=== PATIENT | male | born 1950 | race Caucasian/White ===

== ENCOUNTER 2024-04-14 16:10 | Inpatient (IN) | payer MEDICARE, SELFPAY ==
[2024-04-14] VITALS (10 sets, daily range): BP systolic 117–208; BP diastolic 69–118; BMI 21.7
[2024-04-14 11:53] LABS: Glucose - Point of Care 92 mg/dl (70-99)
[2024-04-14 12:36] LABS: ALT (SGPT) 22 U/L (0-50); AST (SGOT) 25 U/L (17-59); Alkaline Phosphatase 134 U/L (38-126); Blood Urea Nitrogen 26 mg/dl (9-20); Carbon Dioxide 22 mmol/L (22-30); Chloride 103 mmol/L (98-107); Glucose 91 mg/dl (70-99); Sodium 142 mmol/L (135-145); Total Bilirubin 1.1 mg/dl (0.2-1.3); Total Protein 7.6 g/dl (6.3-8.2); eGFR > 60.00
[2024-04-14 12:45] LABS: Hematocrit 49.2 % (39.0-52.0); Hemoglobin 16.9 g/dL (13.0-18.0); Mean Corp Hgb Conc. 34.3 g/dL (33.0-37.0); Mean Corpuscular Hgb 29.5 pg (27.0-31.0); Mean Corpuscular Volume 85.9 fL (80.0-94.0); Mean Platelet Volume 10.3 fL (7.4-10.4); Platelet Count 437 10^3/uL (130-400); Red Blood Cell Count 5.73 10^6/uL (4.70-6.10); Red Cell Dist. Width 12.7 % (11.5-14.5); White Blood Cell Count 26.4 10^3/uL (4.8-10.8)
[2024-04-14 12:47] LABS: % Basophils 0.5 % (0-2); % Eosinophils 0.1 % (0-6); % Immature Granulocytes 1.2 % (0-0.5); % Lymphocytes 3.8 % (20.5-51.1); % Monocytes 5.1 % (1.7-9.3); % Neutrophils 89.3 % (42.2-75.2); Absolute Basophils 0.1 10^3/uL (0-0.2); Absolute Immature Granulocytes 0.3 10^3/uL (0-0.05); Absolute Monocytes 1.4 10^3/uL (0.1-0.6); Absolute Neutrophils 23.6 10^3/uL (1.4-6.5); Nucleated Red Blood Cells % 0 % (-)
[2024-04-14 13:06] LABS: Urine Albumin 3+ (Neg - Trace); Urine Bilirubin Negative (Negative); Urine Character Cloudy (Clear); Urine Color Yellow; Urine Glucose Negative (Negative); Urine Ketone Negative (Negative); Urine Leukocyte 3+ (Negative); Urine Nitrite Negative (Negative); Urine Occult Blood 4+ (Negative); Urine Specific Gravity 1.015 (<1.030); Urine Urobilinogen Negative (Neg - 1+)
[2024-04-14 13:20] LABS: COVID-19 Antigen Negative (Negative)
[2024-04-14 13:31] LABS: Troponin I < 0.012 ng/ml
[2024-04-14 13:43] LABS: Urine Amorphous Seen; Urine Squamous Cell 0-2 /LPF (Few)
[2024-04-14 13:45] LABS: Urine Bacteria Many (Negative); Urine White Cell >100 /HPF (0-5)
--- NOTE | 2024-04-14 14:07 | ED.GENMED ---
History of Present Illness
General
Chief Complaint: Change in Mental Status
Source: patient
Exam Limitations: none
Time Seen by Provider: 04/14/24 12:40
History of Present Illness
History of Present Illness:
73-year-old male presents from nursing facility with history of not acting himself. He seemed confused earlier today per staff. He has a history of a stroke resulting in right-sided deficit. He is minimally conversive. No reported fever.
Patient does not provide any history of pain.
Past History
Past History
ED Past Medical History: CVA, HTN, Hypercholesterolemia and Psychiatric
ED Past Surgical History: Other
Social History
Tobacco: Non-smoker
Alcohol: Daily (wine)
Drug: None
Personal:
Living: alone
Employment: Disabled
Family History
Family History: Other
Phy Exam
Physical Exam
Physical Exam:
General: Well developed male no acute respiratory distress
HEENT: Normocephalic atraumatic
Heart: Tachycardic but regular
Lungs: Clear no wheeze
Abdomen is slightly distended and tender over the suprapubic region.
Extremities: No cyanosis
Skin: Warm but diaphoretic
Course
Orders/Labs/Results
Orders:
Orders
04/14/24 11:46
Electrocardiogram (*1) Urgent
Reason for Study: TIA/Stroke
EKG- Treatment ONCE
04/14/24 12:09
CMP [Comprehensive Metabolic Panel] Urgent
Complete Blood Count/With Diff Urgent
04/14/24 12:45
Lidocaine 2% [Lidocaine Uro-Jet 2%] 1 syringe .ROUTE .STK-MED ONE
04/14/24 12:51
CT Head W/o Iv Contrast Urgent
Comment:
Reason For Exam: change of mental status
04/14/24 12:53
CR Chest Portable - 1 View Urgent
Comment:
Reason For Exam: change of mental status
Reason Study Needs to be Portable: Unable to Transport
04/14/24 12:57
COVID-19 Antigen Urgent
Source: Nasal Swab
Troponin I Urgent
Urinalysis Reflex To Culture Urgent
Date Specimen was Collected: 04/14/24
Time Specimen was Collected: 11:46
Urine Microscopic Reflex Cult Urgent
Influenza A+B Rapid Molecular Urgent
REHANA Source: Nasal Swab
Specimen Description:
Urine Culture Urgent
REHANA Source: U
Specimen Description:
Date Specimen was Collected: 04/14/24
Time Specimen was Collected: 11:46
04/14/24 14:10
0.9% Sodium Chloride 1000 ml [Nss] 1,000 ml IV BOLUS
CefTRIAXone [Rocephin] 1,000 mg IV NOW STA
04/14/24 15:00
Blood Culture Q30M
REHANA Source: Blood/Venous
Specimen Description:
04/14/24 15:30
Blood Culture Q30M
REHANA Source: Blood/Venous
Specimen Description:
Abnormal Lab Results
04/14/24 04/14/24
12:09 12:57
WBC 26.4 H 10^3/uL
(4.8-10.8)
Plt Count 437 H 10^3/uL
(130-400)
Abs Immat Gran (auto) 0.3 H 10^3/uL
(0-0.05)
Absolute Neuts (auto) 23.6 H 10^3/uL
(1.4-6.5)
Absolute Lymphs (auto) 1.0 L 10^3/uL
(1.2-3.4)
Absolute Monos (auto) 1.4 H 10^3/uL
(0.1-0.6)
Immature Gran % 1.2 H %
(0-0.5)
Neutrophils % 89.3 H %
(42.2-75.2)
Lymphocytes % 3.8 L %
(20.5-51.1)
BUN 26 H mg/dl
(9-20)
Alkaline Phosphatase 134 H U/L
(38-126)
Ur Occult Blood Reflex 4+ A
(Negative)
Leukocyte Esterase Rfl 3+ A
(Negative)
Urine RBC 3-6 A /HPF
(0-2)
Urine WBC (Reflex) >100 A /HPF
(0-5)
Urine Bacteria (Reflex) Many A
(Negative)
Urine Albumin (Reflex) 3+ A
(Neg - Trace)
04/14/24 12:09
04/14/24 12:09
Vital Signs
Initial and Last Documented VS:
Initial Vital Signs
Pulse Resp BP Pulse Ox
102 28 208/118 96
04/14/24 11:47 04/14/24 11:47 04/14/24 11:47 04/14/24 11:47
Last Documented Vital Signs
Temp Pulse Resp BP Pulse Ox
98 F 90 16 139/76 94
04/14/24 12:11 04/14/24 14:33 04/14/24 14:33 04/14/24 14:33 04/14/24 14:33
MDM/Problems Addressed
Differential Diagnosis Includes:
Patient with elevated blood pressure readings and change in mental status from nursing facility. History of CVA. Differential could include infectious source CVA. He is suprapubic area is distended and tender on exam consider urinary retention.
Bedside bladder scan demonstrates greater than 600 mL in his bladder.
Rey catheter was inserted for acute urinary retention and the blood pressure improved. Labs demonstrated white blood cell count of 26,000. Catheterized urine specimen concerning for infection.
*Critical Care Note
Total Time (30-74mins, 75-104mins- exclusive of procedures): Not Applicable
Update Note
Update Note:
Workup demonstrates leukocytosis with a white count of 26,000. Urinalysis suggestive of UTI. Patient had acute urinary retention and Rey catheter was placed. Blood cultures ordered. Fluids ordered. Rocephin ordered. Will mid to hospital for
mental status, leukocytosis in the setting of UTI
ED Attending Note
-
Portions of this chart may have been created with voice recognition software.� Occasional wrong word or��sound alike� substitutions may have occurred due to the inherent limitations of voice recognition software.
Discharge Plan
Departure
Patient Disposition: Admit
Date of Disposition: 04/14/24
Time of Disposition: 15:12
Presentation/result/management discussed w/ accepting MD/DO: Hospitalist
Discharge Problem:
Acute UTI
Prescriptions:
No Action
atorvastatin 40 MG tablet
80 mg PO DAILY
lamotrigine 200 MG tablet
200 mg PO DAILY
lisinopril 40 MG tablet
40 mg PO DAILY
aspirin 81 MG tablet,delayed release (DR/EC)
81 mg PO DAILY 0RF
melatonin 5 MG tablet
5 mg PO HSPRN PRN (Reason: sleep) 0RF
thiamine HCl (vitamin B1) 100 MG tablet
100 mg PO DAILY 0RF
meloxicam [Mobic] 7.5 mg Tablet
7.5 mg PO DAILY
venlafaxine 100 mg Tablet
100 mg PO DAILY
amitriptyline 25 mg Tablet
25 mg PO HS
aripiprazole [Abilify] 5 mg Tablet
7 mg PO DAILY
bupropion HCl [Wellbutrin XL] 300 mg Tablet Extended Release 24 Hr
450 mg PO DAILY
Janumet 50-500 mg Tablet
1 tab PO BID
insulin glargine [Basaglar KwikPen U-100 Insulin] 100 unit/mL (3 mL) Insulin Pen
12 unit SC QPM
Cyanacobalamin
1,000 mcg PO DAILY
Referrals:
Silas Crooks DO [Family Provider] -
Interventions
Interventions:
*Risk Screen - Suicide Last Done: 04/14/24 12:08
*Neglect/Abuse Screening Last Done: 04/14/24 12:08
ED- Fall Risk Assessment Last Done: 04/14/24 13:00
*ED COVID-19 Vaccine History Last Done: 04/14/24 12:11
ED- Pulmonary Assessment Last Done: 04/14/24 13:00
ED- Neurological Assessment Last Done: 04/14/24 13:00
ED- Cardiac Assessment Last Done: 04/14/24 13:00
Discharge Date and Time
Print Language: COMORAN
[2024-04-14] MEDS: ROCEPHIN 1000 MG IV (14:31)
[2024-04-14] MEDS: NSS 1000 IV ×2 (14:31→21:46)
--- NOTE | 2024-04-14 15:25 | HPS.HSE ---
Addendum entered and electronically signed by Dinorah So MD 04/14/24 16:48:
*hx Bipolar
-UNEMPLOYMENT EXAMINER regimen as listed below
Addendum entered and electronically signed by Dinorah So MD 04/14/24 16:47:
Imaging:
Head CT:
IMPRESSION:
There are no acute intracranial abnormalities.
There is moderate diffuse cortical atrophy with nonspecific moderate white matter changes as described above.
There is old 4 cm left occipital infarct which was not present on the prior study
There is old 4 cm left parietal infarct which was present on the prior study
There is old 1.8 cm infarct in the left lentiform nucleus and centrum semiovale which was present on the previous examination
CXR
IMPRESSION:
No active cardiopulmonary disease.
Original Note:
Family Physician
-
Family Physician: Silas Crooks DO
Chief Complaint
-
altered mental status
History of Present Illness
Mr. Kieran Walsh is a 73 yo man with hx CVA with residual right-sided weakness, essential HTN, HLD, [place] resident presents with confusion.
Patient on exam is very somnolent and is not conversant. He nods slowly yes or no, mainly with eyes closed. Seen with friend at bedside. Friend states patient has been declining over past several years; had stroke 10 years ago. He has not been
ambulatory for several years, wheelchair bound. This morning he was found to be lethargic and so brought to the ER.
Patient cannot answer ROS questions given somnolence.
Medical History
Past Medical History
Past Medical History: Reports Other (hx CVA with residual right-sided weakness, essential HTN, HLD)
Past Surgical History: Reports Other
Social History
Tobacco: Non-smoker
Family History
Family History: Not pertinent
Allergies / Home Medications
Allergies reflects when Allergies were last updated in [employer].
Home Medications with original date entered in [employer]
Allergy/Medication List:
Allergies
Allergy/AdvReac Type Severity Reaction Status Date / Time
influenza virus vaccine, Allergy Unknown made him Verified 04/14/24 14:02
specific sick and
got the flu
STERI STRIPS Allergy Unknown Unknown Uncoded 04/14/24 14:02
steri strips Allergy Rash Uncoded 04/14/24 14:02
Home Medications
atorvastatin 40 mg tablet 80 mg PO DAILY High cholesterol 08/29/16
lamotrigine 200 mg tablet 200 mg PO DAILY Mental Health/Anxiety 09/10/20
lisinopril 40 mg tablet 40 mg PO DAILY Blood pressure 09/10/20
aspirin 81 mg tablet,delayed release 81 mg PO DAILY 09/13/20
melatonin 5 mg tablet 5 mg PO HSPRN PRN sleep 09/26/20
thiamine HCl (vitamin B1) 100 mg tablet 100 mg PO DAILY 01/03/21
Cyanacobalamin 1,000 mcg PO DAILY 04/14/24
amitriptyline 25 mg tablet 25 mg PO HS 04/14/24
aripiprazole 5 mg tablet (Abilify) 7 mg PO DAILY 04/14/24
bupropion HCl 300 mg 24 hr tablet, extended release (Wellbutrin XL) 450 mg PO DAILY 04/14/24
insulin glargine 100 unit/mL (3 mL) subcutaneous pen (Basaglar KwikPen U-100 Insulin) 12 unit SC QPM 04/14/24
meloxicam 7.5 mg tablet 7.5 mg PO DAILY 04/14/24
sitagliptin phosphate 50 mg-metformin 500 mg tablet (Janumet) 1 tab PO BID 04/14/24
venlafaxine 100 mg tablet 100 mg PO DAILY 04/14/24
Review of Systems
-
Unable to obtain full review of systems at this time due to: Patient Non-verbal
History Source: Patient
Physical Exam
Vital Signs
Vital Signs
Temp Pulse Resp BP Pulse Ox
98 F 90 16 139/76 94
04/14/24 12:11 04/14/24 14:33 04/14/24 14:33 04/14/24 14:33 04/14/24 14:33
Physical Exam
General: Other (patient is somnolent, opens eyes to voice but does not speak; nods no to pain )
HEENT: PERRLA
Respiratory: Clear; No Wheezes
Cardiac: S1/S2 and Regular Rhythm
GI: Soft and Non Tender
Musculoskeletal: No Edema
Skin: Warm and Dry; No Rash
Neuro: Awake
Psych: Confused
Laboratory Results
-
04/14/24 12:09
04/14/24 12:09
Laboratory Results
Total Bilirubin 1.1 mg/dl (0.2-1.3) 04/14/24 12:09
AST 25 U/L (17-59) 04/14/24 12:09
ALT 22 U/L (0-50) 04/14/24 12:09
Alkaline Phosphatase 134 U/L (38-126) H 04/14/24 12:09
Troponin I < 0.012 ng/ml 04/14/24 12:57
Data Reviewed
-
Diagnostic Radiology: Report Reviewed by me
Lab Data: Labs Reviewed by me
Impression/Plan
-
Mr. Kieran Walsh is a 73 yo man with hx CVA with residual right-sided weakness, essential HTN, HLD, [place] resident presents with confusion.
Triage VS: T 98, P 102, RR 28, BP 208/118, SpO2 96%
LABS: WBC 26.4, Hg 16.9, PLT 437, Na 142, K+ 4.0, Cl 103, BUN 26, Cr 1.1, Glucose 91, T. Bili 1.1, AST 25, ALT 22, Alk Phos 134, Trop < 0.012
UA with > 100 WBC
Flu and Covid Negative
MAR: IVF, IV Ceftriaxone
Sepsis 2/2 UTI
TME 2/2 Above
-at baseline patient can hold a conversation per friend, he is now lethargic and non-verbal, opens eyes to voice
-admit to medicine
-continue IV Ceftriaxone
-IVF
-F/U blood and urine cultures
-PT/OT/ST
-cannot assess pain, will obatin CT A/P to rule out renal stone
-NPO (hold meds if patient remains lethargic))
IDDM
-given patient NPO and BGL 90's now, will hold long acting insulin (resume if hyperglycemic)
-hold UNEMPLOYMENT EXAMINER Janumet
-ISS low
Hx CVA with residual right-sided weakness
[place] Resident
-UNEMPLOYMENT EXAMINER asa/statin
Essential HTN
-hold UNEMPLOYMENT EXAMINER Lisinopril
Depression/Anxiety
-UNEMPLOYMENT EXAMINER regimen: Venlafaxine, Lamotrigine, Wellbutrin, Abilify, Amitriptyline when able to take PO
Hyperlipidemia
-UNEMPLOYMENT EXAMINER statin
DVT PPx Hep subQ
DNR - confirmed on patient's records from [place]
76 minutes spent on patient care
--- NOTE | 2024-04-14 20:20 | PTCARENOTE ---
Patient admitted from ED. Patient AAO x1 to self, on RA, jackson catheter in place, pt in no acute distress. Patient is minimally conversive and able to answer some yes/no questions. Patient is a Q2H turn/reposition. Skin assessment complete. Bed
alarm is active. Call mckinnon within reach.
[2024-04-14 21:28] LABS: Glucose - Point of Care 79 mg/dl (70-99)
[2024-04-14] MEDS: NOVOLOG FLEXPEN-LOW RESISTANCE SC (21:40)
[2024-04-14] MEDS: LOVENOX 40 MG SC (21:46)
[2024-04-14] MEDS: ELAVIL 25 MG PO (21:46)
[2024-04-15 06:08] LABS: Glucose - Point of Care 69 mg/dl (70-99)
[2024-04-15] MEDS: NSS 1000 IV ×2 (06:12→17:43)
[2024-04-15 06:24] LABS: Glucose - Point of Care 85 mg/dl (70-99)
--- NOTE | 2024-04-15 06:40 | PTCARENOTE ---
Patient blood glucose 69. Given apple juice and rechecked 15 minutes later - blood glucose 85. Patient is asymptomatic. Will continue to monitor.
[2024-04-15] MEDS: NOVOLOG FLEXPEN-LOW RESISTANCE SC ×2 (06:53→12:30)
[2024-04-15 07:06] VITALS: BP 142/72
[2024-04-15 08:03] LABS: Blood Urea Nitrogen 23 mg/dl (9-20); Calcium 8.1 mg/dl (8.4-10.2); Carbon Dioxide 23 mmol/L (22-30); Chloride 107 mmol/L (98-107); Estimated Creatinine Clearance 92 ml/min; Glucose 59 mg/dl (70-99); Magnesium 1.7 mg/dl (1.6-2.3); Potassium 3.4 mmol/L (3.5-5.1); Sodium 143 mmol/L (135-145); eGFR > 60.00
[2024-04-15] MEDS: EFFEXOR 100 MG PO (08:26)
[2024-04-15] MEDS: ABILIFY 7 MG PO (08:26)
[2024-04-15] MEDS: LIPITOR 80 MG PO (08:26)
[2024-04-15] MEDS: ASPIR LOW (ENTERIC COATED) 81 MG PO (08:26)
[2024-04-15] MEDS: WELLBUTRIN XL (24 hour extended release) 450 MG PO (08:27)
[2024-04-15] MEDS: LAMICTAL 200 MG PO (08:27)
--- NOTE | 2024-04-15 08:54 | W.PN.HOSP.TC ---
Addendum entered and electronically signed by Linda Sutherland MD 04/15/24 15:52:
I saw and evaluated the patient. I reviewed the resident�s note and agree with findings and plan as documented in the resident�s note.
A/P:
# Acute metabolic encephalopathy 2/2 UTI
# Sepsis secondary to complicated UTI
- tachycardia, leukocytosis, tachypnea on admission w/ source of infection (UA suggestive of UTI). S/p 3L IVF.
- Follow blood Cx and urine culture. C/w empiric Ceftriaxone
- MS significantly improved, today awake and conversant
# Acute urinary retention
s/p jackson placement on admission, consider TOV tmr
Start empiric Flomax
# Dysphagia
- cleared by speech for IDDSI 4 diet w/ thin liquids. Speech rec NPO if mental status deteriorates again.
# Expressive Aphasia, resolved
- CT Head demonstrates prior ischemic damage. Residual weakness and decorticate flexion of R arm. Patient's friend at bedside admits expressive aphasia as a chronic issue post stroke. Will continue to monitor mental status.
# Thrombocytosis - likely reactive secondary to UTI, improving
# IDDM
resume STAFF TECHNOLOGIST Lantus but at lower dose at 8 units HS
cover with ISS for now.
# History fo CVA - c/w aspirin & plavix.
# Hypercholesterolemia - c/w atorvastatin
# Essential Hypertension
resume STAFF TECHNOLOGIST lisinopril with holding parameter
# Depression/Anxiety - c/w venlafaxine, lamotrigine, wellbutrin, abilify and amitriptyline.
Diet - IDDSI 4 Puree Diet w/ Thin Liquids
DVT Ppx - on Lovenox SC
Code Status - DNR
Original Note:
Today's Communication/Plan
-
pending cultures. C/w antibiotics.
Assessment / Plan
Assessment / Plan
73 year old male
#Sepsis secondary to UTI
- tachycardia, leukocytosis, tachypnea on admission w/ source of infection (UA suggestive of UTI). S/p 3L IVF.
- Blood Cx pending. urine culture pending. C/w Ceftriaxone pending Cx/Sens.
#Dysphagia
- cleared by speech for IDDSI 4 diet w/ thin liquids. Speech rec NPO if mental status deteriorates again.
#Expressive Aphasia
- CT Head demonstrates prior ischemic damage. Residual weakness and decorticate flexion of R arm. Patient's friend at bedside admits expressive aphasia as a chronic issue post stroke. Will continue to monitor mental status.
#Thrombocytosis - likely multifactorial. Reactive secondary to UTI vs. hemoconcentration. Will monitor.
#IDT2DM - Patient NPO with stable blood glucose; holding home insulin and Janumet. C/w LDISS for now.
#History fo CVA - c/w aspirin & plavix.
#Hypercholesterolemia - c/w atorvastatin
#Essential Hypertension - Likely held in the setting of Sepsis. Will observe for signs of hemodynamic stability before restarting.
#Depression/Anxiety - c/w venlafaxine, lamotrigine, wellbutrin, abilify and amitriptyline.
Diet - IDDSI 4 Puree Diet w/ Thin Liquids
DVT Ppx - on Lovenox SC
Code Status - DNR
Anticipated Discharge: 24 - 48 hours
Subjective/Interval History
-
Patient is AOx3 today. Though, he does have some expressive aphasia which friend bedside let me know is baseline for him. Otherwise he is improving, no new fevers, chills.
Objective Data
-
Labs:
Laboratory Results
04/15/24
05:56
WBC Pending
Hgb Pending
Hct Pending
Plt Count Pending
Sodium 143
Potassium 3.4 L
Chloride 107
Carbon Dioxide 23
BUN 23 H
Creatinine 0.7
Glucose 59 L
Calcium 8.1 L D
Vital Signs:
Vital Signs
Temp Pulse Resp BP Pulse Ox
98.3 F 86 20 142/72 97
04/15/24 07:06 04/15/24 07:06 04/15/24 07:06 04/15/24 07:06 04/15/24 07:06
I&O
04/14/24 04/15/24 04/16/24
06:59 06:59 06:59
Intake Total 240 / 240
Output Total 550 / 550
Balance -310 / -310
Review of Systems
-
History Source: Patient
All other systems: Reviewed and negative
Constitutional: Denies Fever, Night Sweats or Chills
EENT: Denies Sore Throat or Runny Nose
Respiratory: Denies Cough, Trouble Breathing or Wheezing
Cardiac: Denies Chest Pain or Palpitations
Abdomen/GI: Denies Abdominal Pain, Nausea, Vomiting or Diarrhea
Breast: Reports N/A
Genitourinary: Reports UTI; Denies Dysuria or Flank Pain
Musculoskeletal: Denies Joint Pain, Joint Swelling or Muscle Pain
Skin: Denies Rash
Neuro: Reports Weakness (Stable from CVA ); Denies Dizzy or Headache
Hematologic / Lymphatic: Denies Bleeding
Physical Exam
-
General: Well Developed, Well Nourished, No Apparent Distress and Comfortable
HEENT: Normocephalic, Atraumatic, Moist Mucous Membranes, Anicteric, [place] Conjunctivae, PERRLA, Nose Appears Normal and Ears Appear Normal
Respiratory: Clear to Auscultation and Decreased Breath Sounds; Negative Wheezes, Rales or Rhonchi
Cardiac: Regular Rhythm and S1/S2; Negative Murmur or Rub
GI: Soft, Nontender, Nondistended and Normal Bowel Sounds
Rectal: Deferred by Provider
Genito-urinary: Clear Urine and Jackson
Musculoskeletal: No Clubbing, No Cyanosis and No Edema
Skin: Warm and Dry
Neuro: AO x 3 and Other (Expressive aphasia; stable per friend at bedside. Right arm decorticate contracture. )
[2024-04-15] MEDS: KCL 270 MEQ IV (09:18)
[2024-04-15 09:36] LABS: % Basophils 0.7 % (0-2); % Eosinophils 2.1 % (0-6); % Immature Granulocytes 0.9 % (0-0.5); % Lymphocytes 18.4 % (20.5-51.1); % Neutrophils 70.9 % (42.2-75.2); Absolute Basophils 0.1 10^3/uL (0-0.2); Absolute Eosinophils 0.4 10^3/uL (0-0.7); Absolute Immature Granulocytes 0.2 10^3/uL (0-0.05); Absolute Lymphocytes 3.1 10^3/uL (1.2-3.4); Absolute Monocytes 1.2 10^3/uL (0.1-0.6); Hematocrit 40.3 % (39.0-52.0); Hemoglobin 13.7 g/dL (13.0-18.0); Mean Corpuscular Hgb 29.3 pg (27.0-31.0); Mean Corpuscular Volume 86.1 fL (80.0-94.0); Mean Platelet Volume 10.6 fL (7.4-10.4); Nucleated Red Blood Cells % 0 % (-); Platelet Count 312 10^3/uL (130-400); Red Blood Cell Count 4.68 10^6/uL (4.70-6.10)
[2024-04-15 09:55] VITALS: BP 134/74; PULSE 84; O2SAT 96
[2024-04-15 10:05] LABS: Glycohemoglobin (HgbA1c) 5.9 % (4.0-5.6)
--- NOTE | 2024-04-15 10:36 | PTOTSP ---
SPEECH THERAPY SWALLOW EVALUATION:
Patient exhibits clinical signs of oropharyngeal dysphagia, likely chronic related to prior CVA and acutely exacerbated by sepsis 2/2 UTI, TME. Patient remains at risk for aspiration and related complications given confusion and limited mobility.
CXR currently clear. Recommend temporary modified diet IDDSI Level 4 Puree, thin liquids. Medications whole in puree. Aspiration precautions: 1:1 assistance; Upright positioning; Small sips/bites; Slow rate of intake; Ensure patient swallows prior
to next bite; Monitor for signs of aspiration and d/c oral diet if any decline in mental/respiratory status. Swallow prognosis is likely good. ST to follow at the acute care level, determine indication for instrumental assessment of swallowing as
appropriate, monitor CXR/labs/respiratory status, and provide continued diagnostic therapy as appropriate.
RECOMMEND:
1) IDDSI Level 4 Puree, thin liquids
2) Medications whole in puree
3) Aspiration precautions: 1:1 assistance; Upright positioning; Small sips/bites; Slow rate of intake; Ensure patient swallows prior to next bite; Monitor for signs of aspiration and d/c oral diet if any decline in mental/respiratory status
4) Oral care 3x/day
5) ST to follow
[2024-04-15 12:29] LABS: Glucose - Point of Care 98 mg/dl (70-99)
[2024-04-15] MEDS: STERILE WATER FOR INJECTION 10 ML IV (13:14)
[2024-04-15] MEDS: ROCEPHIN 1000 MG IV (13:14)
[2024-04-15 15:05] VITALS: BP 122/71
--- NOTE | 2024-04-15 15:08 | WOUNDNOTE ---
[facility] RN NOTE: Reviewed chart and met with patient. Patient found sitting in chair eating lunch. Patient stood for assessment with assistance from DEEJAY Leroy. No open wound on buttocks, but there are scattered dry areas that may me do from friction. 5
layer silicone border foam applied to sacrum and air cushion applied to chair. Patient reported comfort after these measures. DEEJAY Leroy to add static air overlay to bed before patient gets back into bed. Patient has jackson for moisture management. Will
sign off.
--- NOTE | 2024-04-15 15:12 | CM ---
Patient seen at bedside. Patient states that he lives in an assisted living. CM reviewed chart and Patient is LTC at [facility]. Patient is a wheelchair dependent patient with one person assist for transfers per Admissions at [facility]. CM will continue to
follow for discharge planning needs.
Plan; return to SNF [facility] when medically appropriate
--- NOTE | 2024-04-15 15:12 | PN.CDI ---
CDI
- -
CDI:
Physician Documentation Request
Admit Date: 04/14/24 16:10
Dear Doctor Koko,
Please review the following and provide your response in the progress notes.
Clinical Indicators:
Pt admitted with Sepsis, UTI, and TME.
04/14 In wound panel RN documented sacral PI POA
Physician documentation of the type and location of wounds is required for compliant documentation. Based on the above clinical findings and your assessment, please provide the following in your progress note:
Location of the ulcer/wound, including laterality.
Type (etiology) of ulcer/wound:
Sacral Pressure Injury POA
Non-pressure wound POA
Other
Use of terms such as suspected, likely, concern for, or probable (associated with a specific diagnosis that is being evaluated, monitored, or treated as if it exists) are acceptable and can be coded in the inpatient setting, when documented at the
time of discharge.
Thank you,
Tasia Reza RN, BSN
CDI Specialist
[place] [employer]
Please use your independent medical judgment in providing your response.
*Source: National Pressure Ulcer Advisory Panel (NPUAP)
[2024-04-15 15:30] VITALS: BMI 21.7
[2024-04-15 16:47] LABS: Glucose - Point of Care 163 mg/dl (70-99)
[2024-04-15] MEDS: LOVENOX 40 MG SC (17:44)
[2024-04-15] MEDS: NOVOLOG FLEXPEN-LOW RESISTANCE 1 UNITS SC (17:45)
[2024-04-15 22:01] LABS: Glucose - Point of Care 154 mg/dl (70-99)
[2024-04-15] MEDS: LANTUS 0.08 UNITS SC (22:09)
[2024-04-15] MEDS: ELAVIL 25 MG PO (22:09)
[2024-04-15 23:55] VITALS: BP 133/72
[2024-04-16] MEDS: NSS 1000 IV (02:43)
[2024-04-16 07:00] VITALS: BP 149/79
[2024-04-16 07:31] LABS: Glucose - Point of Care 83 mg/dl (70-99)
[2024-04-16] MEDS: NOVOLOG FLEXPEN-LOW RESISTANCE SC ×2 (07:36→12:16)
[2024-04-16] MEDS: WELLBUTRIN XL (24 hour extended release) 450 MG PO (08:12)
[2024-04-16] MEDS: ABILIFY 7 MG PO (08:12)
[2024-04-16] MEDS: ASPIR LOW (ENTERIC COATED) 81 MG PO (08:12)
[2024-04-16] MEDS: ZESTRIL 40 MG PO (08:13)
[2024-04-16] MEDS: FLOMAX 0.4 MG PO (08:13)
[2024-04-16] MEDS: LAMICTAL 200 MG PO (08:13)
[2024-04-16] MEDS: EFFEXOR 100 MG PO (08:13)
[2024-04-16] MEDS: LIPITOR 80 MG PO (08:14)
--- NOTE | 2024-04-16 08:31 | W.PN.HOSP.TC ---
Addendum entered and electronically signed by Khloe Guzman MD 04/16/24 15:11:
I saw and evaluated the patient independently. I reviewed the resident�s note and agree with findings and plan as documented by Dr. Cifuentes.
GENERAL: well developed, well nourished, male in no apparent distress
HEENT: NC/AT
HEART: regular rate and rhythm, +S1, +S2
LUNGS : clear to auscultation bilaterally
ABDOM: soft, nontender, nondistended, + bowel sounds
EXT: no cyanosis, clubbing, or edema
NEUROLOGIC: right sided contractures with expressive aphasia
: jackson cath
Sepsis (POA) secondary to Enterococcus UTI --blood cultures negative--WBC improved 26.4 to 8.7--cont rocephin
Dysphagia/expressive aphasia/CVA-- cleared by speech for IDDSI 4 diet w/thin liquids
urinary retention--likely cause of sepsis since not voiding well and 'pus' removed with jackson placement--start low dose flomax
Thrombocytosis - likely multifactorial. Reactive secondary to UTI vs. hemoconcentration. Will monitor.
type 2 DM insulin requiring - C/w basal insulin 8U and low dose ISS-- can restart Janumet
History of CVA - Right sided hemiparalysis w/ residual left sided weakness. Unable to ambulate. c/w aspirin & plavix.
Hypercholesterolemia - c/w atorvastatin
Essential Hypertension - Likely held in the setting of Sepsis. Restarted on Lisinopril.
Depression/Anxiety - c/w venlafaxine, lamotrigine, wellbutrin, abilify and amitriptyline.
DVT Proph - on Lovenox SC
Code Status - DNR
Hopeful d/c back to [facility] Thursday
Original Note:
Today's Communication/Plan
-
Pending cultures. C/w Abx.
Assessment / Plan
Assessment / Plan
73 year old male
#Sepsis secondary to UTI
#Leukocytosis (resolved)
- tachycardia, leukocytosis, tachypnea on admission w/ source of infection (UA suggestive of UTI). S/p 3L IVF.
- Blood Cx NGTD x24hr. urine culture pending. C/w Ceftriaxone pending Cx/Sens.
#Dysphagia
- cleared by speech for IDDSI 4 diet w/ thin liquids. Speech rec NPO if mental status deteriorates again.
#Expressive Aphasia
- CT Head demonstrates prior ischemic damage. Residual weakness and decorticate flexion of R arm. Patient's friend at bedside admits expressive aphasia as a chronic issue post stroke. Will continue to monitor mental status.
#Thrombocytosis - likely multifactorial. Reactive secondary to UTI vs. hemoconcentration. Will monitor.
#IDT2DM - C/w basal insulin 8U and LDISS. Hold Janumet for now.
#History of CVA - Right sided hemiparalysis w/ residual left sided weakness. Unable to ambulate. c/w aspirin & plavix.
#Hypercholesterolemia - c/w atorvastatin
#Essential Hypertension - Likely held in the setting of Sepsis. Restarted on Lisinopril.
#Depression/Anxiety - c/w venlafaxine, lamotrigine, wellbutrin, abilify and amitriptyline.
Diet - IDDSI 4 Puree Diet w/ Thin Liquids
DVT Ppx - on Lovenox SC
Code Status - DNR
Anticipated Discharge: 24 - 48 hours
Subjective/Interval History
-
Feeling well. No new fevers or chills.
Objective Data
-
Labs:
Laboratory Results
04/16/24
08:29
WBC Pending
Hgb Pending
Hct Pending
Plt Count Pending
Sodium Pending
Potassium Pending
Chloride Pending
Carbon Dioxide Pending
BUN Pending
Creatinine Pending
Glucose Pending
Calcium Pending
Total Bilirubin Pending
AST Pending
ALT Pending
Alkaline Phosphatase Pending
Vital Signs:
Vital Signs
Temp Pulse Resp BP Pulse Ox
97.5 F 79 18 149/79 100
04/16/24 07:00 04/16/24 08:13 04/16/24 07:00 04/16/24 08:13 04/16/24 07:00
I&O
04/15/24 04/16/24 04/17/24
06:59 06:59 06:59
Intake Total 240 / 240 1650 / 1650
Output Total 550 / 550 450 / 450
Balance -310 / -310 1200 / 1200
Review of Systems
-
History Source: Patient
Constitutional: Reports No Symptoms
EENT: Reports No Symptoms Reported
Respiratory: Reports No Symptoms
Cardiac: Reports No Symptoms
Abdomen/GI: Reports No Symptoms
Genitourinary: Reports No Symptoms
Musculoskeletal: Reports No Symptoms
Neuro: Reports Weakness and Other (R hemiparesis w/ left sided weakness)
Physical Exam
-
General: Well Developed, Well Nourished, No Apparent Distress and Comfortable
HEENT: Normocephalic, Atraumatic, Moist Mucous Membranes, Anicteric, Vidor Conjunctivae, PERRLA, Nose Appears Normal and Ears Appear Normal
Respiratory: Clear to Auscultation; Negative Wheezes, Rales or Rhonchi
Cardiac: Regular Rhythm and S1/S2; Negative Murmur or Tachycardic
Breast: N/A
GI: Soft, Nontender, Nondistended and Normal Bowel Sounds
Genito-urinary: Clear Urine and Jackson
Musculoskeletal: No Clubbing, No Cyanosis and No Edema
Skin: Warm and Dry
Neuro: AO x 3 and Other (R sided hemiparesis w/ contracture & residual left sided weakness.)
[2024-04-16 09:17] LABS: % Basophils 0.6 % (0-2); % Immature Granulocytes 0.7 % (0-0.5); % Lymphocytes 16.1 % (20.5-51.1); % Monocytes 6.8 % (1.7-9.3); % Neutrophils 71.8 % (42.2-75.2); Absolute Basophils 0.1 10^3/uL (0-0.2); Absolute Eosinophils 0.4 10^3/uL (0-0.7); Absolute Immature Granulocytes 0.1 10^3/uL (0-0.05); Absolute Lymphocytes 1.4 10^3/uL (1.2-3.4); Absolute Monocytes 0.6 10^3/uL (0.1-0.6); Absolute Neutrophils 6.3 10^3/uL (1.4-6.5); Hematocrit 37.8 % (39.0-52.0); Hemoglobin 12.4 g/dL (13.0-18.0); Mean Corp Hgb Conc. 32.8 g/dL (33.0-37.0); Mean Corpuscular Hgb 29.2 pg (27.0-31.0); Mean Corpuscular Volume 88.9 fL (80.0-94.0); Mean Platelet Volume 10.2 fL (7.4-10.4); Nucleated Red Blood Cells % 0 % (-); Platelet Count 238 10^3/uL (130-400); Red Blood Cell Count 4.25 10^6/uL (4.70-6.10); White Blood Cell Count 8.7 10^3/uL (4.8-10.8)
[2024-04-16 09:35] LABS: ALT (SGPT) 15 U/L (0-50); AST (SGOT) 20 U/L (17-59); Albumin 3.7 g/dl (3.5-5.0); Alkaline Phosphatase 87 U/L (38-126); Blood Urea Nitrogen 12 mg/dl (9-20); Calcium 8.2 mg/dl (8.4-10.2); Carbon Dioxide 26 mmol/L (22-30); Chloride 103 mmol/L (98-107); Estimated Creatinine Clearance 108 ml/min; Glucose 102 mg/dl (70-99); Potassium 3.5 mmol/L (3.5-5.1); Sodium 140 mmol/L (135-145); Total Bilirubin 0.7 mg/dl (0.2-1.3); Total Protein 6.2 g/dl (6.3-8.2); eGFR > 60.00
[2024-04-16 10:10] VITALS: BP 141/79
[2024-04-16 11:10] VITALS: BP 141/79
[2024-04-16 12:05] LABS: Glucose - Point of Care 133 mg/dl (70-99)
[2024-04-16 15:00] VITALS: BP 134/74
[2024-04-16] MEDS: ROCEPHIN 1000 MG IV (15:08)
[2024-04-16] MEDS: STERILE WATER FOR INJECTION 10 ML IV (15:08)
--- NOTE | 2024-04-16 15:21 | CM ---
Addendum entered by Cher Fletcher 04/17/24 16:30:
Pt not medically cleared for discharge today to [facility]. Will follow to coordinate transport at discharge.
Original Note:
CM anticipates pt's return to [facility] tomorrow. Will follow to coordinate transport at discharge.
[2024-04-16 16:53] LABS: Glucose - Point of Care 155 mg/dl (70-99)
[2024-04-16] MEDS: NOVOLOG FLEXPEN-LOW RESISTANCE 1 UNITS SC (17:01)
[2024-04-16] MEDS: LOVENOX 40 MG SC (17:01)
[2024-04-16 21:07] LABS: Glucose - Point of Care 124 mg/dl (70-99)
[2024-04-16] MEDS: LANTUS 0.08 UNITS SC (21:32)
[2024-04-16] MEDS: ELAVIL 25 MG PO (21:32)
[2024-04-16 23:09] VITALS: BP 161/86
[2024-04-17] VITALS (9 sets, daily range): BP systolic 124–212; BP diastolic 73–127
--- NOTE | 2024-04-17 05:26 | PTCARENOTE ---
Patient refusing morning labs.
--- NOTE | 2024-04-17 06:20 | PTCARENOTE ---
Rey catheter removed at 0600 per order.
[2024-04-17 08:08] LABS: Glucose - Point of Care 87 mg/dl (70-99)
[2024-04-17] MEDS: NOVOLOG FLEXPEN-LOW RESISTANCE SC ×3 (08:08→18:14)
[2024-04-17] MEDS: FLOMAX PO ×2 (08:11→08:38)
[2024-04-17] MEDS: LAMICTAL PO ×2 (08:11→08:38)
[2024-04-17] MEDS: ABILIFY PO ×2 (08:11→08:38)
[2024-04-17] MEDS: LIPITOR PO ×2 (08:11→08:38)
[2024-04-17] MEDS: EFFEXOR PO ×2 (08:11→08:38)
[2024-04-17] MEDS: ASPIR LOW (ENTERIC COATED) PO ×2 (08:11→08:38)
[2024-04-17] MEDS: VITAMIN B1 PO ×2 (08:12→08:38)
[2024-04-17] MEDS: VITAMIN B-12 PO ×2 (08:12→08:38)
[2024-04-17] MEDS: ZESTRIL 40 MG PO (08:12)
[2024-04-17] MEDS: WELLBUTRIN XL (24 hour extended release) PO ×2 (08:12→08:38)
[2024-04-17] MEDS: MOBIC PO ×2 (08:12→08:38)
--- NOTE | 2024-04-17 08:46 | W.PN.HOSP.TC ---
Addendum entered and electronically signed by Khole Guzman MD 04/17/24 20:36:
I saw and evaluated the patient independently. I reviewed the resident�s note and agree with findings and plan as documented by Dr. Cifuentes.
GENERAL: well developed, well nourished, male paranoid, cold, clammy, diaphoretic
HEENT: NC/AT
HEART: regular rate and rhythm, +S1, +S2
LUNGS : clear to auscultation bilaterally
ABDOM: soft, nontender, nondistended, + bowel sounds
EXT: no cyanosis, clubbing, or edema
NEUROLOGIC: right sided contractures with expressive aphasia
: jackson cath
Sepsis (POA) secondary to Enterococcus UTI --blood cultures negative--WBC improved 26.4 to 8.7--cont rocephin
Dysphagia/expressive aphasia/CVA-- cleared by speech for IDDSI 4 diet w/thin liquids
urinary retention--likely cause of sepsis since not voiding well and 'pus' removed with jackson placement--started low dose flomax--jackson removed today and nursing reported pt urinating on his own
agitation/paranoia--refusing meds and blood draws--asked psych to see
Thrombocytosis - likely multifactorial. Reactive secondary to UTI vs. hemoconcentration. Will monitor.
type 2 DM insulin requiring - C/w basal insulin 8U and low dose ISS-- was going to restart Janumet (now need to hold with CT scan with IV contrast)
History of CVA - Right sided hemiparalysis w/ residual left sided weakness. Unable to ambulate. c/w aspirin & plavix.
Hypercholesterolemia - c/w atorvastatin
Essential Hypertension - Likely held in the setting of Sepsis. Restarted on Lisinopril.
Depression/Anxiety - c/w venlafaxine, lamotrigine, wellbutrin, abilify and amitriptyline.
DVT Proph - on Lovenox SC
Code Status - DNR
Original Note:
Today's Communication/Plan
-
Psych consult. Ct abd/pelv w/ IV. Monitor MS & hypertension
Assessment / Plan
Assessment / Plan
73 year old male
#Diarrhea?
- reports of loss of incontinence w/ diarrhea, tachycardic, hypertensive
- Ordered stool studies Norovirus/C.diff ag/toxin
- Will order stat CT Abd/pelvis with IV contrast.
#Acute Agitation w/ hypertension
- Patient acutely agitated, refusing meds, afebrile but tachycardic into the 140s with pressures in the 170s/130s. ECG at the time showing sinus tachy.
- patient on several psych medications which were not taken this morning, though he did receive them last nght.
- Ordered 0.25mg of Ativan x1 dose. Psych consult placed. Ordered hydralazine prn
#Sepsis secondary to UTI
#Leukocytosis (resolved)
- tachycardia, leukocytosis, tachypnea on admission w/ source of infection (UA suggestive of UTI). S/p 3L IVF.
- Blood Cx NGTD x24hr. urine culture + for Ecoli >100k CFUs. Refused Ceftriaxone this am.
#Dysphagia
- cleared by speech for IDDSI 4 diet w/ thin liquids. Rec NPO if mental status deteriorates again.
#Expressive Aphasia
- CT Head demonstrates prior ischemic damage. Residual weakness and decorticate flexion of R arm. Patient's friend at bedside admits expressive aphasia as a chronic issue post stroke. Will continue to monitor mental status.
#Thrombocytosis - likely multifactorial. Reactive secondary to UTI vs. hemoconcentration. Will monitor.
#IDT2DM - C/w basal insulin 8U and LDISS. Hold Janumet for now.
#History of CVA - Right sided hemiparalysis w/ residual left sided weakness. Unable to ambulate. c/w aspirin & plavix.
#Hypercholesterolemia - c/w atorvastatin
#Essential Hypertension - Likely held in the setting of Sepsis. Restarted on Lisinopril.
#Depression/Anxiety - c/w venlafaxine, lamotrigine, wellbutrin, abilify and amitriptyline.
Diet - IDDSI 4 Puree Diet w/ Thin Liquids
DVT Ppx - on Lovenox SC
Code Status - DNR
Anticipated Discharge: > 48 hours
Subjective/Interval History
-
verbally combative and paranoid this morning. per nursing has refused lab draws and all medications except lisinopril. Patient angry and guarded when asked questions about how he is feeling. paranoid of nursing staff wanting to take his blood.
Expressive aphasia makes it difficult to assess his full reasoning at the moment, though he is somewhat re-directable with careful explanation. He refused all components of the physical exam except cardiac auscultation and palpation of the abdomen.
Objective Data
-
Labs:
Laboratory Results
04/17/24
06:00
WBC Pending
Hgb Pending
Hct Pending
Plt Count Pending
Sodium Pending
Potassium Pending
Chloride Pending
Carbon Dioxide Pending
BUN Pending
Creatinine Pending
Glucose Pending
Calcium Pending
Total Bilirubin Pending
AST Pending
ALT Pending
Alkaline Phosphatase Pending
Vital Signs:
Vital Signs
Temp Pulse Resp BP Pulse Ox
98.7 F 103 20 178/100 99
04/17/24 07:33 04/17/24 07:33 04/17/24 07:33 04/17/24 07:33 04/17/24 07:33
I&O
04/16/24 04/17/24 04/18/24
06:59 06:59 06:59
Intake Total 1650 / 1650 480 / 480
Output Total 450 / 450 1100 / 2250 1150 / 1150
Balance 1200 / 1200 -620 / -1770 -1150 / -1150
Review of Systems
-
History Source: Patient
All other systems: Reviewed and negative
Constitutional: Reports No Symptoms
EENT: Reports No Symptoms Reported
Respiratory: Reports No Symptoms
Cardiac: Reports No Symptoms
Abdomen/GI: Reports No Symptoms
Genitourinary: Reports No Symptoms
Musculoskeletal: Reports No Symptoms
Physical Exam
-
General: Other (Agitated)
HEENT: Anicteric, Nose Appears Normal and Ears Appear Normal
Cardiac: Regular Rhythm and S1/S2; Negative Murmur or Tachycardic
Skin: IV Access / Catheter Site
Neuro: Awake and Alert
Psych: Agitated
[2024-04-17 11:46] LABS: Glucose - Point of Care 116 mg/dl (70-99)
[2024-04-17] MEDS: APRESOLINE 5 MG IV ×3 (11:53→16:48)
[2024-04-17] MEDS: ATIVAN 0.25 MG IV (12:17)
[2024-04-17] MEDS: NSS (PRESERVATIVE FREE) 0.125 ML IV (12:17)
--- NOTE | 2024-04-17 12:30 | PTCARENOTE ---
Pt agitated this morning refusing care, labs, all medications except was willing to take PO lisinopril. Pt very paranoid about staff. Expressive aphasia noted to be severe at time that makes communicating difficult.BP remained 176/130 after
lisinopril and HR found to be elevated 130's. Pt very diaphoretic with full body tremors. Pt placed on tele which showed sinus tachycardia 140's. Pt reports feeling 'fine'. Denies chest pain or any other pain. EKG obtained and notified who gave
order for IV hydalazine and IV ativan.
[2024-04-17 13:12] LABS: % Basophils 0.7 % (0-2); % Eosinophils 2.8 % (0-6); % Immature Granulocytes 0.5 % (0-0.5); % Lymphocytes 12.8 % (20.5-51.1); % Neutrophils 76.2 % (42.2-75.2); Absolute Basophils 0.1 10^3/uL (0-0.2); Absolute Eosinophils 0.3 10^3/uL (0-0.7); Absolute Immature Granulocytes 0.1 10^3/uL (0-0.05); Absolute Lymphocytes 1.4 10^3/uL (1.2-3.4); Absolute Monocytes 0.8 10^3/uL (0.1-0.6); Absolute Neutrophils 8.6 10^3/uL (1.4-6.5); Hematocrit 42.7 % (39.0-52.0); Hemoglobin 14.7 g/dL (13.0-18.0); Mean Corp Hgb Conc. 34.4 g/dL (33.0-37.0); Mean Corpuscular Hgb 29.5 pg (27.0-31.0); Mean Corpuscular Volume 85.6 fL (80.0-94.0); Mean Platelet Volume 10.1 fL (7.4-10.4); Nucleated Red Blood Cells % 0 % (-); Platelet Count 310 10^3/uL (130-400); Red Blood Cell Count 4.99 10^6/uL (4.70-6.10); Red Cell Dist. Width 12.5 % (11.5-14.5); White Blood Cell Count 11.2 10^3/uL (4.8-10.8)
--- NOTE | 2024-04-17 13:13 | CON.MD ---
Consultation - Medical
-
73 y/o disabled man who has resided at [facility] likely for 5 years admitted 04/14/24 for UTI with very elevated WBC and also with severe hypertension and tachycardia. He presented as paranoid and agitated and
psychiatry consult was requested. A psych consult by Dr. Hyatt from 08/30/16 was reviewed and Mr. Walsh's friend from [facility] who sees him weekly was present and contributed information. He continues to have very elevated BP and pulse and is not
agitated so this is not induced by his emotional state.
His friend indicates that for the past several weeks his speech and mentation has declined, but when I interviewed him he seemed much better to the friend than he has been in weeks. Mr. Walsh reports having longstanding depression and past
records indicate he has had longstanding treatment with antidepressants. However, he does not report now being particularly depressed and denies active suicidal ideation or a desire to be . He does not complain about the food at the hospital.
Unfortunately, he does not know the name of the doctor who prescribes his unusual combination of psych medications.
His current medications, which have been continued on this admission are: lamotrigine 200 mg., amitriptyline 25 mg. at bedtime, aripiprazole (Abilify) 7 mg. in the morning; bupropion (Wellbutrin XL) 450 mg. in the morning and venlafaxine 100 mg.
in the morning.
Labs on admission showed WBC 26.4, ANC 23.6; Ur WBC >100; many bacteria. WBC has come down. However, his HR is 158 now and systolic BP >200.
FH: A female cousin had depression, but not hospitalized or suicidal. . Has a son in [place] and a daugher in [place]; no grandchildren. No family history of serious mental illness.
SH: Born in [place], lived in [facility]. Had also lived in [place]. Drank wine, perhaps excessively, in the past. No drug abuse. After a fall, possibly 5 years ago, his son arranged for him to be in a nursing
home. He likes that he is around other people as opposed to the isolation of living in an apartment. He watches [employer] games, plays cards, etc. 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
MSE: Elderly man with flexed right arm resting in bed with minimal restlessness. Speech is characterized by mild articulation problems but significant aphasia although often recognizes when he is struggling to use the word he wants. Pleasant and
engageable; not tearful. He refused a blood draw initially, but was easily convinced to cooperate which he did. Denies auditory hallucinations and does not appear to be responding to internal stimuli. Denies suicidal ideation. Memory impaired.
I do not think his mental state is driving his malignant hypetension and tachycadia. However, his psychiatric medications could be contributing -- i.e. bupropion and venlafaxine both can increase BP and pulse. He is on two serotonergic
medications (venlafaxine and amitriptyline) and lamotrigine can theoretically increase serotonin levels as well.
Diagnosis: Delirium with agitation due to infection (toxic metabolic encephalopathy), resolving
Dysthymic Disorder (Persistent Depressive Disorder)
Aphasia and cognitive problems secondary to three old strokes
Plan: Residents are attending to his cardiovascular needs and transferring to IMU
Stop Wellbutrin (bupropion), Stop Effexor (venlafaxine), stop Elavil (amitriptyline).
Give a one time dose of Abilify (aripiprazole) 10 mg. now as he refused morning 7 mg. dose and raise scheduled dose to 10 mg. each morning.
Continue Lamictal (lamotrigine)
May be subject to mild withdrawal from venlafaxine, but this is not medically dangerous and will not cause hypertension or tachycardia.
Psychiatry will follow
[2024-04-17] MEDS: ROCEPHIN 1000 MG IV (13:15)
[2024-04-17] MEDS: STERILE WATER FOR INJECTION 10 ML IV (13:15)
[2024-04-17 13:27] LABS: ALT (SGPT) 20 U/L (0-50); AST (SGOT) 28 U/L (17-59); Albumin 4.8 g/dl (3.5-5.0); Alkaline Phosphatase 124 U/L (38-126); Blood Urea Nitrogen 5 mg/dl (9-20); Calcium 9.5 mg/dl (8.4-10.2); Carbon Dioxide 25 mmol/L (22-30); Chloride 100 mmol/L (98-107); Estimated Creatinine Clearance 108 ml/min; Glucose 121 mg/dl (70-99); Potassium 4.2 mmol/L (3.5-5.1); Sodium 141 mmol/L (135-145); Total Bilirubin 0.9 mg/dl (0.2-1.3); Total Protein 7.7 g/dl (6.3-8.2); eGFR > 60.00
[2024-04-17] MEDS: ABILIFY 10 MG PO (13:34)
[2024-04-17] MEDS: LOPRESSOR 10 MG IV ×2 (13:35→13:58)
--- NOTE | 2024-04-17 14:10 | PTCARENOTE ---
Manual BP obtained at 1330 BP 202/116 HR 159. MD at bedside. x2 doses IV lopressor 5 mg given per MD order.
[2024-04-17 14:43] LABS: Troponin I 0.019 ng/ml
--- NOTE | 2024-04-17 15:00 | W.PN.UPDATE ---
Addendum entered and electronically signed by Khloe Guzman MD 04/17/24 18:41:
Called to see patient for elevated blood pressures, continued agitation, continued increased heart rate. Discussed case with Mitesh Choudhary, Katrina, Anupama. Also asked psychiatry to see. Concern was for the possibility of serotonin
syndrome (patient taking Wellbutrin, Lamictal, Abilify, Effexor) with paranoia today and refusing to take medications. Rey catheter was removed today. Was placed 2 days ago for urinary retention. Patient is being treated for urinary tract
infection.
Since blood pressures were exceedingly high, hypertensive emergency was also in the differential. Plans were made to transfer the patient to ICU for Cardene drip. Lopressor 10 mg x 2 IV was given individually as well as earlier administration of
IV Ativan of 0.25 and hydralazine IV.
On exam, patient was clammy, cold, tachycardic, afebrile, with clonus/myoclonus/muscle twitching of the left leg. No abdominal pain to palpation.
Patient was found to be retaining urine, yet again, requiring Rey catheter placement. 900 mL of urine was removed. Agitation and elevated pressures could have been related to urinary discomfort due to retention. Blood pressures have dropped now
to 144/78 with heart rate of 109.
CAT scan head as well as abdomen and pelvis (for incontinence of loose bowels) were ordered but not yet performed.
Given significant improvement with Rey catheter placement, serotonin syndrome seems less likely. Would cancel transfer to ICU and monitor on the floor. If, however, blood pressure starts to rise or heart rate starts to rise again; would not
hesitate to transfer back to ICU for Cardene drip. Would cancel CAT scan of the head. If patient continues to be agitated and paranoid, then would consider checking scan at that time.
Original Note:
Update Note
Progress Note Update
Contacted for elevated blood pressure 216/136 and tachycardia into the 150s. Confirmed with manual bp. Patient was reporting palpitations. Patient was given 5mg hydralazine with no improvement in Bps. A stat ecg was ordered which showed sinus
tachycardia w/ frequent PVCs. Stat troponins were ordered.
Throughout patient denied any chest pain. He was awake and talking, though his affect was still agitated and a bit paranoid. He was initially cold and clammy, before he became diaphoretic. He was given an additional 20mg IV Lopressor with
improvement in HR to the 110s, but bps remained in the 180s/120s. He was afebrile at 97.6. HR was tachycardic w/ rr. Glucose was 116.
Given hypertensive emergency refractory to lopressor/hydralazine and concern for serotonin syndrome given patient's significant polypharmacy (Venlafaxine, Welbutrin, Lamictal) and sx of agitation, worsening tremors from baseline, tachycardia,
hypertension, the decision was made to upgrade him to ICU for cardene ggt.
[employer] was notified. Cardiology/neurology consulted.
--- NOTE | 2024-04-17 15:00 | CON.NEURO ---
Consultation
Order
Date of Consultation: 04/17/24
Requesting Provider: Deepak Cifuentes MD, Resident
Reason for Consult: encephalopathy, suspected serotonin syndrome
Neurology Consultation Note.
HPI: This is a 73-year-old RH man who presented to [facility] on 04/14/2024 with UTI. Neurology consultation was requested for an evaluation of suspected serotonin syndrome.
Mr. Walsh endorses painful urinary urgency. He reports of recently started to discontinued medications. He is unsure what was he prescribed Lamictal or Abilify for.
Based on EMR the patient is on Abilify, amitriptyline, Lamictal and Wellbutrin.
Abilify was increased from 7 mg daily to 10 mg during the hospitalization.
Review of VS was notable for hypertension up to 228/118 and tachycardia up to 159, normal temperature.
EKG: sinus tachycardia, QTc Int : 425 ms
PDMP: No recently prescribed medications
CT head wo contrast-chronic left IMPROVEMENT INTERN as well as left basal ganglia infarcts, moderate atrophy
UA culture�Enterococcus species
Labs: WBC 26.4�17.0�11.2, normal sodium, GFR, glucose�59�121, hemoglobin A1c�5.9 (10.8 in 2016, 2020)
MAR: Lorazepam 0.25 mg given on 04/17/24 12:17.
PMH: L MCA stroke(2013), HTN, DLP, DM, GERD, EtOH addiction, MDD, AIDAN, IBS, RLE DVT, ambulatory dysfunction.
PSH: left subacrominal decompression, bilateral bunionectomy, R TKA
SH: Lives alone, ambulates with a wheelchair/cane; retired from [employer], non-smoker;
FH: No family history of tremor, mother lung cancer, father�coronary artery disease.
All: Influenza vaccine,
ROS: Constitutional: Negative. Negative for chills, fever and unexpected weight change.
HENT: Positive for hearing impairment
Eyes: Negative. Negative for photophobia, pain and visual disturbance.
Respiratory: Negative for cough, choking and shortness of breath.
Cardiovascular: Negative for chest pain, palpitations and leg swelling.
Gastrointestinal: Negative for abdominal pain and vomiting.
Endocrine: Negative. Negative for cold intolerance.
Genitourinary: Positive for urinary urgency
Musculoskeletal: Negative for back pain, gait problem, neck pain and neck stiffness.
Skin: Positive for rash
Allergic/Immunologic: Negative. Negative for immunocompromised state.
Neurological: Positive for hand tremor, confusion
General: Well developed. Jittery. Diaphoretic
Cardio: Tachycardic extremities are without cyanosis or edema.
Neuro:
Mental Status: Alert, oriented to person, place, and date. Impaired attention and preserved comprehension. Good fund of knowledge. Follows complex requests across the midline. Comprehension, naming, and repetition intact.
Cranial Nerves: Pupils are equally round and reactive to light. EOMs full. Visual mesa full to confrontation. No ptosis. No nystagmus. V1-V3 intact to light touch and pinprick bilaterally, symmetric. Mild R facial weakness. Impaired
hearing AU. The palate elevated well. SCMs and traps 5/5. Tongue midline. No dysarthria.
Motor: Increased motor tone right more than the left. Spastic hemiparesis(arm>leg)
Reflexes: 3+, limited clonus exam due to increased motor tone. Negative Christ's on the left.
Coordination: Action hand and leg tremor.
Gait: deferred
Assessment and Plan:
I. Serotonin syndrome based on Rudy Criteria.
II. Parkinsonism, likely vascular. Chronic L IMPROVEMENT INTERN/MCA infarcts.
III. Autonomic dysfunction
IV. history of EtOH addiction
V. Mixed encephalopathy.
-ICU transfer
-maintain the oxygen saturation >94 %
-If significant agitation�use Lorazepam 2-4 mg IV as needed
-Continue thiamine
-Nicardipine for autonomic dysfunction, longer acting agents as propranolol should be avoided.
-If benzodiazepines and supportive care fail to improve agitation and correct vital signs, start-�cyproheptadine
-Please check CK, urine tox, Lamictal level, TFTs
-Continue Lipitor 80 mg nightly and aspirin 81 mg daily
-Psychiatry consult
-D/c Abilify/Lamictal/Wellbutrin.
-DVT prophylaxis
I personally reviewed all radiology and labs along with past medical records pertinent to current medical problems. Total time spent in patient care is 60 minutes.
Thank you for allowing us to participate in the care of this patient. We will continue to follow. Please do not hesitate to contact us with any questions or concerns.
Subjective/Objective
Subjective Data
Date of Service: April 17, 2024
Objective Data
Vital Signs
Temp Pulse Resp BP Pulse Ox
36.4 C 116 24 212/116 97
04/17/24 13:45 04/17/24 13:58 04/17/24 13:45 04/17/24 14:39 04/17/24 13:45
Lab Results
04/17/24 12:52
04/17/24 12:52
Sodium 141 mmol/L (135-145) 04/17/24 12:52
Potassium 4.2 mmol/L (3.5-5.1) 04/17/24 12:52
BUN 5 mg/dl (9-20) L 04/17/24 12:52
Glucose 121 mg/dl (70-99) H 04/17/24 12:52
Calcium 9.5 mg/dl (8.4-10.2) 04/17/24 12:52
Patient Allergies
influenza virus vaccine, specific Allergy (Unknown, Verified 04/14/24 14:02)
made him sick and got the flu
STERI STRIPS Allergy (Unknown, Uncoded 04/14/24 14:02)
Unknown
steri strips Allergy (Uncoded 04/14/24 14:02)
Rash
Medications
-
Active Medications
Generic Name Dose Route Start Last Admin
Trade Name Freq PRN Reason Stop Dose Admin
Acetaminophen 650 mg 04/14/24 19:52
Acetaminophen 325 Mg Tablet PO 05/12/24 19:51
Q4HPRN PRN
mild pain/STONE/temp> 100.4F
Acetaminophen 650 mg 04/14/24 19:52
Acetaminophen 650 Mg Rectal Suppository RECTAL 05/12/24 19:51
Q4HPRN PRN
mild pain/STONE/temp> 100.4F
Aripiprazole 10 mg 04/18/24 08:00
Aripiprazole 10 Mg Tablet PO 05/16/24 07:59
DAILY MARQUES
Aspirin 300 mg 04/14/24 19:52
Aspirin 300 Mg Rectal Suppository RECTAL 05/12/24 19:51
DAILYPRN PRN
cannot take PO
Aspirin 81 mg 04/15/24 08:00 04/17/24 08:38
Aspirin 81 Mg (Enteric Coated) Tablet PO 05/13/24 07:59 Not Given
DAILY MARQUES
Atorvastatin Calcium 80 mg 04/15/24 08:00 04/17/24 08:38
Atorvastatin (Lipitor) 80 Mg Tablet PO 05/13/24 07:59 Not Given
DAILY MARQUES
Bisacodyl 10 mg 04/14/24 19:52
Bisacodyl 10 Mg Rectal Suppository RECTAL 05/12/24 19:51
[id number] PRN
constipation
Ceftriaxone Sodium 1,000 mg 04/15/24 14:00 04/17/24 13:15
Ceftriaxone 1000 Mg / 10 Ml Vial IV 1,000 mg
Q24H MARQUES Administration
Cyanocobalamin 1,000 mcg 04/17/24 08:00 04/17/24 08:38
Cyanocobalamin 1,000 Mcg Tablet PO 05/15/24 07:59 Not Given
DAILY MARQUES
Dextrose 12.5 grams 04/14/24 19:52
Dextrose 50% (0.5 Grams/Ml) 50 Ml Syringe IV 05/12/24 19:51
[id number] PRN
hypoglycemia
Protocol
Enoxaparin Sodium 40 mg 04/14/24 19:52 04/16/24 17:01
Enoxaparin Sodium 40 Mg/0.4 Ml Syringe SC 05/12/24 19:51 40 mg
QPM MARQUES Administration
Hydralazine HCl 5 mg 04/17/24 08:48 04/17/24 11:53
Hydralazine 20 Mg/Ml Vial IV 05/15/24 08:47 5 mg
Q6HPRN PRN Administration
Hypertension
Insulin Glargine 8 units/ 0.08 mls @ 0 mls/hr 04/15/24 22:00 04/16/24 21:32
Device SC 05/13/24 21:59 0.08 mls
HS MARQUES Administration
As Directed
Insulin Aspart 0 units 04/14/24 19:52 04/17/24 12:51
Insulin Aspart Low Resistance 300 Units/3 Ml Pen.Injctr SC 05/12/24 19:51 Not Given
AC MARQUES
Protocol
Lamotrigine 200 mg 04/15/24 08:00 04/17/24 08:38
Lamotrigine 100 Mg Tablet PO 05/13/24 07:59 Not Given
DAILY MARQUES
Lisinopril 40 mg 04/16/24 08:00 04/17/24 08:12
Lisinopril 20 Mg Tablet PO 05/14/24 07:59 40 mg
DAILY MARQUES Administration
Melatonin 5 mg 04/16/24 22:00
Melatonin 5 Mg Tablet PO 05/14/24 21:59
HSPRN PRN
sleep
Meloxicam 7.5 mg 04/17/24 08:00 04/17/24 08:38
Meloxicam (Mobic) 7.5 Mg Tablet PO 05/15/24 07:59 Not Given
DAILY MARQUES
Polyethylene Glycol 17 grams 04/14/24 19:52
Polyethylene Glycol Powder 17 Grams Packet PO 05/12/24 19:51
DAILYPRN PRN
constipation
Senna/Docusate Sodium 1 tablet 04/14/24 19:52
Docusate W/Senna (Pooja-Colace) Tablet PO 05/12/24 19:51
BIDPRN PRN
constipation
Sodium Chloride 0 flush 04/14/24 21:00
Sodium Chloride 0.9% (Flush) Syringe IV 05/12/24 20:59
PER PROTOCOL MARQUES
Sterile Water 10 ml 04/15/24 14:00 04/17/24 13:15
Sterile Water For Injection 10 Ml Vial IV 05/13/24 13:59 10 ml
Q24H MARQUES Administration
Tamsulosin HCl 0.4 mg 04/16/24 08:00 04/17/24 08:38
Tamsulosin 0.4 Mg Capsule PO 05/14/24 07:59 Not Given
DAILY MARQUES
Thiamine HCl 100 mg 04/17/24 08:00 04/17/24 08:38
Thiamine 100 Mg Tablet PO 05/15/24 07:59 Not Given
DAILY MARQUES
Home Medications
�Medication �Instructions �Recorded
atorvastatin 40 mg tablet 80 mg PO DAILY High cholesterol 08/29/16
lamotrigine 200 mg tablet 200 mg PO DAILY Mental 09/10/20
Health/Anxiety
lisinopril 40 mg tablet 40 mg PO DAILY Blood pressure 09/10/20
aspirin 81 mg tablet,delayed 81 mg PO DAILY 09/13/20
release
melatonin 5 mg tablet 5 mg PO HSPRN PRN sleep 09/26/20
Cyanacobalamin 1,000 mcg PO DAILY Supplement 04/14/24
amitriptyline 25 mg tablet 25 mg PO HS Sleep 04/14/24
aripiprazole 5 mg tablet (Abilify) 7 mg PO DAILY Blood Clot 04/14/24
Prevention/Tx
bupropion HCl 300 mg 24 hr tablet, 450 mg PO DAILY Mental 04/14/24
extended release (Wellbutrin XL) Health/Anxiety
insulin glargine 100 unit/mL (3 12 unit SC QPM Diabetes 04/14/24
mL) subcutaneous pen (Basaglar
KwikPen U-100 Insulin)
meloxicam 7.5 mg tablet 7.5 mg PO DAILY Sleep 04/14/24
sitagliptin phosphate 50 1 tab PO BID Diabetes 04/14/24
mg-metformin 500 mg tablet
(Janumet)
venlafaxine 100 mg tablet 100 mg PO DAILY Mental 04/14/24
Health/Anxiety
thiamine HCl (vitamin B1) 100 mg 100 mg PO DAILY Supplement 04/15/24
tablet
Vital Signs and Labs
-
Vital Signs and Labs:
Vital Signs
Temp Pulse Resp BP Pulse Ox
36.4 C 116 24 212/116 97
04/17/24 13:45 04/17/24 13:58 04/17/24 13:45 04/17/24 14:39 04/17/24 13:45
Lab Results
04/17/24 12:52
04/17/24 12:52
Sodium 141 mmol/L (135-145) 04/17/24 12:52
Potassium 4.2 mmol/L (3.5-5.1) 04/17/24 12:52
BUN 5 mg/dl (9-20) L 04/17/24 12:52
Glucose 121 mg/dl (70-99) H 04/17/24 12:52
Calcium 9.5 mg/dl (8.4-10.2) 04/17/24 12:52
Medications
-
Medications:
Generic Name Dose Route Start Last Admin
Trade Name Freq PRN Reason Stop Dose Admin
Acetaminophen 650 mg 04/14/24 19:52
Acetaminophen 325 Mg Tablet PO 05/12/24 19:51
Q4HPRN PRN
mild pain/STONE/temp> 100.4F
Acetaminophen 650 mg 04/14/24 19:52
Acetaminophen 650 Mg Rectal Suppository RECTAL 05/12/24 19:51
Q4HPRN PRN
mild pain/STONE/temp> 100.4F
Aripiprazole 10 mg 04/18/24 08:00
Aripiprazole 10 Mg Tablet PO 05/16/24 07:59
DAILY MARQUES
Aspirin 300 mg 04/14/24 19:52
Aspirin 300 Mg Rectal Suppository RECTAL 05/12/24 19:51
DAILYPRN PRN
cannot take PO
Aspirin 81 mg 04/15/24 08:00 04/17/24 08:38
Aspirin 81 Mg (Enteric Coated) Tablet PO 05/13/24 07:59 Not Given
DAILY MARQUES
Atorvastatin Calcium 80 mg 04/15/24 08:00 04/17/24 08:38
Atorvastatin (Lipitor) 80 Mg Tablet PO 05/13/24 07:59 Not Given
DAILY MARQUES
Bisacodyl 10 mg 04/14/24 19:52
Bisacodyl 10 Mg Rectal Suppository RECTAL 05/12/24 19:51
[id number] PRN
constipation
Ceftriaxone Sodium 1,000 mg 04/15/24 14:00 04/17/24 13:15
Ceftriaxone 1000 Mg / 10 Ml Vial IV 1,000 mg
Q24H MARQUES Administration
Cyanocobalamin 1,000 mcg 04/17/24 08:00 04/17/24 08:38
Cyanocobalamin 1,000 Mcg Tablet PO 05/15/24 07:59 Not Given
DAILY MARQUES
Dextrose 12.5 grams 04/14/24 19:52
Dextrose 50% (0.5 Grams/Ml) 50 Ml Syringe IV 05/12/24 19:51
[id number] PRN
hypoglycemia
Protocol
Enoxaparin Sodium 40 mg 04/14/24 19:52 04/16/24 17:01
Enoxaparin Sodium 40 Mg/0.4 Ml Syringe SC 05/12/24 19:51 40 mg
QPM MARQUES Administration
Hydralazine HCl 5 mg 04/17/24 08:48 04/17/24 11:53
Hydralazine 20 Mg/Ml Vial IV 05/15/24 08:47 5 mg
Q6HPRN PRN Administration
Hypertension
Insulin Glargine 8 units/ 0.08 mls @ 0 mls/hr 04/15/24 22:00 04/16/24 21:32
Device SC 05/13/24 21:59 0.08 mls
HS MARQUES Administration
As Directed
Insulin Aspart 0 units 04/14/24 19:52 04/17/24 12:51
Insulin Aspart Low Resistance 300 Units/3 Ml Pen.Injctr SC 05/12/24 19:51 Not Given
AC MARQUES
Protocol
Lamotrigine 200 mg 04/15/24 08:00 04/17/24 08:38
Lamotrigine 100 Mg Tablet PO 05/13/24 07:59 Not Given
DAILY MARQUES
Lisinopril 40 mg 04/16/24 08:00 04/17/24 08:12
Lisinopril 20 Mg Tablet PO 05/14/24 07:59 40 mg
DAILY MARQUES Administration
Melatonin 5 mg 04/16/24 22:00
Melatonin 5 Mg Tablet PO 05/14/24 21:59
HSPRN PRN
sleep
Meloxicam 7.5 mg 04/17/24 08:00 04/17/24 08:38
Meloxicam (Mobic) 7.5 Mg Tablet PO 05/15/24 07:59 Not Given
DAILY MARQUES
Polyethylene Glycol 17 grams 04/14/24 19:52
Polyethylene Glycol Powder 17 Grams Packet PO 05/12/24 19:51
DAILYPRN PRN
constipation
Senna/Docusate Sodium 1 tablet 04/14/24 19:52
Docusate W/Senna (Pooja-Colace) Tablet PO 05/12/24 19:51
BIDPRN PRN
constipation
Sodium Chloride 0 flush 04/14/24 21:00
Sodium Chloride 0.9% (Flush) Syringe IV 05/12/24 20:59
PER PROTOCOL MARQUES
Sterile Water 10 ml 04/15/24 14:00 04/17/24 13:15
Sterile Water For Injection 10 Ml Vial IV 05/13/24 13:59 10 ml
Q24H MARQUES Administration
Tamsulosin HCl 0.4 mg 04/16/24 08:00 04/17/24 08:38
Tamsulosin 0.4 Mg Capsule PO 05/14/24 07:59 Not Given
DAILY MARQUES
Thiamine HCl 100 mg 04/17/24 08:00 04/17/24 08:38
Thiamine 100 Mg Tablet PO 05/15/24 07:59 Not Given
DAILY MARQUES
Home Medications
-
Home Medications
atorvastatin 40 mg tablet 80 mg PO DAILY High cholesterol 08/29/16
lamotrigine 200 mg tablet 200 mg PO DAILY Mental Health/Anxiety 09/10/20
lisinopril 40 mg tablet 40 mg PO DAILY Blood pressure 09/10/20
aspirin 81 mg tablet,delayed release 81 mg PO DAILY 09/13/20
melatonin 5 mg tablet 5 mg PO HSPRN PRN sleep 09/26/20
Cyanacobalamin 1,000 mcg PO DAILY Supplement 04/14/24
amitriptyline 25 mg tablet 25 mg PO HS Sleep 04/14/24
aripiprazole 5 mg tablet (Abilify) 7 mg PO DAILY Blood Clot Prevention/Tx 04/14/24
bupropion HCl 300 mg 24 hr tablet, extended release (Wellbutrin XL) 450 mg PO DAILY Mental Health/Anxiety 04/14/24
insulin glargine 100 unit/mL (3 mL) subcutaneous pen (Basaglar KwikPen U-100 Insulin) 12 unit SC QPM Diabetes 04/14/24
meloxicam 7.5 mg tablet 7.5 mg PO DAILY Sleep 04/14/24
sitagliptin phosphate 50 mg-metformin 500 mg tablet (Janumet) 1 tab PO BID Diabetes 04/14/24
venlafaxine 100 mg tablet 100 mg PO DAILY Mental Health/Anxiety 04/14/24
thiamine HCl (vitamin B1) 100 mg tablet 100 mg PO DAILY Supplement 04/15/24
--- NOTE | 2024-04-17 15:08 | CON.CAR ---
Consultation
Consultation Request
Date/Time Consultation Requested: 04/17/2024 at 2:00 PM
Date/Time Consultation Performed: 04/17/2024 at 3:00 PM
Requesting Provider: Dr Sagastume
Performing Provider: Dr. Karla Lopez
Reason for Consultation: Hypertension
Medical History
-
Chief Complaint: Hypertension
History of Present Illness:
Consult has been requested for uncontrolled hypertension. I reviewed all available records. Patient was admitted for sepsis and UTI currently on antibiotics. He has history of hypertension. This morning he was agitated and confused and refused
all of his medicines and blood pressures have been persistently at times in the 200/130 range.
He is being treated for UTI and it appears that this morning he also refused antibiotics.
He was seen by psychiatry and feels to have delirium with agitation and TME. He has expressive aphasia and cognitive dysfunction secondary to prior strokes.
He denies chest pain, palpitations and dizziness. I explained to him the importance of taking his medications. He is most concerned about urinary and penile pain which I told him I would pass on to nursing and defer to hospitalist service.
In addition he has insulin-dependent type 2 diabetes, hyperlipidemia, thrombocytosis, history of CVA with right-sided hemiparesis and residual left-sided weakness unable to ambulate.
Past Medical History
Past Medical History: CVA, HTN, Hypercholesterolemia, NIDDM and Psychiatric
Social History
Tobacco: Non-Smoker
Living: Alone
Family History
Family History: Reviewed & Not Pertinent
Allergies / Home Medications
Allergy/AdvReac Type Severity Reaction Status Date / Time
influenza virus vaccine, Allergy Unknown made him Verified 04/14/24 14:02
specific sick and
got the flu
STERI STRIPS Allergy Unknown Unknown Uncoded 04/14/24 14:02
steri strips Allergy Rash Uncoded 04/14/24 14:02
�Medication �Instructions �Recorded �Confirmed �Type
atorvastatin 40 mg tablet 80 mg PO DAILY High cholesterol 08/29/16 04/14/24 History
lamotrigine 200 mg tablet 200 mg PO DAILY Mental 09/10/20 04/14/24 History
Health/Anxiety
lisinopril 40 mg tablet 40 mg PO DAILY Blood pressure 09/10/20 04/14/24 History
aspirin 81 mg tablet,delayed 81 mg PO DAILY 09/13/20 04/14/24 Rx
release
melatonin 5 mg tablet 5 mg PO HSPRN PRN sleep 09/26/20 04/14/24 Rx
Cyanacobalamin 1,000 mcg PO DAILY Supplement 04/14/24 04/14/24 History
amitriptyline 25 mg tablet 25 mg PO HS Sleep 04/14/24 04/14/24 History
aripiprazole 5 mg tablet (Abilify) 7 mg PO DAILY Blood Clot 04/14/24 04/14/24 History
Prevention/Tx
bupropion HCl 300 mg 24 hr tablet, 450 mg PO DAILY Mental 04/14/24 04/14/24 History
extended release (Wellbutrin XL) Health/Anxiety
insulin glargine 100 unit/mL (3 12 unit SC QPM Diabetes 04/14/24 04/14/24 History
mL) subcutaneous pen (Basaglar
KwikPen U-100 Insulin)
meloxicam 7.5 mg tablet 7.5 mg PO DAILY Sleep 04/14/24 04/14/24 History
sitagliptin phosphate 50 1 tab PO BID Diabetes 04/14/24 04/14/24 History
mg-metformin 500 mg tablet
(Janumet)
venlafaxine 100 mg tablet 100 mg PO DAILY Mental 04/14/24 04/14/24 History
Health/Anxiety
thiamine HCl (vitamin B1) 100 mg 100 mg PO DAILY Supplement 04/15/24 04/14/24 History
tablet
Review of Systems
-
: Dysuria and Other (Penile pain)
Physical Exam
Vital Signs
Temp Pulse Resp BP Pulse Ox
97.6 F 116 24 212/116 97
04/17/24 13:45 04/17/24 13:58 04/17/24 13:45 04/17/24 14:39 04/17/24 13:45
Lab Results
04/17/24 12:52
04/17/24 12:52
Troponin I 0.019 ng/ml 04/17/24 14:07
General: Mildly agitated man
Heart: Regular but tacky
Lungs: Coarse anterior breath sounds
Abdomen: Normal bowel sounds, soft, non-tender, non-distended.
Extremities: No clubbing, cyanosis or edema bilaterally.
Neuro: Mildly agitated right arm contracted
Impression / Plan
-
Impression:
Uncontrolled hypertension on chronic hypertension
Sepsis secondary to UTI
Delirium with TME and agitation
History of stroke x 3-old strokes noted on recent CT scan this admission
Cognitive dysfunction related to stroke
Expressive aphasia
Paralysis and weakness
Hyperlipidemia
Diabetes
Thrombocytosis
Echo 03/31/2013 ejection fraction 55 to 60%. No significant valve disease.
Plan:
Main complaint currently is of penile pain. He has UTI. Defer management of pain to primary service.
Continue treatment of UTI.
TME related to UTI for which he did decline antibiotics at 1 point
Agitation has been up and down and he has refused medicines. He has been seen by psychiatry who believes agitation is TME and metabolic in nature. We had a discussion that given hypertension which is uncontrolled and his intermittent refusal to
take medications that he is at risk for another stroke. He told me that that frightened him and he would take his medications.
Continue lisinopril
Add amlodipine 5 mg daily
5 mg to 10 mg hydralazine as needed and give dose now.
Goal blood pressure tonight would be 170s and then continue to lower goal as tolerates
Echo in the morning
TSH added on
EKG with sinus tachycardia
No chest discomfort or EKG changes no need to further trend troponins unless new symptoms develop.
If blood pressure does not quickly get under control on good medication treatment would consider evaluation for secondary causes.
Continue risk factor modification post prior strokes
Continue antiplatelet treatment
Continue lipid-lowering
EKG with sinus tachycardia
Likely in part related to agitation
Can eventually consider beta-josephine if persists
Check TSH
Data Reviewed
-
EKG: Tracing Personally Visualized and interpreted
Radiology: Image Personally Visualized and interpreted and Report Reviewed by me
Medical Tests (Nuc Med, Echo etc): Report Reviewed by me
Labs: Labs Reviewed by me
Old Records: Reviewed
[2024-04-17] MEDS: NORVASC 5 MG PO (16:49)
--- NOTE | 2024-04-17 17:03 | CON.INTV ---
Consultation
Consultation Request
Date/Time Consultation Requested: 04/17
Date/Time Consultation Performed: 04/17
Reason for Consultation: critical care
Medical History
-
History of Present Illness:
History obtained from the patient, reviewing records. patient is a 73-year-old male who was admitted 03/18/24 with history of right-sided residual weakness, history of stroke, hypertension, hyperlipidemia, custodial resident presented with
confusion. Records suggest that he has been declining over the last few years, wheelchair-bound. At that time, afebrile, pulse 90, breathing at 16, blood pressure 139/76, 94%. Hospital course was reviewed. Patient was treated for UTI, sepsis,
leukocytosis, ceftriaxone. Patient also with suspicion for aspiration, dysphagia, aspiration precautions. At baseline he has an expressive aphasia, CT imaging revealed chronic ischemic changes. Patient developed hypertension, agitation,
tachycardia received Ativan, hydralazine. Systolic pressure greater than 200s. Patient being transferred to ICU for blood pressure management
Presently he does have an expressive aphasia. Word finding is a difficulty during history acquisition. Otherwise he appears comfortable. Last blood pressure 170/110's
Most history was obtained from review the records as patient has issues with word finding and answering questions
.
PMH: hypertension, hyperlipidemia, history of stroke with right-sided hemiparesis, expressive aphasia, diabetes, dysphagia/aspiration syndrome, depression/anxiety, custodial resident
Past Medical History
Past Medical History: None ( see above)
Past Surgical History: None ( see above)
Social History
Tobacco: Non-smoker
Alcohol: None
Drug: None
Living: Long Term
Family History
Family History: Unable to Obtain
Allergies / Home Medications
Allergies
Allergy/AdvReac Type Severity Reaction Status Date / Time
influenza virus vaccine, Allergy Unknown made him Verified 04/14/24 14:02
specific sick and
got the flu
STERI STRIPS Allergy Unknown Unknown Uncoded 04/14/24 14:02
steri strips Allergy Rash Uncoded 04/14/24 14:02
Home Medications
�Medication �Instructions �Recorded �Confirmed �Last Taken �Type
atorvastatin 40 mg tablet 80 mg PO DAILY High cholesterol 08/29/16 04/14/24 09/08/20 08:00 History
lamotrigine 200 mg tablet 200 mg PO DAILY Mental 09/10/20 04/14/24 09/08/20 History
Health/Anxiety
lisinopril 40 mg tablet 40 mg PO DAILY Blood pressure 09/10/20 04/14/24 09/08/20 08:00 History
aspirin 81 mg tablet,delayed 81 mg PO DAILY 09/13/20 04/14/24 Unknown Rx
release
melatonin 5 mg tablet 5 mg PO HSPRN PRN sleep 09/26/20 04/14/24 Unknown Rx
Cyanacobalamin 1,000 mcg PO DAILY Supplement 04/14/24 04/14/24 Unknown History
amitriptyline 25 mg tablet 25 mg PO HS Sleep 04/14/24 04/14/24 Unknown History
aripiprazole 5 mg tablet (Abilify) 7 mg PO DAILY Blood Clot 04/14/24 04/14/24 Unknown History
Prevention/Tx
bupropion HCl 300 mg 24 hr tablet, 450 mg PO DAILY Mental 04/14/24 04/14/24 Unknown History
extended release (Wellbutrin XL) Health/Anxiety
insulin glargine 100 unit/mL (3 12 unit SC QPM Diabetes 04/14/24 04/14/24 Unknown History
mL) subcutaneous pen (Basaglar
KwikPen U-100 Insulin)
meloxicam 7.5 mg tablet 7.5 mg PO DAILY Sleep 04/14/24 04/14/24 Unknown History
sitagliptin phosphate 50 1 tab PO BID Diabetes 04/14/24 04/14/24 Unknown History
mg-metformin 500 mg tablet
(Janumet)
venlafaxine 100 mg tablet 100 mg PO DAILY Mental 04/14/24 04/14/24 Unknown History
Health/Anxiety
thiamine HCl (vitamin B1) 100 mg 100 mg PO DAILY Supplement 04/15/24 04/14/24 Unknown History
tablet
Review of Systems
-
All other systems: Negative unless noted
Vitals / Labs / Diagnostic Testing
Vital Signs
Temp Pulse Resp BP Pulse Ox
97.6 F 124 24 179/113 97
04/17/24 13:45 04/17/24 16:02 04/17/24 13:45 04/17/24 16:02 04/17/24 13:45
Lab Data
04/17/24 12:52
04/17/24 12:52
Microbiology
04/14/24 16:30 Blood/Venous Blood Culture - Preliminary
No Growth in 72 hours- Final report to follow
04/14/24 16:30 Blood/Venous Blood Culture - Preliminary
No Growth in 72 hours- Final report to follow
04/17/24 12:45 Feces/Stool C. difficile GDH Antigen & Toxins - Final
Negative for toxigenic C.difficile
04/17/24 12:45 Feces/Stool - Final
Negative for Norovirus GI and GII.
04/14/24 12:57 Urine Urine Culture - Preliminary
Enterococcus species
04/15/24 04:13 Nose MRSA Screen - Final
No Methicillin Resistant Staphylococcus aureus isolated.
04/14/24 12:57 Nasal Swab Influenza Types A & B (CRISTIANO) - Final
Negative for Influenza A & B, NAAT
Negative results must be combined with clinical observations
and patient history.
Nucleic Acid Amplification test (NAAT)performed on the
[employer] platform.
Diagnostic Testing:
Physical Exam
-
HEENT: Normocephalic, Anicteric and Other ( on room air)
Cardiovascular: S1/S2, Regular Rhythm, Murmur (n), Rub (n) and Peripheral Edema (tr)
Respiratory: Wheeze (n), Rales (n), Rhonchi (n) and Non-Labored Respirations
GI: Soft, Non Distended and Non Tender
Neurology: Awake, Alert, Oriented ( knows that he is in the hospital. When asked why he is here, he shakes his arm, sounds like he is trying to say agitation, but unclear) and No Motor Deficits ( right-sided hemiparesis)
Skin: Other ( no rash, no clubbing or cyanosis)
General: Comfortable
Assessment
-
73-year-old male with history of depression, anxiety, history of stroke with right-sided weakness, custodial resident who was admitted 04/14/24 for UTI, sepsis. Hospital stay significant for significant agitation, hypertension with systolic
pressure greater than 200s. Patient given hydralazine, Ativan, transferred to ICU for further management of hypertensive emergency
Poorly controlled blood pressure, systolic pressure greater than 200
Presently 170/1 tens
History of hypertension
Agitation, TME
History of stroke
Expressive aphasia, right-sided paresis, cognitive dysfunction
UTI, sepsis, improved
Hyperlipidemia
Diabetes
History of depression, anxiety
snf resident
DNR
Plan/recommendations
At this time, patient appears to be comfortable. He does have a mild expressive aphasia but presently is on room air. Last blood pressure 170/110
He denies headaches
His expressive aphasia makes it difficult to obtain complete history
Moving forward
Continue with current treatment regimen
Antihypertensive therapy will be modified
Hydralazine as needed
EKG consistent with sinus tachycardia
Patient denies any headaches, does not appear to have any neurological changes except agitation which seems to be improved at this time
Hopefully may not need Cardene drip
Cardiology has been consulted
Plan for echocardiogram in the morning
Aspiration precautions, head of bed elevated
Will follow while in ICU once transferred
[2024-04-17 17:14] LABS: Creatine Phosphokinase 134 U/L (55-170)
[2024-04-17 17:15] LABS: Ammonia 20 umol/L (9-30)
[2024-04-17 17:43] LABS: Glucose - Point of Care 133 mg/dl (70-99)
[2024-04-17] MEDS: LOVENOX 40 MG SC (18:19)
[2024-04-17] MEDS: TYLENOL 650 MG PO (18:19)
[2024-04-17 18:28] LABS: HDL Cholesterol 46 mg/dl; LDL Cholesterol, Calculated 70 mg/dl; Total Cholesterol 145 mg/dl (50-199); Triglyceride 149 mg/dl (10-149); Very Low Density Lipoprotein 29 mg/dl (0-30)
--- NOTE | 2024-04-17 18:30 | PTCARENOTE ---
Pt attempting to use urinal frequently throughout shift with minimal results but had been incontinent of large amount of urine since Rey removed at 0600. Pt did c/o painful penis this evening. Order placed for bladder scan which showed 843mL.
Rey catheter placed per MD orders which drained 800mL clear yellow urine. Insertion was difficult due to resistance but patient tolerated well and s/p insertion blood pressure dropped to 155/99 HR 109. Pt with less tremors and appears much more
comfortable.
[2024-04-17 18:59] LABS: TSH Reflex To Free T4 1.29 uIU/ml (0.47-4.68)
[2024-04-17 21:21] LABS: Glucose - Point of Care 137 mg/dl (70-99)
[2024-04-17] MEDS: LANTUS 0.08 UNITS SC (22:28)
[2024-04-18 03:36] VITALS: BP 153/84
[2024-04-18] MEDS: OMNIPAQUE 50 ML PO (06:14)
[2024-04-18 06:33] LABS: % Basophils 0.8 % (0-2); % Eosinophils 2.8 % (0-6); % Immature Granulocytes 0.5 % (0-0.5); % Lymphocytes 23.5 % (20.5-51.1); % Monocytes 7.6 % (1.7-9.3); % Neutrophils 64.8 % (42.2-75.2); Absolute Basophils 0.1 10^3/uL (0-0.2); Absolute Eosinophils 0.3 10^3/uL (0-0.7); Absolute Immature Granulocytes 0.1 10^3/uL (0-0.05); Absolute Lymphocytes 2.4 10^3/uL (1.2-3.4); Absolute Monocytes 0.8 10^3/uL (0.1-0.6); Absolute Neutrophils 6.7 10^3/uL (1.4-6.5); Hematocrit 42.4 % (39.0-52.0); Hemoglobin 14.1 g/dL (13.0-18.0); Mean Corp Hgb Conc. 33.3 g/dL (33.0-37.0); Mean Corpuscular Hgb 29.3 pg (27.0-31.0); Mean Corpuscular Volume 88.1 fL (80.0-94.0); Mean Platelet Volume 10.4 fL (7.4-10.4); Nucleated Red Blood Cells % 0 % (-); Platelet Count 312 10^3/uL (130-400); Red Blood Cell Count 4.81 10^6/uL (4.70-6.10); Red Cell Dist. Width 12.7 % (11.5-14.5); White Blood Cell Count 10.3 10^3/uL (4.8-10.8)
[2024-04-18 07:03] LABS: ALT (SGPT) 20 U/L (0-50); AST (SGOT) 27 U/L (17-59); Albumin 3.9 g/dl (3.5-5.0); Alkaline Phosphatase 96 U/L (38-126); Blood Urea Nitrogen 12 mg/dl (9-20); Calcium 8.9 mg/dl (8.4-10.2); Carbon Dioxide 33 mmol/L (22-30); Chloride 99 mmol/L (98-107); Creatine Phosphokinase 88 U/L (55-170); Estimated Creatinine Clearance 108 ml/min; Glucose 94 mg/dl (70-99); Potassium 3.3 mmol/L (3.5-5.1); Sodium 141 mmol/L (135-145); Total Bilirubin 0.7 mg/dl (0.2-1.3); Total Protein 6.7 g/dl (6.3-8.2); eGFR > 60.00
[2024-04-18 07:09] VITALS: BP 154/88
[2024-04-18 07:13] LABS: Amphetamines Negative (Negative); Barbiturates Negative (Negative); Benzodiazepines Positive (Negative); Buprenorphine Negative (Negative); Cocaine Negative (Negative); Marijuana Negative (Negative); Methadone Negative (Negative); Methamphetamines Negative (Negative); Opiates Negative (Negative); Phencyclidine Negative (Negative); Tricyclic Antidepressants Positive (Negative)
[2024-04-18 08:03] LABS: Fentanyl, Urine Negative (Negative)
[2024-04-18 08:09] LABS: Glucose - Point of Care 96 mg/dl (70-99)
[2024-04-18] MEDS: NOVOLOG FLEXPEN-LOW RESISTANCE SC ×2 (08:13→14:05)
--- NOTE | 2024-04-18 08:29 | W.PN.NEURO.1 ---
Today's Communication / Plan
-
Continue thiamine
Based on the unclear nature of the patient's recurrent urinary retention, consider urological evaluation as the patient has had an unremarkable MRI of the lumbar spine in August 2020
Continue atorvastatin 80 mg nightly
Continue aspirin 81 mg daily
Outpatient MRA head and neck due to the patient's multiple lacunar infarcts which are chronic in appearance
Neuro Assessment/Plan
Assessment
CT of head results: 'There is moderate diffuse cortical atrophy with nonspecific moderate white matter changes as described above.
There is old 4 cm left occipital infarct which was not present on the prior study
There is old 4 cm left parietal infarct which was present on the prior study
There is old 1.8 cm infarct in the left lentiform nucleus and centrum semiovale which was present on the previous examination'
Change in mental status including reduced verbal output. Possible serotonin syndrome, now thought to be less likely based on improvement of the patient's urinary retention leading to cognitive improvement and reduced agitation
Autonomic dysfunction, history of EtOH addiction, gait dysfunction= ? Paroxysmal Sympathetic Hypersensitivity
Plan
Continue thiamine
Based on the unclear nature of the patient's recurrent urinary retention, consider urological evaluation as the patient has had an unremarkable MRI of the lumbar spine in August 2020
Continue atorvastatin 80 mg nightly
Continue aspirin 81 mg daily
Outpatient MRA head and neck due to the patient's multiple lacunar infarcts which are chronic in appearance
Will follow peripherally
Subjective/Objective
Subjective Data
Date of Service: April 18, 2024
Objective Data
Vital Signs
Temp Pulse Resp BP Pulse Ox
36.3 C 81 16 154/8 99
04/18/24 07:09 04/18/24 07:09 04/18/24 07:09 04/18/24 07:09 04/18/24 07:09
Lab Results
04/18/24 05:58
04/18/24 05:58
Sodium 141 mmol/L (135-145) 04/18/24 05:58
Potassium 3.3 mmol/L (3.5-5.1) L 04/18/24 05:58
BUN 12 mg/dl (9-20) 04/18/24 05:58
Glucose 94 mg/dl (70-99) 04/18/24 05:58
Calcium 8.9 mg/dl (8.4-10.2) 04/18/24 05:58
LDL Cholesterol, Calc Cancelled 04/17/24 17:17
Ur Buprenorphine Negative (Negative) 04/18/24 06:48
Patient Allergies
influenza virus vaccine, specific Allergy (Unknown, Verified 04/14/24 14:02)
made him sick and got the flu
STERI STRIPS Allergy (Unknown, Uncoded 04/14/24 14:02)
Unknown
steri strips Allergy (Uncoded 04/14/24 14:02)
Rash
Data Reviewed
-
CT Head: Report Reviewed
Reviewed with: Physician
Old Records: Summarized
Past History
Past History
ED Past Medical History: CVA (Left MCA 2023), GERD, HTN, Hypercholesterolemia, Psychiatric and Other (DVT, IBS)
ED Past Surgical History: Orthopedic (Left subacromial decompression, right TKA) and Other (Bilateral bunionectomy)
Social History
Tobacco: Non-smoker
Alcohol: Chronic alcoholic
Drug: None
Personal:
Living: alone
Employment: Disabled
Family History
Family History: Other
Medications
-
Medications:
Generic Name Dose Route Start Last Admin
Trade Name Freq PRN Reason Stop Dose Admin
Acetaminophen 650 mg 04/14/24 19:52 04/17/24 18:19
Acetaminophen 325 Mg Tablet PO 05/12/24 19:51 650 mg
Q4HPRN PRN Administration
mild pain/STONE/temp> 100.4F
Acetaminophen 650 mg 04/14/24 19:52
Acetaminophen 650 Mg Rectal Suppository RECTAL 05/12/24 19:51
Q4HPRN PRN
mild pain/STONE/temp> 100.4F
Amlodipine Besylate 5 mg 04/17/24 17:00 04/17/24 16:49
Amlodipine 5 Mg Tablet PO 05/15/24 16:59 5 mg
DAILY MARQUES Administration
Aripiprazole 10 mg 04/18/24 08:00
Aripiprazole 10 Mg Tablet PO 05/16/24 07:59
DAILY MARQUES
Aspirin 300 mg 04/14/24 19:52
Aspirin 300 Mg Rectal Suppository RECTAL 05/12/24 19:51
DAILYPRN PRN
cannot take PO
Aspirin 81 mg 04/15/24 08:00 04/17/24 08:38
Aspirin 81 Mg (Enteric Coated) Tablet PO 05/13/24 07:59 Not Given
DAILY MARQUES
Atorvastatin Calcium 80 mg 04/15/24 08:00 04/17/24 08:38
Atorvastatin (Lipitor) 80 Mg Tablet PO 05/13/24 07:59 Not Given
DAILY MARQUES
Bisacodyl 10 mg 04/14/24 19:52
Bisacodyl 10 Mg Rectal Suppository RECTAL 05/12/24 19:51
[id number] PRN
constipation
Ceftriaxone Sodium 1,000 mg 04/15/24 14:00 04/17/24 13:15
Ceftriaxone 1000 Mg / 10 Ml Vial IV 1,000 mg
Q24H MARQUES Administration
Cyanocobalamin 1,000 mcg 04/17/24 08:00 04/17/24 08:38
Cyanocobalamin 1,000 Mcg Tablet PO 05/15/24 07:59 Not Given
DAILY MARQUES
Dextrose 12.5 grams 04/14/24 19:52
Dextrose 50% (0.5 Grams/Ml) 50 Ml Syringe IV 05/12/24 19:51
[id number] PRN
hypoglycemia
Protocol
Enoxaparin Sodium 40 mg 04/14/24 19:52 04/17/24 18:19
Enoxaparin Sodium 40 Mg/0.4 Ml Syringe SC 05/12/24 19:51 40 mg
QPM MARQUES Administration
Hydralazine HCl 5 mg 04/17/24 08:48 04/17/24 11:53
Hydralazine 20 Mg/Ml Vial IV 05/15/24 08:47 5 mg
Q6HPRN PRN Administration
Hypertension
Insulin Glargine 8 units/ 0.08 mls @ 0 mls/hr 04/15/24 22:00 04/17/24 22:28
Device SC 05/13/24 21:59 0.08 mls
HS MARQUES Administration
As Directed
Insulin Aspart 0 units 04/14/24 19:52 04/18/24 08:13
Insulin Aspart Low Resistance 300 Units/3 Ml Pen.Injctr SC 05/12/24 19:51 Not Given
AC MARQUES
Protocol
Lamotrigine 200 mg 04/15/24 08:00 04/17/24 08:38
Lamotrigine 100 Mg Tablet PO 05/13/24 07:59 Not Given
DAILY MARQUES
Lisinopril 40 mg 04/16/24 08:00 04/17/24 08:12
Lisinopril 20 Mg Tablet PO 05/14/24 07:59 40 mg
DAILY MARQUES Administration
Lorazepam 1 mg 04/17/24 18:14
Lorazepam 2 Mg/Ml Vial IV 05/15/24 18:13
Q8HPRN PRN
aggitation
Melatonin 5 mg 04/16/24 22:00
Melatonin 5 Mg Tablet PO 05/14/24 21:59
HSPRN PRN
sleep
Meloxicam 7.5 mg 04/17/24 08:00 04/17/24 08:38
Meloxicam (Mobic) 7.5 Mg Tablet PO 05/15/24 07:59 Not Given
DAILY MARQUES
Polyethylene Glycol 17 grams 04/14/24 19:52
Polyethylene Glycol Powder 17 Grams Packet PO 05/12/24 19:51
DAILYPRN PRN
constipation
Senna/Docusate Sodium 1 tablet 04/14/24 19:52
Docusate W/Senna (Pooja-Colace) Tablet PO 05/12/24 19:51
BIDPRN PRN
constipation
Sodium Chloride 0 flush 04/14/24 21:00
Sodium Chloride 0.9% (Flush) Syringe IV 05/12/24 20:59
PER PROTOCOL MARQUES
Sodium Chloride 0.5 ml 04/17/24 18:32
Nss (Pf) 10 Ml Vial For Ativan 1 Mg Dose IV 05/15/24 18:31
Q8HPRN PRN
IV LORAZEPAM DILUTION
Sterile Water 10 ml 04/15/24 14:00 04/17/24 13:15
Sterile Water For Injection 10 Ml Vial IV 05/13/24 13:59 10 ml
Q24H MARQUES Administration
Tamsulosin HCl 0.4 mg 04/16/24 08:00 04/17/24 08:38
Tamsulosin 0.4 Mg Capsule PO 05/14/24 07:59 Not Given
DAILY MARQUES
Thiamine HCl 100 mg 04/17/24 08:00 04/17/24 08:38
Thiamine 100 Mg Tablet PO 05/15/24 07:59 Not Given
DAILY MARQUES
--- NOTE | 2024-04-18 08:40 | W.PN.HOSP.TC ---
Addendum entered and electronically signed by Haim Cota MD 04/18/24 17:46:
Seen and examined by me independently in collaboration with the medical scientist.
Lab data and imaging data reviewed.
Addendum as below :
Patient acute agitation over hypertension going and systemic symptoms all resolved. Suspected secondary to acute urinary retention. He had a large volume retention. Imaging showed bladder wall thickening. He was seeing a urologist in the past
and has not fallen the last 2 years. Continue with the UTI. Consult urologist.
DC planning
Original Note:
Today's Communication/Plan
-
C/w ceftriaxone. Restart Abilify/Lamictal tomorrow. pending Echo today.
Assessment / Plan
Assessment / Plan
73 year old male
#Acute Urinary Retention
- retaining almost 900ccs on bladder scan yesterday. Placement of Rey cath relieved retention and improved blood pressure/mental status tremendously. Uncertain if obstructive (CT abd/pel shows wnl prostate, though it is not gold standard imaging
methodology) or neurogenic as a consequence of CVA.
- On Flomax 0.4mg
- Urological consult for evaluation of acute urinary retention and possible chronic Rey.
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
- Patient acutely agitated, refusing meds, afebrile but tachycardic into the 160s with pressures in the 220s/120s. ECG at the time showing sinus tachy. Given 20mg IV lopressor. Given ativan. Cardiology consult. neuro consult for suspected Serotonin
Syndrome. Sx improved with catheterization, follow up from Neuro thought to be autonomic dysreflexia from urinary retention.
- C/w hydralazine prn, Amlodipine 5mg added. Cardiology will do Echo today.
- Resume Abilify 10mg, Lamictal. May consider resuming Venlafaxine or Welbutrin, or an alternative medication without effects on BP or urinary retention.
#Sepsis secondary to UTI
#Leukocytosis (resolved)
- On admission had tachycardia, leukocytosis, tachypnea w/ source of infection (UA suggestive of UTI). S/p 3L IVF.
- Blood Cx NGTD. urine culture + for Ecoli >100k CFUs.
- C/w ceftriaxone
#Diarrhea?
- reports of loss of incontinence w/ diarrhea, tachycardic, hypertensive
- stool studies negative for Cdiff
- CT Abd/pelvis with IV contrast show no obstruction or evidence for acute bowel inflammatory changes.
#Dysphagia
- cleared by speech for regular diet.
#Expressive Aphasia
- CT Head demonstrates prior ischemic damage. Residual weakness and decorticate flexion of R arm. Patient explains expressive aphasia is a chronic issue within the last 6 months. Will continue to monitor mental status.
#Thrombocytosis - likely multifactorial. Reactive secondary to UTI vs. hemoconcentration. Will monitor.
#IDT2DM - C/w basal insulin 8U and LDISS. Hold Janumet for now.
#History of CVA - Right sided hemiparalysis w/ residual left sided weakness. Unable to ambulate. c/w aspirin & plavix.
#Hypercholesterolemia - c/w atorvastatin
#Essential Hypertension - Likely held in the setting of Sepsis. Restarted on Lisinopril.
#Depression/Anxiety - c/w venlafaxine, lamotrigine, wellbutrin, abilify and amitriptyline.
Diet - Diabetic Diet 2000 tyesha
DVT Ppx - on Lovenox SC
Code Status - DNR
Anticipated Discharge: 24 - 48 hours
Subjective/Interval History
-
Feeling well this morning w/o anymore abdominal pain or discomfort. He has no new fevers or chills, chest pain, palpitations, flushing or diaphoresis.
Objective Data
-
Labs:
Laboratory Results
04/18/24
05:58
WBC 10.3
Hgb 14.1
Hct 42.4
Plt Count 312
Sodium 141
Potassium 3.3 L
Chloride 99
Carbon Dioxide 33 H
BUN 12
Creatinine 0.6 L
Glucose 94
Calcium 8.9
Total Bilirubin 0.7
AST 27
ALT 20
Alkaline Phosphatase 96
Vital Signs:
Vital Signs
Temp Pulse Resp BP Pulse Ox
97.4 F 81 16 154/8 99
04/18/24 07:09 04/18/24 07:09 04/18/24 07:09 04/18/24 07:09 04/18/24 07:09
I&O
04/17/24 04/18/24 04/19/24
06:59 06:59 06:59
Intake Total 480 / 480 840 / 840
Output Total 1100 / 2250 2450 / 2450
Balance -620 / -1770 -1610 / -1610
Review of Systems
-
History Source: Patient
Constitutional: Denies Fever or Chills
EENT: Denies Sore Throat or Runny Nose
Respiratory: Denies Cough, Trouble Breathing or Wheezing
Cardiac: Denies Chest Pain, Diaphoresis or Palpitations
Abdomen/GI: Denies Abdominal Pain, Nausea, Vomiting or Diarrhea
Breast: Reports N/A
Genitourinary: Reports Difficulty Voiding; Denies Dysuria or Flank Pain
Musculoskeletal: Denies Joint Pain, Joint Swelling or Muscle Pain
Skin: Denies Itching or Rash
Neuro: Reports Weakness (Stable residual BL hemiparesis w/ R>L) and Tremors (Stable action tremor); Denies Headache
Physical Exam
-
General: Well Developed, Well Nourished, No Apparent Distress, Comfortable and Conversant
HEENT: Normocephalic, Atraumatic, Moist Mucous Membranes, Anicteric, Teague Conjunctivae, PERRLA, Nose Appears Normal and Ears Appear Normal
Respiratory: Clear to Auscultation; Negative Wheezes, Rales or Rhonchi
Cardiac: Regular Rhythm and S1/S2; Negative Murmur or Tachycardic
Breast: N/A
GI: Soft, Nontender, Nondistended and Normal Bowel Sounds
Genito-urinary: Clear Urine and Rey
Musculoskeletal: No Clubbing, No Cyanosis and No Edema
Skin: Warm and Dry
Neuro: AO x 3 and Other (Expressive Aphasia, stable)
[2024-04-18] MEDS: ZESTRIL 40 MG PO (09:34)
[2024-04-18] MEDS: LIPITOR 80 MG PO (09:34)
[2024-04-18] MEDS: MOBIC 7.5 MG PO (09:34)
[2024-04-18] MEDS: FLOMAX 0.4 MG PO (09:34)
[2024-04-18] MEDS: VITAMIN B1 100 MG PO (09:37)
[2024-04-18] MEDS: ASPIR LOW (ENTERIC COATED) 81 MG PO (09:37)
[2024-04-18] MEDS: NORVASC 5 MG PO (09:37)
[2024-04-18] MEDS: VITAMIN B-12 1000 MCG PO (09:37)
[2024-04-18] MEDS: KCL 40 MEQ PO (09:48)
--- NOTE | 2024-04-18 12:20 | W.PN.CARDCBS ---
Addendum entered and electronically signed by Calli Gee DO 04/18/24 22:09:
I saw and examined the patient.
The Wrapper Rewinder's note was reviewed and I agree with the note.
Comment: Patient seen and examined at bedside. Chart/telemetry reviewed. Today patient is reporting no complaints of pain. Denies chest pain or pressure, shortness of breath or palpitations
General: Awake alert and oriented, NAD
Heart: Regular, positive S1/S2 no murmur
Lungs: Bronchovesicular breath sounds decreased but clear
Abd: Positive BS, NT/ND, neg rebound/rigidity/guarding
Ext: No edema.Chronic contractures
Plan:
-Patient with penile pain and UTI. Patient is on Rocephin and Rey cath removed 04/17/24.
-From a cardiac standpoint, BP has improved with addition of amlodipine 5 mg daily 04/17/24
-2D echocardiogram with normal biventricular size and systolic function and no significant valve pathology.
-Outpatient dose of lisinopril 40 mg daily has been continued
-Hydralazine 5 mg IV q 6 hours PRN also ordered, but last dose given was 04/17/24 at 1153
-Patient is not on tele and HRs in the 80s to 90s by VS data. ECG on 04/17/24 was sinus tachycardia with artifact.
-TSH normal at 1.29
-Continue risk factor modification post prior strokes with outpatient dose of aspirin 81 mg daily
-Outpatient dose of atorvastatin 80 mg daily continued
-Will sign off, recall if needed
Original Note:
Today's Communication / Plan
-
BP improved with addition of amlodipine
Impression / Plan
-
PCP: Dr. Silas Crooks
Card: None
Impression:
Admitted with sepsis and UTI 04/14/24
HTN urgency
Sinus tachycardia
h/o multidrug resistant HTN
Delirium with TME and agitation
History of stroke x 3-old strokes noted on recent CT scan this admission
Cognitive dysfunction related to stroke
Expressive aphasia
Paralysis and weakness
Hyperlipidemia
Diabetes
Thrombocytosis
Echo 03/31/2013 ejection fraction 55 to 60%. No significant valve disease.
Echo 04/18/24: Study pending
Plan:
-Patient with penile pain and UTI. Patient is on Rocephin and Rey cath removed 04/17/24.
-From a cardiac standpoint, BP has improved with addition of amlodipine 5 mg daily 04/17/24
-Outpatient dose of lisinopril 40 mg daily has been continued
-Hydralazine 5 mg IV q 6 hours PRN also ordered, but last dose given was 04/17/24 at 1153
-Patient is not on tele and HRs in the 80s to 90s by VS data. ECG on 04/17/24 was sinus tachycardia with artifact.
-TSH normal at 1.29
-Continue risk factor modification post prior strokes with outpatient dose of aspirin 81 mg daily
-Outpatient dose of atorvastatin 80 mg daily continued
Progress Note - [employer]
Subjective
Date of Service: April 18, 2024
He says he feels better
Objective
Labs:
04/18/24 05:58
04/18/24 05:58
Labs
Hgb 14.1 g/dL (13.0-18.0) 04/18/24 05:58
Hct 42.4 % (39.0-52.0) 04/18/24 05:58
Plt Count 312 10^3/uL (130-400) 04/18/24 05:58
Sodium 141 mmol/L (135-145) 04/18/24 05:58
Potassium 3.3 mmol/L (3.5-5.1) L 04/18/24 05:58
BUN 12 mg/dl (9-20) 04/18/24 05:58
Creatinine 0.6 mg/dL (0.7-1.3) L 04/18/24 05:58
Glucose 94 mg/dl (70-99) 04/18/24 05:58
Troponins
04/17/24
14:07
Troponin I 0.019
Vital Signs and I&O:
Vital Signs
Temp Pulse Resp BP Pulse Ox
97.4 F 93 16 154/88 99
04/18/24 07:09 04/18/24 09:34 04/18/24 07:09 04/18/24 09:34 04/18/24 07:09
Vital Signs
Temp Pulse Resp BP Pulse Ox
97.4 F 93 16 154/88 99
04/18/24 07:09 04/18/24 09:34 04/18/24 07:09 04/18/24 09:34 04/18/24 07:09
Intake & Output
04/16/24 04/17/24 04/18/24 04/19/24
06:59 06:59 06:59 06:59
Intake Total 1650 / 1650 480 / 480 840 / 840
Output Total 450 / 450 1100 / 2250 2450 / 2450
Balance 1200 / 1200 -620 / -1770 -1610 / -1610
Physical Exam
Physical Exam
GEN: NAD
HEENT: MMM
LUNGS: RA. No audible wheeze
CV: Reg, no murmur
ABD: ND
EXT: No edema B/L
NEURO: Gross non-focal
SKIN: No rash
[2024-04-18] MEDS: ROCEPHIN 1000 MG IV (13:52)
[2024-04-18 13:54] VITALS: BP 160/90; PULSE 93; O2SAT 99
[2024-04-18] MEDS: STERILE WATER FOR INJECTION 10 ML IV (13:56)
[2024-04-18 14:03] LABS: Glucose - Point of Care 124 mg/dl (70-99)
--- NOTE | 2024-04-18 15:35 | W.PN.UPDATE ---
Update Note
Progress Note Update
Pt seen, resting in bed in no acute distress. He states he felt a little depressed this morning. Pt noted to have elevated BP and Heart rate, was suspected of having Serotonin Syndrome, VS improved after Rey placed and bladder drained of 900 cc.
Pt states he was very uncomfortable/in pain from urinary retention. Antidepressants have been held- pt was on a combination which could have contributed to urinary retention. Pt was ordered Ativan 1 mg Q8 hr prn- has not been needed. Pt states
the antidepressants have been prescribed by a doctor through his assisted living facility. No signs of side effects/EPS on Abilify, increased to 10 mg daily.
Imp: Unspecified depressive d/o, with long history. No signs of Serotonin Syndrome at this point
Rec: continue Lamictal and Abilify. Consider resuming an antidepressant that is not associated with effects on BP or urinary retention
will follow
[2024-04-18 15:45] VITALS: BP 136/89
[2024-04-18] MEDS: LOVENOX 40 MG SC (17:13)
[2024-04-18 17:32] LABS: Glucose - Point of Care 181 mg/dl (70-99)
[2024-04-18] MEDS: NOVOLOG FLEXPEN-LOW RESISTANCE 1 UNITS SC (17:56)
--- NOTE | 2024-04-18 18:13 | W.PN.URO.CBU ---
Today's Communication / Plan
-
keep jackson
Assessment / Plan
-
urinary retention uti needs jackson has small prostae may all be neurogenic bladder john evaluate as outpatiernt
Diagnosis
-
Date of Service: April 18, 2024
-
Patient Diagnosis:complex uti ngb bladder uti retention
Post Op Day:
Subjective
-
tolerating jackson
Objective
-
Vital Signs
Temp Pulse Resp BP Pulse Ox
98.3 F 103 16 136/89 95
04/18/24 15:45 04/18/24 15:45 04/18/24 15:45 04/18/24 15:45 04/18/24 15:45
Intake and Output
04/17/24 04/18/24 04/19/24
06:59 06:59 06:59
Intake Total 480 / 480 840 / 840
Output Total 1100 / 2250 2450 / 2450
Balance -620 / -1770 -1610 / -1610
Intake:
Oral fluids 480 / 480 840 / 840
Output:
Urine, Jackson 1100 / 2250 2450 / 2450
Other:
How many times incontinent 1
MODERATE amount urine
How many times incontinent 1
SATURATED amount urine
Laboratory Results
04/18/24 05:58
04/18/24 05:58
Review of Systems
-
: Difficulty Voiding
Physical Exam
-
General - well developed, well nourished, no acute distress
Chest - clear bilaterally
Abdomen - soft, non-tender, positive bowel sounds, no CVAT, no incisional pain or distention
Genitalia - normal
Rectal - normal
Skin - warm & dry with no rash
Neuro s/p stroke
Extremities - no clubbing, no cyanosis, no edema
Incision - clean, dry
Dressing - clean, dry, intact
Care Review
Data Reviewed
Discussed with: Nursing
CT Scan: Image Pers Reviewed
[2024-04-18 21:15] LABS: Glucose - Point of Care 240 mg/dl (70-99)
[2024-04-18] MEDS: LANTUS 0.08 UNITS SC (21:54)
[2024-04-18 23:13] VITALS: BP 126/81
[2024-04-19 03:00] VITALS: BP 157/85
[2024-04-19 07:31] LABS: % Basophils 0.8 % (0-2); % Eosinophils 4.5 % (0-6); % Immature Granulocytes 0.8 % (0-0.5); % Lymphocytes 27.9 % (20.5-51.1); % Monocytes 7.5 % (1.7-9.3); % Neutrophils 58.5 % (42.2-75.2); Absolute Basophils 0.1 10^3/uL (0-0.2); Absolute Eosinophils 0.3 10^3/uL (0-0.7); Absolute Immature Granulocytes 0.1 10^3/uL (0-0.05); Absolute Lymphocytes 2.1 10^3/uL (1.2-3.4); Absolute Monocytes 0.6 10^3/uL (0.1-0.6); Absolute Neutrophils 4.4 10^3/uL (1.4-6.5); Hematocrit 44.4 % (39.0-52.0); Hemoglobin 14.4 g/dL (13.0-18.0); Mean Corp Hgb Conc. 32.4 g/dL (33.0-37.0); Mean Corpuscular Hgb 29.3 pg (27.0-31.0); Mean Corpuscular Volume 90.4 fL (80.0-94.0); Mean Platelet Volume 10.8 fL (7.4-10.4); Nucleated Red Blood Cells % 0 % (-); Platelet Count 282 10^3/uL (130-400); Red Blood Cell Count 4.91 10^6/uL (4.70-6.10); White Blood Cell Count 7.5 10^3/uL (4.8-10.8)
[2024-04-19 08:00] LABS: Glucose - Point of Care 154 mg/dl (70-99)
[2024-04-19 08:08] LABS: ALT (SGPT) 25 U/L (0-50); AST (SGOT) 29 U/L (17-59); Albumin 3.7 g/dl (3.5-5.0); Alkaline Phosphatase 105 U/L (38-126); Blood Urea Nitrogen 12 mg/dl (9-20); Calcium 8.8 mg/dl (8.4-10.2); Carbon Dioxide 32 mmol/L (22-30); Chloride 97 mmol/L (98-107); Estimated Creatinine Clearance 92 ml/min; Glucose 110 mg/dl (70-99); Potassium 3.5 mmol/L (3.5-5.1); Sodium 139 mmol/L (135-145); Total Bilirubin 0.7 mg/dl (0.2-1.3); Total Protein 6.1 g/dl (6.3-8.2); eGFR > 60.00
--- NOTE | 2024-04-19 08:10 | PN.CDI ---
CDI
- -
CDI:
Physician Documentation Request
Admit Date: 04/14/24 16:10
Dear Doctor Esau,
Please review the following and provide your response in the progress notes.
Clinical Indicators:
Pt admitted with Sepsis, UTI, and TME.
04/14 In wound panel RN documented sacral PI POA
Physician documentation of the type and location of wounds is required for compliant documentation. Based on the above clinical findings and your assessment, please provide the following in your progress note:
Location of the ulcer/wound, including laterality.
Type (etiology) of ulcer/wound:
Sacral Pressure Injury POA
Non-pressure wound POA
Other
Use of terms such as suspected, likely, concern for, or probable (associated with a specific diagnosis that is being evaluated, monitored, or treated as if it exists) are acceptable and can be coded in the inpatient setting, when documented at the
time of discharge.
Thank you,
Tasia Reza RN, BSN
CDI Specialist
[facility] Text
Please use your independent medical judgment in providing your response.
*Source: National Pressure Ulcer Advisory Panel (NPUAP)
[2024-04-19] MEDS: LAMICTAL 200 MG PO (08:21)
[2024-04-19] MEDS: MOBIC 7.5 MG PO (08:21)
[2024-04-19] MEDS: ASPIR LOW (ENTERIC COATED) 81 MG PO (08:21)
[2024-04-19] MEDS: VITAMIN B1 100 MG PO (08:21)
[2024-04-19] MEDS: LIPITOR 80 MG PO (08:21)
[2024-04-19] MEDS: VITAMIN B-12 1000 MCG PO (08:23)
[2024-04-19] MEDS: ABILIFY 10 MG PO (08:23)
[2024-04-19] MEDS: FLOMAX 0.4 MG PO (08:23)
[2024-04-19] MEDS: NORVASC 5 MG PO (08:26)
[2024-04-19 08:27] VITALS: BP 166/87
[2024-04-19] MEDS: ZESTRIL 40 MG PO (08:27)
[2024-04-19] MEDS: NOVOLOG FLEXPEN-LOW RESISTANCE 1 UNITS SC (08:30)
--- NOTE | 2024-04-19 08:38 | W.PN.HOSP.TC ---
Today's Communication/Plan
-
C/w abx. Psych following. Keep Rey. Possible d/c today.
Assessment / Plan
Assessment / Plan
73 year old male
#Acute Urinary Retention
- retaining almost 900ccs on bladder scan yesterday. Placement of Rey cath relieved retention and improved blood pressure/mental status tremendously. Uncertain if obstructive (CT abd/pel shows wnl prostate, though it is not gold standard imaging
methodology) or neurogenic as a consequence of CVA.
- On Flomax 0.4mg
- Urological consulted, felt to be mostly neurological. Will evaluate him as outpatient but keep Rey for now.
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
- Patient acutely agitated, refusing meds, afebrile but tachycardic into the 160s with pressures in the 220s/120s. ECG at the time showing sinus tachy. Given 20mg IV lopressor. Given ativan. Cardiology consult. neuro consult for suspected Serotonin
Syndrome. Sx improved with catheterization, follow up from Neuro thought to be autonomic dysreflexia from urinary retention.
- C/w hydralazine prn, Amlodipine 5mg added.
- ECHO showing EF 55-60%
#Acute Agitation (resolved)
#Depression/Anxiety
- Initially suspicious for Serotonin syndrome, however now unlikely. Psych consulted for agitation initially.
- C/w Abilify 10mg, Lamictal.
- May consider resuming Venlafaxine or Welbutrin, or an alternative medication without effects on BP or urinary retention.
-Psych following; would like to have some antidepressant coverage on discharge given significant depression.
#Sepsis secondary to UTI
#Leukocytosis (resolved)
- On admission had tachycardia, leukocytosis, tachypnea w/ source of infection (UA suggestive of UTI). S/p 3L IVF.
- Blood Cx NGTD. urine culture + for Ecoli >100k CFUs.
- C/w ceftriaxone; transition to PO on discharge
#Diarrhea
- reports of loss of incontinence w/ diarrhea, tachycardic, hypertensive
- stool studies negative for Cdiff
- CT Abd/pelvis with IV contrast show no obstruction or evidence for acute bowel inflammatory changes.
#Dysphagia
- cleared by speech for regular diet.
#Expressive Aphasia
- CT Head demonstrates prior ischemic damage. Residual weakness and decorticate flexion of R arm. Patient explains expressive aphasia is a chronic issue within the last 6 months. Will continue to monitor mental status.
#Thrombocytosis (resolved) - likely multifactorial. Reactive secondary to UTI vs. hemoconcentration. Will monitor.
#IDT2DM - C/w basal insulin 8U and LDISS. Hold Janumet for now.
#History of CVA - Right sided hemiparalysis w/ residual left sided weakness. Unable to ambulate. c/w aspirin & plavix.
#Hypercholesterolemia - c/w atorvastatin
#Essential Hypertension - Likely held in the setting of Sepsis. Restarted on Lisinopril. Amlodipine added as above.
#Sacral Pressure Injury POA
Diet - Diabetic Diet 2000 tyesha
DVT Ppx - on Lovenox SC
Code Status - DNR
Anticipated Discharge: Within 24 hours
Subjective/Interval History
-
No new fevers or chills. However, patient is feeling
Objective Data
-
Labs:
Laboratory Results
04/19/24
05:13
WBC 7.5
Hgb 14.4
Hct 44.4
Plt Count 282
Sodium 139
Potassium 3.5
Chloride 97 L
Carbon Dioxide 32 H
BUN 12
Creatinine 0.7
Glucose 110 H
Calcium 8.8
Total Bilirubin 0.7
AST 29
ALT 25
Alkaline Phosphatase 105
Vital Signs:
Vital Signs
Temp Pulse Resp BP Pulse Ox
98 F 103 18 166/87 99
04/19/24 08:27 04/19/24 08:27 04/19/24 08:27 04/19/24 08:27 04/19/24 08:27
I&O
04/18/24 04/19/24 04/20/24
06:59 06:59 06:59
Intake Total 840 / 840 720 / 720
Output Total 2450 / 2450 575 / 575
Balance -1610 / -1610 145 / 145
Review of Systems
-
History Source: Patient
Constitutional: Reports No Symptoms
EENT: Reports No Symptoms Reported
Respiratory: Reports No Symptoms
Cardiac: Reports No Symptoms
Abdomen/GI: Reports No Symptoms
Breast: Reports N/A
Genitourinary: Reports No Symptoms
Musculoskeletal: Reports No Symptoms
Skin: Reports No Symptoms
Neuro: Reports No Symptoms
Psych: Reports Depressed
Physical Exam
-
General: Well Developed, Well Nourished, No Apparent Distress and Conversant
HEENT: Normocephalic, Atraumatic, Moist Mucous Membranes and PERRLA
Respiratory: Clear to Auscultation; Negative Wheezes, Rales or Rhonchi
Cardiac: Regular Rhythm and S1/S2; Negative Murmur
GI: Soft, Nontender and Nondistended
Genito-urinary: Clear Urine and Rey
Musculoskeletal: No Clubbing, No Cyanosis and No Edema
Skin: Warm, Dry and IV Access / Catheter Site
Neuro: AO x 3
Psych: Depressed
--- NOTE | 2024-04-19 09:49 | W.PN.NEURO.1 ---
Today's Communication / Plan
-
Continue thiamine
Appreciate assistance by urology regarding the patient's urinary retention; will need outpatient MRI of thoracic and lumbar spines
Would avoid routine Rey use and have instead frequent catheterization as outpatient
Continue atorvastatin 80 mg nightly
Continue aspirin 81 mg daily
Outpatient MRA head and neck due to the patient's multiple lacunar infarcts which are chronic in appearance
Neuro Assessment/Plan
Assessment
CT of head results: 'There is moderate diffuse cortical atrophy with nonspecific moderate white matter changes as described above.
There is old 4 cm left occipital infarct which was not present on the prior study
There is old 4 cm left parietal infarct which was present on the prior study
There is old 1.8 cm infarct in the left lentiform nucleus and centrum semiovale which was present on the previous examination'
Change in mental status including reduced verbal output. Possible serotonin syndrome, now thought to be less likely based on improvement of the patient's urinary retention leading to cognitive improvement and reduced agitation
Autonomic dysfunction, history of EtOH addiction, gait dysfunction= ? Paroxysmal Sympathetic Hypersensitivity
Plan
Continue thiamine
Appreciate assistance by urology regarding the patient's urinary retention; will need outpatient MRI of thoracic and lumbar spines
Would avoid routine Rey use and have instead frequent catheterization as outpatient
Continue atorvastatin 80 mg nightly
Continue aspirin 81 mg daily
Outpatient MRA head and neck due to the patient's multiple lacunar infarcts which are chronic in appearance
Will follow peripherally
Subjective/Objective
Subjective Data
Date of Service: April 19, 2024
Patient reports diplopia for the last year and worsening stuttering.
Objective Data
Vital Signs
Temp Pulse Resp BP Pulse Ox
36.6 C 103 18 166/87 99
04/19/24 08:27 04/19/24 08:27 04/19/24 08:27 04/19/24 08:27 04/19/24 08:27
Lab Results
04/19/24 05:13
04/19/24 05:13
Sodium 139 mmol/L (135-145) 04/19/24 05:13
Potassium 3.5 mmol/L (3.5-5.1) 04/19/24 05:13
BUN 12 mg/dl (9-20) 04/19/24 05:13
Glucose 110 mg/dl (70-99) H 04/19/24 05:13
Calcium 8.8 mg/dl (8.4-10.2) 04/19/24 05:13
LDL Cholesterol, Calc Cancelled 04/17/24 17:17
Ur Buprenorphine Negative (Negative) 04/18/24 06:48
Patient Allergies
influenza virus vaccine, specific Allergy (Unknown, Verified 04/14/24 14:02)
made him sick and got the flu
STERI STRIPS Allergy (Unknown, Uncoded 04/14/24 14:02)
Unknown
steri strips Allergy (Uncoded 04/14/24 14:02)
Rash
Review of Systems
-
History Source: Patient
All other systems: Reviewed and negative
Abdomen/GI: Negative Constipated
Genitourinary: Difficulty Voiding
Neuro: Weakness; Negative Dizzy or Headache
Physical Exam
-
General: No Apparent Distress and Appears Stated Age
Eyes: Round OU, Kreamer Conjunctivae and No Ptosis
HEENT: Anicteric and Moist Mucous Membranes
Neck: Full Range of Motion
Respiratory: No Dyspnea
Cardiac: No JVD
GI: Non-distended
Skin: Unremarkable
Extremities: No Clubbing, No Cyanosis and No Edema
Psych: Negative Intact Judgement/Insight
Extended Neurological Exam
Mood & Affect: Mood Unremarkable and Affect Unremarkable
Attention Span & Concentration: Awake, Alert, Interactive and Mild Difficulty with 2 Step Request
Memory: Vague
Tremor: Hand Tremor Absent and Head Tremor Absent
Involuntary Movement: None
Speech: Quantity Unremarkable and Other (Low volume)
Cranial Nerve II: Left Eye: Pupillary Size Unremarkable and Visual Smith Grossly Intact
Cranial Nerve II: Right Eye: Pupillary Size Unremarkable and Visual Smith Grossly Intact
Cranial Nerves III, IV, : Extraocular Movement: Grossly Intact
Cranial Nerve VII: Facial Symmetry: Normal Facial Symmetry
Cranial Nerve VIII: Hearing: Unremarkable Hearing to Normal Conversational Volume
Muscle Strength, Overall: Absent (Right upper extremity, reduced right lower extremity to being unable to lift right leg off of bed for greater than 1 second)
Muscle Bulk & Tone: Bulk Unremarkable and Increased Tone (Right upper extremity tonic contractures)
Pronator Drift: Unable to Assess (Right upper extremity); Negative Drift in Left Upper Extremity
Touch Sensation: Unremarkable
Coordination: [id number] Testing Unremarkable (Using left upper extremity)
Gait & Station: Unable to Assess
Data Reviewed
-
Labs: Report Reviewed
Reviewed with: Physician
Old Records: Summarized
[2024-04-19] MEDS: TYLENOL 650 MG PO (10:21)
[2024-04-19 11:22] VITALS: BP 110/80
--- NOTE | 2024-04-19 11:24 | CM ---
entered order for discharge.
Spoke with Amarilys at [facility]
Pt can return application support administrator today.
LM with kelsey Jacobson [phone] as per contact sheet. Sohail schwartz number was wrong.
IMM reviewed with pt on chart .
Medical nec form completed.
[place]
report [phone]
fax [phone]
PLAN To [place] rn home health
[2024-04-19 11:54] LABS: Glucose - Point of Care 282 mg/dl (70-99)
[2024-04-19] MEDS: NOVOLOG FLEXPEN-LOW RESISTANCE 3 UNITS SC (12:11)
[2024-04-19] MEDS: WELLBUTRIN XL (24 hour extended release) 300 MG PO (12:12)
--- NOTE | 2024-04-19 12:17 | W.DCSUMMARY ---
Discharge Summary
Discharge Data
Date of Admission: 04/14/24
Date of Discharge: 04/19/24
Total time spent discharging patient (in min): >30min
-
Pending Results: No
Hospital Course
Discharging Physician : Dr. Deepak Cifuentes, Dr. Haim Cota
Disposition : [facility]
Primary care physician : Dr. Silas Crooks
Principal Discharge diagnosis : Acute Metabolic Encephalopathy, Sepsis Secondary to UTI, Acute Agitation, Acute Urinary Retention, Diarrhea, Dysphagia, Depression
Chronic Discharge diagnosis : Expressive Aphasia, Thrombocytosis, IDDM, History of CVA, Hypercholesterolemia, Essential Hypertension
Hospital Course :
Kieran Walsh was brought to the [facility] from [place] for complaints of confusion and lethargy. On arrival he was somnolent and not conversant. He had tachycardia, leukocytosis and a UA suggestive of UTI. He was given IV fluids, blood and urine
cultures were drawn, and he was started on IV ceftriaxone. A Rey catheter was placed and he was given Flomax. A head CT was done which demonstrated no acute intracranial abnormalities (full impression below). He was observed to be dysphagic and so
his medications were transitioned to IV substitutes or held. His basal insulin was kept at a lower dose as he was NPO.
His mental status rapidly improved after catheterization and antibiotic administration. He was evaluated by Speech Therapy and advanced to an IDDSI-4 diet w/ thin liquids. He was started back on his oral medications and continued on IV antibiotics.
Blood cultures showed NG after 48 hours, his urine cultures grew Enterococcus and so he was continued on Ceftriaxone. However, he developed acute agitation and elevated blood pressures. He was given 0.25mg IV ativan which did not improve agitation.
He had a bout of tachycardia into the 150s, and hypertension into the 220s/120s. 5mg IV Hydralazine and 20mg of IV Lopressor did little to improve pressures, though his heart rate improved to 110s. A bladder scan was done which showed almost 900ccs
of urine. The Rey was placed again, after which time his agitation and vital signs all rapidly improved. Neurology and Urology were consulted. Imaging and physical exam did not reveal an enlarged prostate and the patient's urinary retention was
felt to be neurogenic in nature. He was recommended outpatient follow up with Urology, as well as outpatient imaging of the head, neck and spine (MRA head/neck, MRI lumbar spine w/ & w/o IV contrast). He is recommended to keep the Rey until he is
seen by Dr. Rosales as outpatient.
He has completed a 5d course of antibiotics for his UTI. We are not recommending any further antibiotics at this time.
The patient was also seen by psychiatry during his admission. The decision was made to d/c medications which would affect his blood pressure or cause urinary retention. His Abilify was increased to 10mg, his Venlafaxine was stopped due to rare side
effects of urinary retention, and his Bupropion and Lamictal were continued as well.
For the episode of hypertension/tachycardia, Cardiology was consulted. They performed an echocardiogram (results below). His Amlodipine was increased to 10mg.
The rest of his chronic diagnoses were managed with home medications unless otherwise specified. There were no other acute advancements, changes, or decompensations of chronic illnesses aside from those listed above.
Active Medications
Generic Name Dose Route Start Last Admin
Trade Name Freq PRN Reason Stop Dose Admin
Acetaminophen 650 mg 04/14/24 19:52 04/19/24 10:21
Acetaminophen 325 Mg Tablet PO 05/12/24 19:51 650 mg
Q4HPRN PRN Administration
mild pain/STONE/temp> 100.4F
Acetaminophen 650 mg 04/14/24 19:52
Acetaminophen 650 Mg Rectal Suppository RECTAL 05/12/24 19:51
Q4HPRN PRN
mild pain/STONE/temp> 100.4F
Amlodipine Besylate 10 mg 04/20/24 08:00
Amlodipine 10 Mg Tablet PO 05/18/24 07:59
DAILY MARQUES
Aripiprazole 10 mg 04/18/24 08:00 04/19/24 08:23
Aripiprazole 10 Mg Tablet PO 05/16/24 07:59 10 mg
DAILY MARQUES Administration
Aspirin 300 mg 04/14/24 19:52
Aspirin 300 Mg Rectal Suppository RECTAL 05/12/24 19:51
DAILYPRN PRN
cannot take PO
Aspirin 81 mg 04/15/24 08:00 04/19/24 08:21
Aspirin 81 Mg (Enteric Coated) Tablet PO 05/13/24 07:59 81 mg
DAILY MARQUES Administration
Atorvastatin Calcium 80 mg 04/15/24 08:00 04/19/24 08:21
Atorvastatin (Lipitor) 80 Mg Tablet PO 05/13/24 07:59 80 mg
DAILY MARQUES Administration
Bisacodyl 10 mg 04/14/24 19:52
Bisacodyl 10 Mg Rectal Suppository RECTAL 05/12/24 19:51
[id number] PRN
constipation
Bupropion HCl 300 mg 04/19/24 12:00 04/19/24 12:12
Bupropion (24hr) Extended Release 300 Mg Tablet PO 05/17/24 11:59 300 mg
DAILY MARQUES Administration
Ceftriaxone Sodium 1,000 mg 04/15/24 14:00 04/18/24 13:52
Ceftriaxone 1000 Mg / 10 Ml Vial IV 1,000 mg
Q24H MARQUES Administration
Cyanocobalamin 1,000 mcg 04/17/24 08:00 04/19/24 08:23
Cyanocobalamin 1,000 Mcg Tablet PO 05/15/24 07:59 1,000 mcg
DAILY MARQUES Administration
Dextrose 12.5 grams 04/14/24 19:52
Dextrose 50% (0.5 Grams/Ml) 50 Ml Syringe IV 05/12/24 19:51
[id number] PRN
hypoglycemia
Protocol
Enoxaparin Sodium 40 mg 04/14/24 19:52 04/18/24 17:13
Enoxaparin Sodium 40 Mg/0.4 Ml Syringe SC 05/12/24 19:51 40 mg
QPM MARQUES Administration
Hydralazine HCl 5 mg 04/17/24 08:48 04/17/24 11:53
Hydralazine 20 Mg/Ml Vial IV 05/15/24 08:47 5 mg
Q6HPRN PRN Administration
Hypertension
Insulin Glargine 8 units/ 0.08 mls @ 0 mls/hr 04/15/24 22:00 04/18/24 21:54
Device SC 05/13/24 21:59 0.08 mls
HS MARQUES Administration
As Directed
Insulin Aspart 0 units 04/14/24 19:52 04/19/24 12:11
Insulin Aspart Low Resistance 300 Units/3 Ml Pen.Injctr SC 05/12/24 19:51 3 units
AC MARQUES Administration
Protocol
Lamotrigine 200 mg 04/15/24 08:00 04/19/24 08:21
Lamotrigine 100 Mg Tablet PO 05/13/24 07:59 200 mg
DAILY MARQUES Administration
Lisinopril 40 mg 04/16/24 08:00 04/19/24 08:27
Lisinopril 20 Mg Tablet PO 05/14/24 07:59 40 mg
DAILY MARQUES Administration
Melatonin 5 mg 04/16/24 22:00
Melatonin 5 Mg Tablet PO 05/14/24 21:59
HSPRN PRN
sleep
Meloxicam 7.5 mg 04/17/24 08:00 04/19/24 08:21
Meloxicam (Mobic) 7.5 Mg Tablet PO 05/15/24 07:59 7.5 mg
DAILY MARQUES Administration
Polyethylene Glycol 17 grams 04/14/24 19:52
Polyethylene Glycol Powder 17 Grams Packet PO 05/12/24 19:51
DAILYPRN PRN
constipation
Senna/Docusate Sodium 1 tablet 04/14/24 19:52
Docusate W/Senna (Pooja-Colace) Tablet PO 05/12/24 19:51
BIDPRN PRN
constipation
Tamsulosin HCl 0.4 mg 04/16/24 08:00 04/19/24 08:23
Tamsulosin 0.4 Mg Capsule PO 05/14/24 07:59 0.4 mg
DAILY MARQUES Administration
Thiamine HCl 100 mg 04/17/24 08:00 04/19/24 08:21
Thiamine 100 Mg Tablet PO 05/15/24 07:59 100 mg
DAILY MARQUES Administration
Important imaging findings :
CT Head W/o Iv Contrast:
There are no acute intracranial abnormalities.
There is moderate diffuse cortical atrophy with nonspecific moderate white matter changes as described above.
There is old 4 cm left occipital infarct which was not present on the prior study
There is old 4 cm left parietal infarct which was present on the prior study
There is old 1.8 cm infarct in the left lentiform nucleus and centrum semiovale which was present on the previous examination
CR Chest Portable - 1 View:
No active cardiopulmonary disease.
CT Abd/pelvis Wo Iv Cont:
Rey catheter is present within a collapsed bladder. Stranding of the fat surrounding the bladder and suggestion of bladder wall thickening, findings suggestive of cystitis.
No evidence for urinary tract calculi.
No evidence for bowel obstruction or free intraperitoneal air.
CT Abd/pel W Iv And Oral Contr:
Empty urinary bladder containing Rey catheter/balloon. Findings suggesting diffuse thickening of the wall of the urinary bladder such as cystitis. Prostate gland likely not enlarged, difficult to measure with this imaging modality particularly due
to adjacent/contiguous unopacified urinary bladder. If prostate gland with measurement is warranted, consider dedicated Endorectal Prostate ultrasound.
Somewhat limited evaluation of portions of large and small bowel without oral contrast opacification without intestinal obstruction, free air or gross focal pericolonic inflammatory changes.
Subcentimeter low-attenuation left lobe hepatic lesion too small to characterize.
Likely coronary artery calcifications.
Echocardiography Report:
Left ventricle is small in size. Normal left ventricular wall thickness. Normal left ventricular systolic function. Left ventricular ejection fraction is 55-60% by visual assessment. Wall motion analysis is limited by the image quality. Normal
diastolic function. Since echo March 2013, there is no significant change.
Procedure findings :
None.
Discharge Plan
-
Patient Disposition: Detention [facility]
Condition: Good
Discharge Orders:
Discharge Patient (As Directed); Ordered 04/19/24
Ordered By: Deepak Cifuentes
Discharge Date and Time
Print Language: LATVIAN
--- NOTE | 2024-04-19 15:22 | W.PN.UPDATE ---
Update Note
Progress Note Update
Pt seen, reviewed with hospitalist. Pt c/o depressed mood, asking for a med that will work instantly/immediately. Discussed options, risks, including a rare incidence of urinary retention on Effexor; also a risk on Amitriptyline.
Imp: Unspecified Depressive d/o, chronic
TME, improved. Aphasia/cognitive impairment due to old strokes- stable
Rec: restart Wellbutrin XL at 300 mg AM. Pt stable for discharge with Outpatient med mgt upon return home/when medically cleared.
Continue Lamictal (mood-stabilizer), Abilify 10 mg QD
--- NOTE | 2024-04-19 16:15 | W.PN.URO.CBU ---
Today's Communication / Plan
-
home with jackson
Assessment / Plan
-
urinary retention uti needs jackson has small prostae may all be neurogenic bladder john evaluate as outpatiernt
Diagnosis
-
Date of Service: April 19, 2024
-
Patient Diagnosis:
Post Op Day:
Patient Diagnosis:complex uti ngb bladder uti retention
Post Op Day:
Subjective
-
feels baeline
Objective
-
Vital Signs
Temp Pulse Resp BP Pulse Ox
98.3 F 117 18 110/80 98
04/19/24 11:22 04/19/24 11:22 04/19/24 11:22 04/19/24 11:22 04/19/24 11:22
Intake and Output
04/18/24 04/19/24 04/20/24
06:59 06:59 06:59
Intake Total 840 / 840 720 / 720 660 / 660
Output Total 2450 / 2450 575 / 575
Balance -1610 / -1610 145 / 145 660 / 660
Intake:
Oral fluids 840 / 840 720 / 720 660 / 660
Output:
Urine, Jackson 2450 / 2450 575 / 575
Other:
How many times incontinent 1
MODERATE amount urine
How many times incontinent 1 1
SATURATED amount urine
Laboratory Results
04/19/24 05:13
04/19/24 05:13
Review of Systems
-
: Difficulty Voiding
Physical Exam
-
General - well developed, well nourished, no acute distress
Chest - clear bilaterally
Abdomen - soft, non-tender, positive bowel sounds, no CVAT, no incisional pain or distention
Genitalia - normal
Rectal - normal
Skin - warm & dry with no rash
Neuro - AOx3, no motor deficits
Extremities - no clubbing, no cyanosis, no edema
Incision - clean, dry
Dressing - clean, dry, intact
Care Review
Data Reviewed
Discussed with: Hospitalist
[2024-04-19 17:14] LABS: Lamotrigine (Lamictal) 3.4 ug/mL (3.0-15.0)
== END 2024-04-19 14:15 | DRG 871 ==
LOC: 4 EAST ACU 16:10
PROVIDERS: Physician Assistant; ADMITTING PHYSICIAN Student in an Organized Health Care Education/Training Program; ATTENDING PHYSICIAN Internal Medicine; CONSULT PHYSICIAN Internal Medicine Cardiovascular Disease; CONSULT PHYSICIAN Psychiatry & Neurology Neurology; CONSULT PHYSICIAN Psychiatry & Neurology Psychiatry; EMERGENCY PHYSICIAN Emergency Medicine; FAMILY PHYSICIAN Student in an Organized Health Care Education/Training Program; OTHER PHYSICIAN Internal Medicine Critical Care Medicine
DX: A41.81 Sepsis due to Enterococcus (principal); G93.41 Metabolic encephalopathy; I69.351 Hemiplegia and hemiparesis following cerebral infarction affecting right dominant side; N39.0 Urinary tract infection, site not specified; R47.01 Aphasia; F05 Delirium due to known physiological condition; I16.1 Hypertensive emergency; Z66 Do not resuscitate; I10 Essential (primary) hypertension; E78.00 Pure hypercholesterolemia, unspecified; R33.8 Other retention of urine; D75.839 Thrombocytosis, unspecified; F41.9 Anxiety disorder, unspecified; F32.A Depression, unspecified; E11.649 Type 2 diabetes mellitus with hypoglycemia without coma; R13.19 Other dysphagia; R45.1 Restlessness and agitation; R19.7 Diarrhea, unspecified; R00.0 Tachycardia, unspecified; F34.1 Dysthymic disorder; G90.81 Serotonin syndrome; G21.4 Vascular parkinsonism; K21.9 Gastro-esophageal reflux disease without esophagitis; L89.159 Pressure ulcer of sacral region, unspecified stage; Z11.52 Encounter for screening for COVID-19; Z99.3 Dependence on wheelchair; Z96.651 Presence of right artificial knee joint; Z79.899 Other long term (current) drug therapy; Z79.4 Long term (current) use of insulin; Z79.84 Long term (current) use of oral hypoglycemic drugs; Z79.82 Long term (current) use of aspirin
CPT/HCPCS: 70450; 71045; 74176; 74177; 80048; 80053; 80061; 80175; 80306; 80307; 81003; 81015; 82140; 82550; 82962; 83036; 83735; 84443; 84484; 85025; 87040; 87070; 87077; 87086; 87186; 87324; 87449; 87502; 87798; 87811; 92526; 92610; 93005; 93306; 96361; 96374; 97162; 97167; 97530; 99285; Q9967

== ENCOUNTER 2024-05-18 22:36 | Inpatient (IN) | payer MEDICARE, SELFPAY ==
[2024-05-18 21:04] VITALS: BP 122/82
[2024-05-18 21:09] VITALS: BMI 21.7
[2024-05-18 21:23] LABS: % Basophils 0.2 % (0-2); % Eosinophils 0.1 % (0-6); % Immature Granulocytes 0.7 % (0-0.5); % Lymphocytes 5.6 % (20.5-51.1); % Monocytes 9.5 % (1.7-9.3); % Neutrophils 83.9 % (42.2-75.2); Absolute Immature Granulocytes 0.1 10^3/uL (0-0.05); Absolute Monocytes 1.6 10^3/uL (0.1-0.6); Absolute Neutrophils 14.3 10^3/uL (1.4-6.5); Hematocrit 40.6 % (39.0-52.0); Hemoglobin 13.4 g/dL (13.0-18.0); Mean Corpuscular Hgb 29.1 pg (27.0-31.0); Mean Corpuscular Volume 88.1 fL (80.0-94.0); Mean Platelet Volume 10.3 fL (7.4-10.4); Nucleated Red Blood Cells % 0 % (-); Platelet Count 287 10^3/uL (130-400); Red Blood Cell Count 4.61 10^6/uL (4.70-6.10); Red Cell Dist. Width 13.6 % (11.5-14.5); Urine Albumin 3+ (Neg - Trace); Urine Bilirubin Negative (Negative); Urine Character Slightly Cloudy (Clear); Urine Color Yellow; Urine Glucose Negative (Negative); Urine Ketone 1+ (Negative); Urine Leukocyte 3+ (Negative); Urine Nitrite Negative (Negative); Urine Occult Blood 4+ (Negative); Urine Urobilinogen Negative (Neg - 1+); White Blood Cell Count 17.1 10^3/uL (4.8-10.8)
[2024-05-18 21:29] LABS: Urine Squamous Cell 0-2 /LPF (Few)
[2024-05-18 21:30] LABS: Urine Bacteria Many (Negative); Urine Red Blood Cell >100 /HPF (0-2); Urine White Cell >100 /HPF (0-5)
--- NOTE | 2024-05-18 21:35 | ED.GENMED ---
Addendum entered and electronically signed by Wan Hoyt DO 05/18/24 22:38:
Reviewed with DEEJAY Rey changed large amount of urine output---900 cc bloody urine
Original Note:
History of Present Illness
General
Chief Complaint: Fever
Source: patient and records
Exam Limitations: non verbal-adult and altered mental status
Time Seen by Provider: 05/18/24 21:04
Nursing documentation reviewed up to this point in time: agreed with
History of Present Illness
History of Present Illness:
73-year-old male history of stroke recently admitted with sepsis presents with fever tachycardia cloudy urine
Past History
Past History
ED Past Medical History: CVA (Left MCA 2023), GERD, HTN, Hypercholesterolemia, Psychiatric and Other (DVT, IBS)
ED Past Surgical History: Orthopedic (Left subacromial decompression, right TKA) and Other (Bilateral bunionectomy)
Social History
Tobacco: Non-smoker
Alcohol: Chronic alcoholic
Drug: None
Personal:
Living: alone
Employment: Disabled
Family History
Family History: Other
Review of Systems
Review of Systems
Unable to obtain full review of systems at this time due to: non-verbal
Other source history: ambulance crew and transfer record
All Other Systems: Not applicable
Phy Exam
Physical Exam
Physical Exam:
Physical Exam
General: febrile ill-appearing male
Neck: Dry lips
Heart: Tachycardic
Lungs: Rhonchi about
Abdomen: Soft wearing a diaper Rey with lots of sediment
Neuro: Right-sided bleed
Skin: no rash
Psychiatric: Unable to assess
Extremities: Contractures
Sepsis
Sepsis Screening
Sepsis Assessment: Sepsis
Sepsis Screen
Sepsis Screen: Sepsis
Date: 05/18/24
Time: 22:28
Course
Orders/Labs/Results
Orders:
Orders
05/18/24 21:10
Electrocardiogram (*1) Urgent
Reason for Study: Other
Other Reason for Exam: Possible Sepsis
Cardiac Monitoring- Treatment ONCE
EKG- Treatment ONCE
IV Insert/Care/Rem.- Treatment PRN
O2 Therapy [RESP] Urgent
Titrate/Wean O2 to maintain O2 sat greater than (%): 93
Special Instructions: TO MAINTAIN CONTINUOUS O2 SATS > OR = 93%
Pulse Ox/cont/shift [RESP] Urgent
Quantity: 1
Special Instructions: CONTINUOUS
05/18/24 21:13
Complete Blood Count/With Diff Urgent
Comprehensive Metabolic Panel Urgent
Lactic Acid Q4H
Comment: ON ICE, CANCEL 2ND ORDER IF FIRST LACTIC ACID LEVEL <2
Urinalysis Reflex To Culture Urgent
Date Specimen was Collected: 05/18/24
Time Specimen was Collected: 21:10
Urine Microscopic Reflex Cult Urgent
Blood Culture Q20M
REHANA Source: Blood/Venous
Specimen Description:
Comment: Urgent from separate sites. If patient screens positive for possible sepsis
Blood Culture Q20M
RHEANA Source: Blood/Venous
Specimen Description:
Comment: Urgent from separate sites. If patient screens positive for possible sepsis
Urine Culture Urgent
REHANA Source: U
Specimen Description:
Date Specimen was Collected: 05/18/24
Time Specimen was Collected: 21:10
05/18/24 21:16
COVID-19 Antigen Urgent
Source: Nasal Swab
Influenza A+B Rapid Molecular Urgent
REHANA Source: Nasal Swab
Specimen Description:
05/18/24 21:25
0.9% Sodium Chloride 1000 ml [Nss] 1,000 ml IV BOLUS
Acetaminophen [Tylenol] 1,000 mg PO NOW STA
CR Chest Portable - 1 View Urgent
Comment:
Reason For Exam: fever
Reason Study Needs to be Portable: Patient Unstable
05/18/24 21:28
Rey Placement- Treatment ONCE
Reason for insertion: Outlet obstruction
05/18/24 22:06
Piperacillin/Tazo 2.25 Gram [Zosyn] 2.25 grams in 50 ml IV NOW
05/18/24 22:13
Admit/Transfer Patient As Directed
Co-Sign Provider:
Level of Care: Inpatient admission
Assign to:: Telemetry
Physician / Group: jackie
Diagnosis: urosepsis
Reason for Telemetry: Arrhythmia
Date to Stop Telemetry: 05/21/24
Time to Stop Telemetry: 11:00
Reason for Hospitalization: urosepsis
Expected length of stay greater than two midnights?: Yes
ELOS- Estimated Length of Stay in days: 3
I certify the patient meets the requirements for IP care: Yes
PRN Pain Medication Management As Directed
May give lesser potent ordered pain med per pt: Yes
preference::
Protocol:: Medication orders for pain may be administered in a
manner that supports deferring to patient preference
when the pt is:
- Requesting an ordered lesser potent pain medication.
Least to most potent pain medications are defined
as: acetaminophen < NSAID < tramadol < opioids
(morphine, oxycodone, hydromorphone).
- Requesting a lesser dose of the same medication IF
ORDERED.
- Requesting a less intrusive route of administration
if both routes are prescribed by the provider (PO <
IV).
05/18/24 22:15
Code Status As Directed
Resuscitation Status: Do not resuscitate
Reached after discussion with pt or family/Healthcare POA: Yes
DNR Bracelet Application ONCE
05/19/24 01:15
Lactic Acid Q4H
Comment: ON ICE, CANCEL 2ND ORDER IF FIRST LACTIC ACID LEVEL <2
05/21/24 11:00
DC Protocol for Telemetry ONCE
Abnormal Lab Results
05/18/24
21:13
WBC 17.1 H 10^3/uL
(4.8-10.8)
RBC 4.61 L 10^6/uL
(4.70-6.10)
Abs Immat Gran (auto) 0.1 H 10^3/uL
(0-0.05)
Absolute Neuts (auto) 14.3 H 10^3/uL
(1.4-6.5)
Absolute Lymphs (auto) 1.0 L 10^3/uL
(1.2-3.4)
Absolute Monos (auto) 1.6 H 10^3/uL
(0.1-0.6)
Immature Gran % 0.7 H %
(0-0.5)
Neutrophils % 83.9 H %
(42.2-75.2)
Lymphocytes % 5.6 L %
(20.5-51.1)
Monocytes % 9.5 H %
(1.7-9.3)
BUN 43 H mg/dl
(9-20)
Creatinine 2.1 H mg/dL
(0.7-1.3)
Glucose 136 H mg/dl
(70-99)
Total Protein 6.2 L g/dl
(6.3-8.2)
Urine Ketones 1+ A
(Negative)
Ur Occult Blood Reflex 4+ A
(Negative)
Leukocyte Esterase Rfl 3+ A
(Negative)
Urine RBC >100 A /HPF
(0-2)
Urine WBC (Reflex) >100 A /HPF
(0-5)
Urine Bacteria (Reflex) Many A
(Negative)
Urine Albumin (Reflex) 3+ A
(Neg - Trace)
05/18/24 21:13
05/18/24 21:13
Vital Signs
Initial and Last Documented VS:
Initial Vital Signs
Temp Pulse Resp BP Pulse Ox
100.8 F H 117 20 122/82 95
05/18/24 21:04 05/18/24 21:04 05/18/24 21:04 05/18/24 21:04 05/18/24 21:04
Last Documented Vital Signs
Temp Pulse Resp BP Pulse Ox
100.8 F H 117 20 122/82 95
05/18/24 21:04 05/18/24 21:04 05/18/24 21:04 05/18/24 21:04 05/18/24 21:04
MDM/Problems Addressed
Differential Diagnosis Includes:
Sepsis bacteremia viral syndrome influenza pneumonia
MDM/Problems Addressed:
Fever confusion
Chronic conditions affecting care: DM, Neurological disorder and Psychiatric illness
Acute Exacerbation and/or Progression of Chronic Illness: DM, Neurological disorder and Psychiatric illness
*Radiology
Radiology exam reviewed: preliminary read by ED provider
*Pulse Oximetry
Patient hypoxic: yes
*EKG
Interpreted by ED Provider?: Yes
Comparison EKG: no comparison EKG present
Heart Rate: 78
Rate: normal
Rhythm: sinus
Ischemia: non-specific ST changes
*B2[employer] Managed Service Sales Exec Interpretation
Rate: normal
Interpretation: normal
Heart Rate: 78
Rhythm: sinus
*Critical Care Note
Total Time (30-74mins, 75-104mins- exclusive of procedures): 31
Data Reviewed
Review of Other/Old Records Reveals: Labs, Progress Notes and Discharge Summary
Source: patient and records
Further Testing Considered But Not Given:
CT scan
Update Note
Update Note:
Patient with a sepsis syndrome likely urinary source prior urine culture noted plan will be volume resuscitation, broad-spectrum antibiotics change at his Rey chest x-ray viral swabs
CRITICAL CARE STATEMENT: A total of 30 minutes of critical care time was provided for this patient. This includes management of unstable vital signs, evaluation of the patient at bedside, reviewing the patient's pertinent medical records discussion
with EMS providers and patient's family in addition to discussion with consultants, review of old EKGs and review of pertinent medical records. This time with separate from time utilized to perform the aforementioned documented procedures
ED Attending Note
-
Portions of this chart may have been created with voice recognition software.� Occasional wrong word or��sound alike� substitutions may have occurred due to the inherent limitations of voice recognition software.
Discharge Plan
Departure
Patient Disposition: Admit
Date of Disposition: 05/18/24
Time of Disposition: 21:52
Admit to: Telemetry
Presentation/result/management discussed w/ accepting MD/DO: Hospitalist
Patient with high blood pressure during this ER visit?: No
Condition: Serious
Covid-19: Not Applicable
Discharge Problem:
Sepsis, unspecified organism, Right hemiparesis, Acute UTI, Urinary tract infection, site not specified, Toxic metabolic encephalopathy, Hemiparesis affecting right side as late effect of cerebrovascular accident, PAOLO (acute kidney injury)
Prescriptions:
No Action
lamotrigine 200 MG tablet
200 mg PO DAILY
lisinopril 40 MG tablet
40 mg PO DAILY
meloxicam 7.5 mg Tablet
7.5 mg PO DAILY
Janumet 50-500 mg Tablet
1 tab PO BID
thiamine HCl (vitamin B1) 100 MG tablet
100 mg PO DAILY
tamsulosin 0.4 mg Capsule
0.4 mg PO DAILY Qty: 1 0RF
atorvastatin 80 mg Tablet
80 mg PO HS
acetaminophen 325 mg Tablet
650 mg PO Q6HPRN PRN (Reason: FEVER>100/MILD PAIN)
cyanocobalamin (vitamin B-12) 1,000 mcg Tablet
1,000 mcg PO DAILY
diphenoxylate-atropine 2.5-0.025 mg Tablet
1 tab PO Q6HPRN PRN (Reason: DIARRHEA)
amlodipine 5 mg Tablet
5 mg PO DAILY
magnesium hydroxide [Milk of Magnesia] 400 mg/5 mL Suspension
2,400 mg PO [id number] PRN (Reason: NO BM FOR 3 DAYS)
bisacodyl 10 mg Suppository
10 mg OK DAILYPRN PRN (Reason: MOM INEFFECTIVE)
Fleet Enema 19-7 gram/118 mL Enema
118 ml OK DAILYPRN PRN (Reason: BISACODYL INEFFECTIVE)
aspirin 81 mg Tablet,Chewable
81 mg PO DAILY
aripiprazole 10 mg Tablet
10 mg PO DAILY
Basaglar Tempo Pen(U-100)Insln 100 unit/mL (3 mL) Insulin Pen, Sensor
12 unit SC HS
melatonin 5 MG tablet
5 mg PO HS
bupropion HCl 300 mg Tablet Extended Release 24 Hr
300 mg PO DAILY
Referrals:
Silas Crooks DO [Family Provider] -
Interventions
Interventions:
*Risk Screen - Suicide Last Done: 05/18/24 21:04
*General Assessment Last Done: 05/18/24 21:04
*Neglect/Abuse Screening Last Done: 05/18/24 21:04
*ED- Fall Risk Assessment Last Done: 05/18/24 21:11
Discharge Date and Time
Print Language: MACANESE
[2024-05-18 21:36] LABS: ALT (SGPT) 18 U/L (0-50); AST (SGOT) 21 U/L (17-59); Albumin 3.6 g/dl (3.5-5.0); Alkaline Phosphatase 85 U/L (38-126); Blood Urea Nitrogen 43 mg/dl (9-20); Calcium 9.1 mg/dl (8.4-10.2); Carbon Dioxide 23 mmol/L (22-30); Chloride 106 mmol/L (98-107); Estimated Creatinine Clearance 32 ml/min; Glucose 136 mg/dl (70-99); Lactic Acid 1.8 mmol/L (0.7-2.0); Potassium 4.2 mmol/L (3.5-5.1); Sodium 140 mmol/L (135-145); Total Bilirubin 0.7 mg/dl (0.2-1.3); Total Protein 6.2 g/dl (6.3-8.2); eGFR 32.83
[2024-05-18] MEDS: TYLENOL 1000 MG PO (21:36)
[2024-05-18] MEDS: NSS 1000 IV (21:37)
[2024-05-18 21:39] LABS: COVID-19 Antigen Negative (Negative)
--- NOTE | 2024-05-18 21:55 | HPS.HSE ---
Family Physician
-
Family Physician: Silas Crooks DO
Chief Complaint
-
hematuria
History of Present Illness
73 year old with PMH for CVA and left sided weakness, expressive aphasia, IDDM, HLD, HTN, depression presented with bloody urine. ROS limited as patient is aphasic. patient not able to provide any meaningful history. upon arrival he was not septic.
received a dose of Zosyn in ER. admitting for further management.
Medical History
Past Medical History
Past Medical History: Reports Other
Additional Past Medical History:
HTN
Bladder dysfunction
type 2 DM
HLD
cerebral infarction
depression
DVT
GERD
IBS
Past Surgical History: Reports Other
Additional Past Surgical History:
thrombectomy
Social History
Unable to obtain full social history at this time due to: Acuity
Family History
Family History: Not pertinent
Allergies / Home Medications
Allergies reflects when Allergies were last updated in [facility].
Home Medications with original date entered in [facility]
Allergy/Medication List:
Allergies
Allergy/AdvReac Type Severity Reaction Status Date / Time
influenza virus vaccine, Allergy made him Verified 05/18/24 22:07
specific sick and
got the flu
steri strips Allergy Rash Uncoded 04/14/24 14:02
Home Medications
lamotrigine 200 mg tablet 200 mg PO DAILY Mental Health/Anxiety 09/10/20
lisinopril 40 mg tablet 40 mg PO DAILY Blood pressure 09/10/20
meloxicam 7.5 mg tablet 7.5 mg PO DAILY Sleep 04/14/24
sitagliptin phosphate 50 mg-metformin 500 mg tablet (Janumet) 1 tab PO BID Diabetes 04/14/24
thiamine HCl (vitamin B1) 100 mg tablet 100 mg PO DAILY Supplement 04/15/24
tamsulosin 0.4 mg capsule 0.4 mg PO DAILY #1 cap 04/19/24
acetaminophen 325 mg tablet 650 mg PO Q6HPRN PRN FEVER>100/MILD PAIN 05/18/24
amlodipine 5 mg tablet 5 mg PO DAILY 05/18/24
aripiprazole 10 mg tablet 10 mg PO DAILY 05/18/24
aspirin 81 mg chewable tablet 81 mg PO DAILY 05/18/24
atorvastatin 80 mg tablet 80 mg PO HS 05/18/24
bisacodyl 10 mg rectal suppository [address] DAILYPRN PRN MOM INEFFECTIVE 05/18/24
bupropion HCl 300 mg 24 hr tablet, extended release 300 mg PO DAILY 05/18/24
cyanocobalamin (vitamin B-12) 1,000 mcg tablet 1,000 mcg PO DAILY 05/18/24
diphenoxylate-atropine 2.5 mg-0.025 mg tablet 1 tab PO Q6HPRN PRN DIARRHEA 05/18/24
insulin glargine 100 unit/mL (3 mL) subcutaneous pen, sensor (Basaglar Tempo Pen (U-100) Insulin) 12 unit SC HS 05/18/24
magnesium hydroxide 400 mg/5 mL oral suspension (Milk of Magnesia) 2,400 mg PO [id number] PRN NO BM FOR 3 DAYS 05/18/24
melatonin 5 mg tablet 5 mg PO HS 05/18/24
sodium phosphates 19 gram-7 gram/118 mL enema (Fleet Enema) [address] DAILYPRN PRN BISACODYL INEFFECTIVE 05/18/24
Review of Systems
-
Unable to obtain full review of systems at this time due to: Acuity
Physical Exam
Vital Signs
Vital Signs
Temp Pulse Resp BP Pulse Ox
100.8 F H 117 20 122/82 95
05/18/24 21:04 05/18/24 21:04 05/18/24 21:04 05/18/24 21:04 05/18/24 21:04
Physical Exam
General: Well Developed, Well Nourished and No Apparent Distress
HEENT: NormoCephalic, Moist mucous membranes and Atraumatic
Respiratory: Clear
Cardiac: S1/S2 and Regular Rhythm; No Murmur or Rub
GI: Soft, Non Tender, Non Distended and Normal Bowel Sounds; No Organomegaly
Rectal: Deferred by Provider
Genito-urinary: Rey (bloody urine)
Musculoskeletal: No Clubbing, No Cyanosis and No Edema
Skin: No Rash
Neuro: Nonfocal/grossly intact
Psych: Calm
Laboratory Results
-
05/18/24 21:13
05/18/24 21:13
Laboratory Results
Lactic Acid 1.8 mmol/L (0.7-2.0) 05/18/24 21:13
Total Bilirubin 0.7 mg/dl (0.2-1.3) 05/18/24 21:13
AST 21 U/L (17-59) 05/18/24 21:13
ALT 18 U/L (0-50) 05/18/24 21:13
Alkaline Phosphatase 85 U/L (38-126) 05/18/24 21:13
Data Reviewed
-
Lab Data: Labs Reviewed by me
Impression/Plan
-
#urosepsis
-wbc 17.1, HR 117, temp 100.8
iv Zosyn continued
-Tylenol prn for fever
-fluids continued
-ID consulted
-blood and urine culture sent from Er
-COVID flu negative.
#acute kidney injury likely dehydration
-cr 2.1
-normal saline continued
-BMp in am
##IDT2DM
- C/w basal insulin 5U and LDISS
- Hold Janumet for now.
#History of CVA - Right sided hemiparalysis w/ residual left sided weakness/expressive aphasia. Unable to ambulate. c/w aspirin
#Hypercholesterolemia - c/w atorvastatin
-speech consulted
#Essential Hypertension
-Norvasc continued
-hold lisinopril due to PAOLO
#depression
-Abilify,Bupropion continued
#urinary retention with chronic Rey in place
-Flomax continued
#HLD
-statin continued
DVT Ppx - on heparin
Code Status - DNR
[2024-05-18 22:00] VITALS: BP 125/70
--- NOTE | 2024-05-18 22:15 | W.PN.UPDATE ---
Update Note
Progress Note Update
Patient seen in conjunction with DISPATCHER RADIO. I agree with the findings of history and physical. I concur with the assessment and plan.
Briefly this is a 73-year-old with past medical history significant for CVA with residual right-sided weakness, neurogenic bladder, Parkinson, hypertension, hyperlipidemia, likely BPH will comes into the emergency department with fever from his
senior living facility.
Patient unable to provide much history secondary to chronic aphasia. Per records, patient was seen in the hospital at the end of March for acute retention with urinary tract infection with toxic metabolic encephalopathy. Urology saw the patient
was felt to have likely neurogenic bladder but obstruction could not be ruled out based on the ultrasound. He had a voiding trial that failed and patient was discharged on chronic urinary catheter. He was to follow-up with urology for repeat
voiding trial and urodynamic study as an outpatient. Patient completed a 5-day course of IV ceftriaxone.
Did not on arrival in the emergency department patient had a bloody output from his urinary cath. He denies feeling any pain or pressure. En route to the emergency department he had been given 1 L of normal saline.
Here in the ED he had a temp 100.8, he was satting 96% on room air, blood pressure was 120/80 with a pulse of 117. ECG showed sinus tachycardia at a rate of 114. Troponin negative. He had a white count of 17,000 but otherwise her CBC is
unremarkable with a normal hemoglobin of 13.4. He is labs are notable for creatinine of 2.1 from 0.6. UA was markedly positive with leukocyte esterase and pyuria with bacteriuria. COVID and flu test are negative. Chest x-ray pending.
Symptom plan
Patient with recent diagnosis of urinary retention likely secondary to neurogenic bladder versus obstruction status post indwelling catheter at this time presenting with fever tachycardia and a positive urinalysis. He does have hematuria grossly
examination. Abdomen was otherwise benign. Chest was clear to auscultation without hypoxia. He is tachypneic likely secondary to fever. A chest x-ray is pending. Suspect complex UTI with sepsis. No shock.
- admit to telemetry to monitor tachycardia, no hypotension so far
- blood cultures sent, urine cultures sent
- IV zosyn for now based on recent hospital admission with sensitive E - feacalis. Also h/o sensitive Klebsiella UTI
- ID consultation
- 2 L NS given, continue IV fluids overnight
Hematuria- blood and clots in old bag with gross hematuria in tube
- urinary catheter replaced with gross hematuria without clots, however gross hematuria resolved after few minutes and cloudy output noted.
- monitor bladder scar for jackson obstruction
- treat for hemorrhagic cystitis secondary to infection, if hemorrhage stays clear, can continue with his outpatient urology for cystoscopy, otherwise get urology consult
- continue tamsulosin
DM II - continue home regimen
- sliding scale insulin
- lantus 10 hs
Diet
-
HTN
- hold lisinopril
- amlodipine with hold parameters
PAOLO - obstruction vs sepsis induced paolo
- urine output brisk after jackson exhchange, no signs of acute obstruction
- bladder scan prn
- monitor i/o
- iv fluids
- holding lisinopril and metformin/janumet
DVT PPX - hep sq
Code status - DNR
[2024-05-18] MEDS: ZOSYN 50 IV (22:21)
[2024-05-18 23:00] VITALS: BP 167/89
[2024-05-19] VITALS (8 sets, daily range): BP systolic 98–142; BP diastolic 51–70; O2SAT 94; BMI 21.6
[2024-05-19 00:33] LABS: Glucose - Point of Care 91 mg/dl (70-99)
--- NOTE | 2024-05-19 00:35 | PTCARENOTE ---
Patient brought to unit from ED. He was a tap puller from transport stretcher to his bed. Patient was drowsy and lethargic but arousable to verbal and tactile stimulation. Obtained vitals. Patient made comfortable in bed. IV fluids started.
[2024-05-19] MEDS: NSS 1000 IV ×2 (00:52→10:38)
[2024-05-19] MEDS: ZOSYN 50 IV ×4 (03:35→21:33)
--- NOTE | 2024-05-19 06:13 | PTCARENOTE ---
Upon morning rounds, patient's jackson found to be empty despite IVF infusing @ 100mls/hr. Patient bladder scanned for 250ml. OFFICE SYSTEM ANALYST Quynh Dominique notified and up to assess patient. Orders placed to hand irrigate jackson for no output. OFFICE SYSTEM ANALYST and this RN hand
irrigated jackson for large amounts thick, cloudy foul smelling orange-brown urine. Patient's jackson continues to drain minimal amounts, requiring hand irrigation.
[2024-05-19 06:18] LABS: Glucose - Point of Care 81 mg/dl (70-99)
[2024-05-19 08:10] LABS: Hematocrit 37.2 % (39.0-52.0); Hemoglobin 12.1 g/dL (13.0-18.0); Mean Corp Hgb Conc. 32.5 g/dL (33.0-37.0); Mean Corpuscular Hgb 29.1 pg (27.0-31.0); Mean Corpuscular Volume 89.4 fL (80.0-94.0); Mean Platelet Volume 10.4 fL (7.4-10.4); Platelet Count 227 10^3/uL (130-400); Red Blood Cell Count 4.16 10^6/uL (4.70-6.10); Red Cell Dist. Width 13.7 % (11.5-14.5); White Blood Cell Count 11.8 10^3/uL (4.8-10.8)
[2024-05-19 08:57] LABS: Glycohemoglobin (HgbA1c) 5.9 % (4.0-5.6)
[2024-05-19] MEDS: HEPARIN 5000 UNITS SC ×2 (10:37→19:47)
--- NOTE | 2024-05-19 12:35 | W.PN.HOSP.TC ---
Today's Communication/Plan
-
Continue IV Zosyn and follow cultures
Hold amlodipine
Maintenance IVF
Trend BMP and UOP
Monitor for recurrence of gross hematuria
Assessment / Plan
Assessment / Plan
#Sepsis secondary to UTI/cystitis
#Acute urine retention with history of neurogenic bladder and BPH
#Gross hematuria with clots
-Presented as fever found to have urine retention but history limited by chronic aphasia
-Recently hospitalized in April 09 with acute urine retention and UTI complicated by encephalopathy
-Urology at that time suspected neurogenic bladder but cannot rule out obstruction, was DC'd with chronic Rey
-Was recommended to follow-up OP with urology, return with gross hematuria and clots with retention
-Rey catheter was changed and patient able to produce UOP, urine this morning yellow with slight blood tinge
-Was started on IV Zosyn upon admission prior to urine and blood cultures
-ID consulted, recommendations appreciated
Plan
-Continue IV Zosyn and follow-up urine and blood cultures
-Continue IV maintenance fluid
-Maintain Rey catheter and continue tamsulosin
-Trend CBC and temperature curve
-Consider CT A/P without contrast
-Urology consult if gross hematuria recurrent
#Postrenal PAOLO
-Highly suspicious this occurred due to obstruction with Rey catheter, blood clots in Rey bag
-Baseline creatinine near 0.7, presented with creatinine 2.1 and BUN 43; UOP improved after Rey change
-No repeat labs since time of admission though suspect this is improving with good UOP today
-Will continue to trend BMP on IV maintenance fluids
-Avoid unnecessary nephrotoxins
#T2DM
-Insulin-dependent; Home regimen includes Lantus 12 units nightly, as well as Janumet
-No known history of associated microvascular
-Janumet held, added on ISS upon admission
-Blood glucose goal 140-180
#Primary HTN
-Home medications include lisinopril and amlodipine
-No known history of hypertensive systemic disease
-Blood pressure here currently well-controlled
-Holding amlodipine for now due to soft BP
#H/O CVA with residual right sided weakness
-Unclear etiology; no known history of AF/AFL; possibly cerebrovascular in origin
-Home regimen includes high intensity statin and baby aspirin
#H/O DVT not on AC
DVT prophylaxis: Subcutaneous heparin
Diet: N.p.o.; CUTTER HEAD SHARPENER following
CODE STATUS: DNR
Anticipated Discharge: > 48 hours
Subjective/Interval History
-
Date of Service: May 19, 2024
Seen and examined at the bedside. No acute events reported overnight. AFVSS this morning
Urine output improved following change of Rey. Currently with mostly yellow urine with a slight orange tinge
Patient appears encephalopathic, unable to answer questions
Objective Data
-
Labs:
Laboratory Results
05/19/24
07:50
WBC 11.8 H
Hgb 12.1 L
Hct 37.2 L
Plt Count 227 D
Vital Signs:
Vital Signs
Temp Pulse Resp BP Pulse Ox
98.0 F 86 20 111/56 100
05/19/24 11:21 05/19/24 11:21 05/19/24 11:21 05/19/24 11:21 05/19/24 11:31
I&O
05/18/24 05/19/24 05/20/24
06:59 06:59 06:59
Intake Total 0 / 0 50 / 50
Output Total 800 / 800
Balance -800 / -800 50 / 50
Review of Systems
-
History Source: Patient
All other systems: Reviewed and negative
Physical Exam
-
General: Well Developed, No Apparent Distress and Comfortable
HEENT: Normocephalic, Atraumatic and Moist Mucous Membranes
Respiratory: Clear to Auscultation and Non Labored Respirations
Cardiac: Regular Rhythm and S1/S2; Negative Murmur, Rub or Gallop
GI: Soft, Nontender, Nondistended and Normal Bowel Sounds
Genito-urinary: Rey and Other (Yellow-orange urine)
Musculoskeletal: No Clubbing, No Cyanosis and No Edema
Skin: Warm and Dry; Negative Rash
Neuro: Awake, Alert, Oriented and Nonfocal/Grossly Intact
Psych: Calm
Data Reviewed
-
Labs: Labs Reviewed by me
--- NOTE | 2024-05-19 13:01 | CON.ID ---
Consultation
-
Date/Time Consultation Requested: 05/19/2024 0022
Date/Time Consultation Performed: 05/19/2024 1245
Requesting Provider: Mary Steward
Performing Provider: Dr. Swanson
Reason for Consultation: Complicated urinary tract infection
Chief Complaint / Past History
History of Present Illness
Kieran Walsh is a 73-year-old man being evaluated at the request of Mary Steward regarding complicated urinary tract infection. History is obtained from chart review, along with patient interview.
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 Additionally, he has a component of aphasia, but can provide simple history. Additional history was obtained from the patient's friend who is at the bedside.
The patient was admitted to [facility] in late March for confusion. Ultimately he was found to have sepsis secondary to UTI, with cultures revealing Enterococcus faecalis.
He presents back to [facility] on 05/18 from his nursing facility secondary to tachycardia, along with cloudy and bloody urine. Workup in the ER revealed a leukocytosis, along with an isolated fever. He was started on empiric antibiotics,
and Infectious Diseases is asked to comment upon further antimicrobial management.
At this time, he denies any pain. He denies any headache. He denies any chest discomfort, cough or congestion. He denies any abdominal pain, nausea or vomiting. He denies any suprapubic pain or flank pain.
Past History
Additional Past Medical History:
HTN
Urinary retention
DM
Dyslipidemia
Hx CVA (2014)
Aphasia
Depression
GERD
IBS
Dysphagia
Past Surgical History: None
Allergy History:
influenza virus vaccine, specific Allergy (Verified 05/18/24 22:07)
made him sick and got the flu
steri strips Allergy (Uncoded 04/14/24 14:02)
Rash
Medications Reviewed: Yes
Current Antibiotics:
Zosyn 2.25 g IV every 6 hours
Social History
Tobacco: Non-Smoker
Alcohol: None
Drug: None
Living: [facility]
Employment: Disabled
Family History
Family History: Not Pertinent
Review of Systems
Vital Signs
Temp Pulse Resp BP Pulse Ox
98.0 F 86 20 111/56 100
05/19/24 11:21 05/19/24 11:21 05/19/24 11:21 05/19/24 11:21 05/19/24 11:31
Physical Exam
Physical Exam
Constitutional: No Acute Distress, Comfortable, Chronically Ill and Non-toxic
Eyes: No Conjunctival Hemorrhage and Sclera Anicteric
Oral: No Thrush and No Ulcers
Cardiovascular: S1/S2; Negative S3/S4 or Murmur
Pulmonary: Clear; Negative Wheezes, Rales or Rhonchi
Gastrointestinal: Soft, Non Tender, Non Distended and Normal Bowel Sounds
Genito-Urinary: Rey, Clear Urine and Other (Some blood noted at meatus); Negative Hematuria
Extremities: Negative Edema, Cyanosis or Erythema
Neurological: Awake and Alert
Psychological: Calm
.
Lab / Diagnostic Study Results
05/19/24 07:50
05/18/24 21:13
Abs Immat Gran (auto) 0.1 10^3/uL (0-0.05) H 05/18/24 21:13
Absolute Neuts (auto) 14.3 10^3/uL (1.4-6.5) H 05/18/24 21:13
Absolute Lymphs (auto) 1.0 10^3/uL (1.2-3.4) L 05/18/24 21:13
Absolute Monos (auto) 1.6 10^3/uL (0.1-0.6) H 05/18/24 21:13
Absolute Basos (auto) 0.0 10^3/uL (0-0.2) 05/18/24 21:13
Immature Gran % 0.7 % (0-0.5) H 05/18/24 21:13
Neutrophils % 83.9 % (42.2-75.2) H 05/18/24 21:13
Lymphocytes % 5.6 % (20.5-51.1) L 05/18/24 21:13
Monocytes % 9.5 % (1.7-9.3) H 05/18/24 21:13
Eosinophils % 0.1 % (0-6) 05/18/24 21:13
Basophils % 0.2 % (0-2) 05/18/24 21:13
Lactic Acid Cancelled 05/19/24 01:15
Ur Squamous Epith Cells 0-2 /LPF (Few) 05/18/24 21:13
Microbiology Results
Micro:
05/18/24 21:16 Influenza Types A & B (CRISTIANO) - Final
Nasal Swab Negative for Influenza A & B, NAAT
Negative results must be combined with clinical observations
and patient history.
Nucleic Acid Amplification test (NAAT)performed on the
[email or web address] ID NOW platform.
05/18/24 21:13 Urine Culture - Pending
Urine
05/18/24 21:13 Blood Culture - Pending
Blood/Venous
05/18/24 21:13 Blood Culture - Pending
Blood/Venous
Imaging:
04/18/2024 CT abdomen/pelvis with contrast: Empty urinary bladder containing Rey catheter/balloon. Findings suggesting diffuse thickening of the wall of the urinary bladder such as cystitis. Prostate gland likely not enlarged, difficult to measure
with this imaging modality particularly due to adjacent/contiguous unopacified urinary bladder. If prostate gland with measurement is warranted, consider dedicated Endorectal Prostate ultrasound.
Assessment / Plan
Reported hematuria
Leukocytosis
Suspected complicated urinary tract infection
Fever
PAOLO
HTN
Urinary retention; Hx chronic Rey catheter
DM
Dyslipidemia
Hx CVA (2015)
Aphasia
Depression
GERD
IBS
Dysphagia
Recommendations:
White count noted to be improved today.
No further fevers.
Urine culture and blood cultures are pending.
Continue with empiric Zosyn for today.
Given PAOLO, will check renal ultrasound
Monitor white count and temperature curve, along with pending cultures.
Further recommendations as additional data is returned.
--- NOTE | 2024-05-19 13:45 | PTCARENOTE ---
Patient currently awake and alert, sitting up in bed in chair position. Speech therapy notified to facilitate evaluation as per order. Note patient was too lethargic this morning to participate in speech therapy.
--- NOTE | 2024-05-19 14:44 | CM ---
hardware engineering manager reviewed patient's chart and patient resides at [facility], as a LTC patient, patient requires assist with adl's and requires assist of one to stand and pivot to w/c, patient to return to [facility] when
stable.
[facility]
Report [id number]
--- NOTE | 2024-05-19 15:24 | PTOTSP ---
Speech Therapy Evaluation:
Pt exhibits clinical signs of oropharyngeal dysphagia, likely chronic related to prior CVA compounded by lethargy in the setting of sepsis secondary to UTI. No overt s/sx of aspiration across PO trials, however pt remains at increased risk for
aspiration and related complications given waxing/waning mentation and limited mobility. CXR without PNA. WBC elevated (likely related to UTI).
Recommend:
1. Initiation of IDDSI Level 7 Regular, thin liquids
2. Medications as best tolerated
3. Aspiration precautions: 1:1 assistance; Upright positioning; Small sips/bites; Slow rate of intake; Ensure patient swallows prior to next bite
4. Monitor for signs of aspiration and d/c oral diet if any decline in mental/respiratory status
5. Oral care 3x/day
6. ST to follow to monitor tolerance of diet and determine if pt would benefit from VSE.
[2024-05-19] MEDS: ABILIFY PO (15:28)
[2024-05-19] MEDS: FLOMAX PO (15:29)
[2024-05-19] MEDS: NORVASC PO (15:29)
[2024-05-19] MEDS: LAMICTAL PO (15:29)
[2024-05-19] MEDS: LOW STRENGTH ASPIRIN PO (15:29)
[2024-05-19] MEDS: WELLBUTRIN XL (24 hour extended release) PO (15:30)
[2024-05-19] MEDS: VITAMIN B1 PO (15:30)
[2024-05-19] MEDS: VITAMIN B-12 PO (15:30)
[2024-05-19 15:36] LABS: Glucose - Point of Care 64 mg/dl (70-99)
[2024-05-19] MEDS: DEXTROSE 50% SYRINGE 12.5 GRAMS IV (15:38)
[2024-05-19 16:01] LABS: Glucose - Point of Care 137 mg/dl (70-99)
[2024-05-19 17:24] LABS: Glucose - Point of Care 129 mg/dl (70-99)
[2024-05-19] MEDS: LR 1000 IV (18:51)
[2024-05-19 21:16] LABS: Glucose - Point of Care 85 mg/dl (70-99)
[2024-05-19] MEDS: MELATONIN 5 MG PO (21:33)
[2024-05-19] MEDS: LIPITOR 80 MG PO (21:33)
[2024-05-19] MEDS: LANTUS 0.05 UNITS SC (21:35)
[2024-05-20] VITALS (7 sets, daily range): BP systolic 121–140; BP diastolic 66–88; PULSE 90; O2SAT 98; BMI 21.9
[2024-05-20 03:24] LABS: Glucose - Point of Care 89 mg/dl (70-99)
[2024-05-20] MEDS: ZOSYN 50 IV ×4 (04:34→23:59)
[2024-05-20] MEDS: LR 1000 IV (05:58)
[2024-05-20 07:17] LABS: % Basophils 0.7 % (0-2); % Eosinophils 3.5 % (0-6); % Immature Granulocytes 1.8 % (0-0.5); % Lymphocytes 19.7 % (20.5-51.1); % Monocytes 8.5 % (1.7-9.3); % Neutrophils 65.8 % (42.2-75.2); Absolute Basophils 0.1 10^3/uL (0-0.2); Absolute Eosinophils 0.3 10^3/uL (0-0.7); Absolute Immature Granulocytes 0.2 10^3/uL (0-0.05); Absolute Lymphocytes 1.8 10^3/uL (1.2-3.4); Absolute Monocytes 0.8 10^3/uL (0.1-0.6); Absolute Neutrophils 5.9 10^3/uL (1.4-6.5); Hematocrit 32.1 % (39.0-52.0); Hemoglobin 10.9 g/dL (13.0-18.0); Mean Corpuscular Hgb 29.9 pg (27.0-31.0); Mean Corpuscular Volume 88.2 fL (80.0-94.0); Mean Platelet Volume 10.3 fL (7.4-10.4); Nucleated Red Blood Cells % 0 % (-); Platelet Count 235 10^3/uL (130-400); Red Blood Cell Count 3.64 10^6/uL (4.70-6.10); Red Cell Dist. Width 13.6 % (11.5-14.5); White Blood Cell Count 8.9 10^3/uL (4.8-10.8)
[2024-05-20 07:50] LABS: Blood Urea Nitrogen 19 mg/dl (9-20); Calcium 8.5 mg/dl (8.4-10.2); Carbon Dioxide 27 mmol/L (22-30); Chloride 107 mmol/L (98-107); Estimated Creatinine Clearance 93 ml/min; Glucose 83 mg/dl (70-99); Potassium 3.5 mmol/L (3.5-5.1); Sodium 138 mmol/L (135-145); eGFR > 60.00
[2024-05-20 07:55] LABS: Glucose - Point of Care 73 mg/dl (70-99)
[2024-05-20] MEDS: FLOMAX 0.4 MG PO (08:47)
[2024-05-20] MEDS: LAMICTAL 200 MG PO (08:47)
[2024-05-20] MEDS: VITAMIN B1 100 MG PO (08:47)
[2024-05-20] MEDS: ABILIFY 10 MG PO (08:47)
[2024-05-20] MEDS: NOVOLOG FLEXPEN-LOW RESISTANCE SC ×3 (08:47→17:19)
[2024-05-20] MEDS: VITAMIN B-12 1000 MCG PO (08:47)
[2024-05-20] MEDS: WELLBUTRIN XL (24 hour extended release) 300 MG PO (08:47)
[2024-05-20] MEDS: LOW STRENGTH ASPIRIN 81 MG PO (08:48)
[2024-05-20] MEDS: HEPARIN 5000 UNITS SC ×2 (08:48→19:41)
--- NOTE | 2024-05-20 08:55 | PN.CDI ---
CDI
- -
CDI:
Physician Documentation Request
Admit Date: 05/18/24 22:36
Dear Doctor José,
Patient admitted for sepsis.
05/19 Hospitalist PN: 'Sepsis secondary to UTI/cystitis #Acute urine retention with history of neurogenic bladder and BPH...was DC'd with chronic Jackson...Jackson catheter was changed and patient able to produce UOP'
Please clarify the relationship between these conditions:
Yes, UTI is related to/associated with/due to jackson catheter.
No, UTI is not related to/associated with/due to jackson catheter but it is due to ___. (Please specify)
Unable to determine
Use of terms such as suspected, likely, concern for, or probable (associated with a specific diagnosis that is being evaluated, monitored, or treated as if it exists) are acceptable and can be coded in the inpatient setting, when documented at the
time of discharge.
Thank you,
Sari Godinez RN, BSN
CDI Specialist
Available via [place] text
Please use your independent medical judgment in providing your response.
--- NOTE | 2024-05-20 10:41 | W.PN.ID1 ---
Date of Service
Date of Service: May 20, 2024
Today's Communication
Continue Zosyn
Assessment / Plan
Reported hematuria
Leukocytosis -resolved
Suspected complicated urinary tract infection
Fever -resolved
PAOLO
HTN
Urinary retention; Hx chronic Rey catheter
DM
Dyslipidemia
Hx CVA (2014)
Aphasia
Depression
GERD
IBS
Dysphagia
Recommendations:
blood cultures neg to date
Ucx pending.
Renal US mildly thickened bladder wall.
Continue with empiric Zosyn
Monitor white count and temperature curve, along with pending cultures.
Further recommendations as additional data is returned.
Chief Complaint
-: UTI
Subjective / Review of Systems
Comfortable
Vital Signs / Physical Exam
Vital Signs
Vital Signs
Temp Pulse Resp BP Pulse Ox
98.5 F 82 18 137/73 98
05/20/24 07:03 05/20/24 07:03 05/20/24 07:03 05/20/24 07:03 05/20/24 07:03
Physical Exam
Constitutional: No Acute Distress
Pulmonary: Clear
Gastrointestinal: Soft, Non Tender and Non Distended
Genito-Urinary: Rey and Clear Urine
Objective Data
Lab Data
Lab Results
05/20/24 07:06
05/20/24 07:06
Estimated Creat Clear 93 ml/min 05/20/24 07:06
Lactic Acid Cancelled 05/19/24 01:15
Total Bilirubin 0.7 mg/dl (0.2-1.3) 05/18/24 21:13
AST 21 U/L (17-59) 05/18/24 21:13
ALT 18 U/L (0-50) 05/18/24 21:13
Alkaline Phosphatase 85 U/L (38-126) 05/18/24 21:13
Most recent labs reviewed.
Micro Results:
05/18/24 21:13 Blood Culture - Preliminary
Blood/Venous No Growth in 24 hours- Final report to follow
05/18/24 21:13 Blood Culture - Preliminary
Blood/Venous No Growth in 24 hours- Final report to follow
05/18/24 21:16 Influenza Types A & B (CRISTIANO) - Final
Nasal Swab Negative for Influenza A & B, NAAT
Negative results must be combined with clinical observations
and patient history.
Nucleic Acid Amplification test (NAAT)performed on the
[employer] platform.
05/18/24 21:13 Urine Culture - Pending
Urine
Imaging:
04/18/2024 CT abdomen/pelvis with contrast: Empty urinary bladder containing Rey catheter/balloon. Findings suggesting diffuse thickening of the wall of the urinary bladder such as cystitis. Prostate gland likely not enlarged, difficult to measure
with this imaging modality particularly due to adjacent/contiguous unopacified urinary bladder. If prostate gland with measurement is warranted, consider dedicated Endorectal Prostate ultrasound.
--- NOTE | 2024-05-20 11:18 | W.PN.HOSP.TC ---
Today's Communication/Plan
-
Continue IV Zosyn and follow cultures
Maintain Rey catheter
Monitor BMP
PT/OT
Assessment / Plan
Assessment / Plan
#Sepsis secondary to CAUTI (Rey present SEARCH MARKETING COORDINATOR)
#Acute urine retention with history of neurogenic bladder and BPH
#Gross hematuria with clots
-Recently hospitalized in April 09 with acute urine retention and UTI complicated by encephalopathy
-Urology at that time suspected neurogenic bladder but cannot rule out obstruction, was DC'd with chronic Rey
-Was recommended to follow-up OP with urology, return with gross hematuria and clots with retention
-Rey catheter was changed and patient able to produce UOP, urine this morning yellow with slight blood tinge
-Was started on IV Zosyn upon admission prior to urine and blood cultures
-ID consulted, recommendations appreciated
Plan
-Continue IV Zosyn and follow-up urine and blood cultures
-Maintain Rey catheter and continue tamsulosin
-Trend CBC and temperature curve
-Plan for OP urology follow-up
#Metabolic encephalopathy
-Secondary to sepsis and urinary tract infection with retention
-Currently AO x 3 with hindu of urine output and IV antibiotic
-Continue to monitor MSE
-Seems resolved
#Postrenal PAOLO
-Highly suspicious this occurred due to obstruction with Rey catheter, blood clots in Rey bag
-Presented with creatinine 2.1; urine output improved after changing Rey catheter
-Resolved with IV fluids and hindu of UOP
-Avoid unnecessary nephrotoxins
#T2DM
-Insulin-dependent; Home regimen includes Lantus 12 units nightly, as well as Janumet
-No known history of associated microvascular
-Janumet held, added on ISS upon admission
-Blood glucose goal 140-180
#Primary HTN
-Home medications include lisinopril and amlodipine
-No known history of hypertensive systemic disease
-Blood pressure here currently well-controlled
-Holding amlodipine for now due to soft BP
#H/O CVA with residual right sided weakness
-Unclear etiology; no known history of AF/AFL; possibly cerebrovascular in origin
-Home regimen includes high intensity statin and baby aspirin
-Suspect this is related to his chronic Rey as well
#Depression
-Home regimen includes lamotrigine as mood stabilizer, Abilify, and bupropion
-Mood appears stable at this time
#H/O DVT not on AC
DVT prophylaxis: Subcutaneous heparin
Diet: Carbohydrate controlled
CODE STATUS: DNR
Anticipated Discharge: 24 - 48 hours
Subjective/Interval History
-
Date of Service: May 20, 2024
Seen and examined at the bedside. No acute events overnight. AFVSS
Patient appears well this morning, mental status improved. Renal function normalized
He denies any new complaints as of this morning states he feels well
Objective Data
-
Labs:
Laboratory Results
05/20/24 05/20/24
00:04 07:06
WBC 8.9
Hgb 10.9 L
Hct 32.1 L
Plt Count 235
Sodium Cancelled 138
Potassium Cancelled 3.5
Chloride Cancelled 107
Carbon Dioxide Cancelled 27
BUN Cancelled 19
Creatinine Cancelled 0.7
Glucose Cancelled 83
Calcium Cancelled 8.5
Vital Signs:
Vital Signs
Temp Pulse Resp BP Pulse Ox
98.5 F 82 18 137/73 98
05/20/24 07:03 05/20/24 07:03 05/20/24 07:03 05/20/24 07:03 05/20/24 07:03
I&O
05/19/24 05/20/24 05/21/24
06:59 06:59 06:59
Intake Total 0 / 0 2690 / 2690
Output Total 800 / 800 1325 / 1325
Balance -800 / -800 1365 / 1365
Review of Systems
-
History Source: Patient
All other systems: Reviewed and negative
Physical Exam
-
General: Well Developed, Well Nourished and No Apparent Distress
HEENT: Normocephalic, Atraumatic and Moist Mucous Membranes
Respiratory: Clear to Auscultation and Non Labored Respirations
Cardiac: Regular Rhythm and S1/S2; Negative Murmur, Rub or Gallop
GI: Soft, Nontender, Nondistended and Normal Bowel Sounds
Genito-urinary: Clear Urine and Rey
Musculoskeletal: No Clubbing, No Cyanosis and No Edema
Skin: Warm, Dry and Normal Turgor; Negative Rash
Neuro: AO x 3 and Nonfocal/Grossly Intact
Psych: Calm
Data Reviewed
-
Labs: Labs Reviewed by me and Discussed with Patient
[2024-05-20 11:27] LABS: Glucose - Point of Care 111 mg/dl (70-99)
--- NOTE | 2024-05-20 13:45 | CM ---
Chart reviewed and patient to return to [facility] when stable.
[facility]
Report [phone]
[2024-05-20 17:14] LABS: Glucose - Point of Care 129 mg/dl (70-99)
[2024-05-20] MEDS: LIPITOR 80 MG PO (19:42)
[2024-05-20 21:08] LABS: Glucose - Point of Care 123 mg/dl (70-99)
[2024-05-20] MEDS: MELATONIN 5 MG PO (21:18)
[2024-05-20] MEDS: LANTUS 0.05 UNITS SC (21:19)
[2024-05-21] VITALS (7 sets, daily range): BP systolic 133–164; BP diastolic 76–87; PULSE 88; BMI 22.3
[2024-05-21] MEDS: ZOSYN 50 IV ×4 (05:07→23:57)
[2024-05-21 07:39] LABS: Glucose - Point of Care 96 mg/dl (70-99)
[2024-05-21 07:55] LABS: % Basophils 0.4 % (0-2); % Immature Granulocytes 0.5 % (0-0.5); % Lymphocytes 20.4 % (20.5-51.1); % Monocytes 9.2 % (1.7-9.3); % Neutrophils 65.5 % (42.2-75.2); Absolute Eosinophils 0.3 10^3/uL (0-0.7); Absolute Lymphocytes 1.6 10^3/uL (1.2-3.4); Absolute Monocytes 0.7 10^3/uL (0.1-0.6); Absolute Neutrophils 5.2 10^3/uL (1.4-6.5); Hematocrit 33.4 % (39.0-52.0); Hemoglobin 11.4 g/dL (13.0-18.0); Mean Corp Hgb Conc. 34.1 g/dL (33.0-37.0); Mean Corpuscular Hgb 29.8 pg (27.0-31.0); Mean Corpuscular Volume 87.4 fL (80.0-94.0); Mean Platelet Volume 10.4 fL (7.4-10.4); Nucleated Red Blood Cells % 0 % (-); Platelet Count 254 10^3/uL (130-400); Red Blood Cell Count 3.82 10^6/uL (4.70-6.10); Red Cell Dist. Width 13.2 % (11.5-14.5); White Blood Cell Count 7.9 10^3/uL (4.8-10.8)
[2024-05-21] MEDS: NOVOLOG FLEXPEN-LOW RESISTANCE SC (07:58)
[2024-05-21] MEDS: LAMICTAL 200 MG PO (07:59)
[2024-05-21] MEDS: VITAMIN B1 100 MG PO (07:59)
[2024-05-21] MEDS: WELLBUTRIN XL (24 hour extended release) 300 MG PO (07:59)
[2024-05-21] MEDS: FLOMAX 0.4 MG PO (08:00)
[2024-05-21] MEDS: VITAMIN B-12 1000 MCG PO (08:00)
[2024-05-21] MEDS: ABILIFY 10 MG PO (08:00)
[2024-05-21] MEDS: LOW STRENGTH ASPIRIN 81 MG PO (08:00)
[2024-05-21] MEDS: HEPARIN 5000 UNITS SC ×2 (08:00→20:05)
[2024-05-21 08:15] LABS: Blood Urea Nitrogen 11 mg/dl (9-20); Calcium 8.7 mg/dl (8.4-10.2); Carbon Dioxide 27 mmol/L (22-30); Chloride 105 mmol/L (98-107); Estimated Creatinine Clearance 95 ml/min; Glucose 100 mg/dl (70-99); Potassium 3.6 mmol/L (3.5-5.1); Sodium 138 mmol/L (135-145); eGFR > 60.00
--- NOTE | 2024-05-21 11:40 | W.PN.ID1 ---
Date of Service
Date of Service: May 21, 2024
Today's Communication
Continue Zosyn
Assessment / Plan
Reported hematuria
Leukocytosis -resolved
Suspected complicated urinary tract infection
Fever -resolved
PAOLO - resolved
HTN
Urinary retention; Hx chronic Rey catheter
DM
Dyslipidemia
Hx CVA (2014)
Aphasia
Depression
GERD
IBS
Dysphagia
Recommendations:
blood cultures neg to date
Ucx: preliminary GNRx2 and Enterococcus
Renal US mildly thickened bladder wall.
Continue with empiric Zosyn
Further recommendations as additional data is returned.
Chief Complaint
-: UTI
Vital Signs / Physical Exam
Vital Signs
Vital Signs
Temp Pulse Resp BP Pulse Ox
97.6 F 92 18 133/79 97
05/21/24 11:23 05/21/24 11:23 05/21/24 11:23 05/21/24 11:23 05/21/24 11:23
Physical Exam
Constitutional: No Acute Distress
Pulmonary: Clear
Gastrointestinal: Soft, Non Tender and Non Distended
Genito-Urinary: Rey and Clear Urine
Objective Data
Lab Data
Lab Results
05/21/24 07:14
05/21/24 07:14
Estimated Creat Clear 95 ml/min 05/21/24 07:14
Lactic Acid Cancelled 05/19/24 01:15
Total Bilirubin 0.7 mg/dl (0.2-1.3) 05/18/24 21:13
AST 21 U/L (17-59) 05/18/24 21:13
ALT 18 U/L (0-50) 05/18/24 21:13
Alkaline Phosphatase 85 U/L (38-126) 05/18/24 21:13
Most recent labs reviewed.
Micro Results:
05/18/24 21:13 Urine Culture - Preliminary
Urine Gram negative bacilli
Enterococcus species
05/18/24 21:13 Blood Culture - Preliminary
Blood/Venous No Growth in 48 hours- Final report to follow
05/18/24 21:13 Blood Culture - Preliminary
Blood/Venous No Growth in 48 hours- Final report to follow
05/18/24 21:16 Influenza Types A & B (CRISTIANO) - Final
Nasal Swab Negative for Influenza A & B, NAAT
Negative results must be combined with clinical observations
and patient history.
Nucleic Acid Amplification test (NAAT)performed on the
[employer] platform.
Imaging:
04/18/2024 CT abdomen/pelvis with contrast: Empty urinary bladder containing Rey catheter/balloon. Findings suggesting diffuse thickening of the wall of the urinary bladder such as cystitis. Prostate gland likely not enlarged, difficult to measure
with this imaging modality particularly due to adjacent/contiguous unopacified urinary bladder. If prostate gland with measurement is warranted, consider dedicated Endorectal Prostate ultrasound.
Care Review
Plan reviewed with: Laboratory ([facility])
[2024-05-21 11:51] LABS: Glucose - Point of Care 186 mg/dl (70-99)
[2024-05-21] MEDS: NOVOLOG FLEXPEN-LOW RESISTANCE 1 UNITS SC ×2 (12:01→16:20)
--- NOTE | 2024-05-21 13:08 | W.PN.HOSP.TC ---
Today's Communication/Plan
-
Continue IV Zosyn
We discussed possible empiric oral regimen with ID
Continue to follow urine culture for sensitivity
Trend CBC and temperature curve
Assessment / Plan
Assessment / Plan
#Sepsis secondary to CAUTI (Rey present [employer] SOFTWARE)
#Acute urine retention with history of neurogenic bladder and BPH
#Gross hematuria with clots
-Recently hospitalized in April 09 with acute urine retention and UTI complicated by encephalopathy
-Urology at that time suspected neurogenic bladder but cannot rule out obstruction, was DC'd with chronic Rey
-Was recommended to follow-up OP with urology, return with gross hematuria and clots with retention
-Rey catheter was changed and patient able to produce UOP, urine this morning yellow with slight blood tinge
-Was started on IV Zosyn upon admission prior to urine and blood cultures; urine culture growing Enterococcus
-ID consulted, recommendations appreciated
Plan
-Continue IV Zosyn now empirically; will discuss possible empiric p.o. regimen with ID
-Continue to follow urine cultures for sensitivities and final speciation
-Maintain Rey catheter and continue tamsulosin
-Trend CBC and temperature curve
-Plan for OP urology follow-up
#Metabolic encephalopathy
-Secondary to sepsis and urinary tract infection with retention
-Currently AO x 3 with pentecostalism of urine output and IV antibiotic
-Continue to monitor MSE
-Seems resolved
#Postrenal PAOLO
-Highly suspicious this occurred due to obstruction with Rey catheter, blood clots in Rey bag
-Presented with creatinine 2.1; urine output improved after changing Rey catheter
-Resolved with IV fluids and pentecostalism of UOP
-Avoid unnecessary nephrotoxins
#T2DM
-Insulin-dependent; Home regimen includes Lantus 12 units nightly, as well as Janumet
-No known history of associated microvascular
-Janumet held, added on ISS upon admission
-Blood glucose goal 140-180
#Primary HTN
-Home medications include lisinopril and amlodipine
-No known history of hypertensive systemic disease
-Blood pressure here currently well-controlled
-Holding amlodipine for now due to soft BP
#H/O CVA with residual right sided weakness
-Unclear etiology; no known history of AF/AFL; possibly cerebrovascular in origin
-Home regimen includes high intensity statin and baby aspirin
-Suspect this is related to his chronic Rey as well
#Depression
-Home regimen includes lamotrigine as mood stabilizer, Abilify, and bupropion
-Mood appears stable at this time
#H/O DVT not on AC
DVT prophylaxis: Subcutaneous heparin
Diet: Carbohydrate controlled
CODE STATUS: DNR
Disposition: [facility] when medically stable
Anticipated Discharge: 24 - 48 hours
Subjective/Interval History
-
Date of Service: May 21, 2024
Seen and examined at the bedside. No acute events reported overnight. AFVSS this morning
Urine culture returned positive for Enterococcus, sensitivities pending. Remains without fevers or leukocytosis
He denies any new complaints as of this morning
Objective Data
-
Labs:
Laboratory Results
05/21/24
07:14
WBC 7.9
Hgb 11.4 L
Hct 33.4 L
Plt Count 254
Sodium 138
Potassium 3.6
Chloride 105
Carbon Dioxide 27
BUN 11
Creatinine 0.7
Glucose 100 H
Calcium 8.7
Vital Signs:
Vital Signs
Temp Pulse Resp BP Pulse Ox
97.6 F 92 18 133/79 97
05/21/24 11:23 05/21/24 11:23 05/21/24 11:23 05/21/24 11:23 05/21/24 11:23
I&O
05/20/24 05/21/24 05/22/24
06:59 06:59 07:59
Intake Total 2690 / 2690 820 / 820
Output Total 1325 / 1325 2200 / 2200
Balance 1365 / 1365 -1380 / -1380
Review of Systems
-
History Source: Patient
All other systems: Reviewed and negative
Physical Exam
-
General: Well Developed, Well Nourished and No Apparent Distress
HEENT: Normocephalic, Atraumatic and Moist Mucous Membranes
Respiratory: Clear to Auscultation and Non Labored Respirations
Cardiac: Regular Rhythm and S1/S2; Negative Murmur, Rub or Gallop
GI: Soft, Nontender, Nondistended and Normal Bowel Sounds
Genito-urinary: No Costovertebral Tender, Clear Urine and Rey
Musculoskeletal: No Clubbing, No Cyanosis, No Edema and Other (Chronic contracture of upper extremity)
Skin: Warm and Dry; Negative Rash
Neuro: AO x 3, Central Nerve's Intact and Other (Chronic right-sided deficits, no new FND); Negative Tremors
Psych: Calm
Data Reviewed
-
Labs: Labs Reviewed by me, Discussed with Physician (Infectious disease) and Discussed with Patient
--- NOTE | 2024-05-21 14:59 | PTOTSP ---
pt requires total assistance with ADLs at baseline. pt requires max assist of 2 for sitting balance, bed mobility. will defer to PT at this time for mobility, no acute OT needs identified at this time. will sign off.
[2024-05-21 15:52] LABS: Glucose - Point of Care 168 mg/dl (70-99)
[2024-05-21] MEDS: LIPITOR 80 MG PO (20:05)
[2024-05-21 20:54] LABS: Glucose - Point of Care 151 mg/dl (70-99)
[2024-05-21] MEDS: MELATONIN 5 MG PO (21:53)
[2024-05-21] MEDS: LANTUS 0.05 UNITS SC (21:53)
[2024-05-22 03:28] VITALS: BP 168/85
[2024-05-22 05:34] VITALS: BMI 22.2
[2024-05-22] MEDS: ZOSYN 50 IV ×3 (05:55→17:08)
[2024-05-22 06:58] LABS: Hematocrit 34.3 % (39.0-52.0); Hemoglobin 11.8 g/dL (13.0-18.0); Mean Corp Hgb Conc. 34.4 g/dL (33.0-37.0); Mean Corpuscular Volume 87.3 fL (80.0-94.0); Mean Platelet Volume 10.5 fL (7.4-10.4); Platelet Count 264 10^3/uL (130-400); Red Blood Cell Count 3.93 10^6/uL (4.70-6.10); Red Cell Dist. Width 13.1 % (11.5-14.5); White Blood Cell Count 9.1 10^3/uL (4.8-10.8)
[2024-05-22 07:00] VITALS: BP 143/81
[2024-05-22 07:17] LABS: Glucose - Point of Care 104 mg/dl (70-99)
[2024-05-22] MEDS: NOVOLOG FLEXPEN-LOW RESISTANCE SC ×3 (08:32→16:45)
[2024-05-22] MEDS: VITAMIN B1 100 MG PO (08:33)
[2024-05-22] MEDS: LAMICTAL 200 MG PO (08:33)
[2024-05-22] MEDS: ABILIFY 10 MG PO (08:33)
[2024-05-22] MEDS: WELLBUTRIN XL (24 hour extended release) 300 MG PO (08:33)
[2024-05-22] MEDS: VITAMIN B-12 1000 MCG PO (08:33)
[2024-05-22] MEDS: LOW STRENGTH ASPIRIN 81 MG PO (08:33)
[2024-05-22] MEDS: FLOMAX 0.4 MG PO (08:33)
[2024-05-22] MEDS: HEPARIN 5000 UNITS SC ×2 (08:34→20:35)
[2024-05-22 11:00] VITALS: BP 140/75
--- NOTE | 2024-05-22 11:08 | W.PN.HOSP.TC ---
Today's Communication/Plan
-
Continue Zosyn and follow urine culture
Likely discharge on p.o. antibiotic within 24h
Will need OP urology follow
Assessment / Plan
Assessment / Plan
#Sepsis secondary to CAUTI (Rey present MANAGER VALIDATION)
#Acute urine retention with history of neurogenic bladder and BPH
#Gross hematuria with clots
-Recently hospitalized in April 09 with acute urine retention and UTI complicated by encephalopathy
-Urology at that time suspected neurogenic bladder but cannot rule out obstruction, was DC'd with chronic Rey
-Was recommended to follow-up OP with urology, return with gross hematuria and clots with retention
-Rey catheter was changed and patient able to produce UOP, urine this morning yellow with slight blood tinge
-Was started on IV Zosyn upon admission prior to urine and blood cultures; urine culture growing Enterococcus
-ID consulted, recommendations appreciated
Plan
-Continue IV Zosyn now empirically; will discuss possible empiric p.o. regimen with ID
-Continue to follow urine cultures for sensitivities and final speciation
-Maintain Rey catheter and continue tamsulosin
-Trend CBC and temperature curve
-Plan for OP urology follow-up
#Metabolic encephalopathy
-Secondary to sepsis and urinary tract infection with retention
-Currently AO x 3 with samaritan of urine output and IV antibiotic
-Continue to monitor MSE
-Seems resolved
#Postrenal PAOLO
-Highly suspicious this occurred due to obstruction with Rey catheter, blood clots in Rey bag
-Presented with creatinine 2.1; urine output improved after changing Rey catheter
-Resolved with IV fluids and samaritan of UOP
-Avoid unnecessary nephrotoxins
#T2DM
-Insulin-dependent; Home regimen includes Lantus 12 units nightly, as well as Janumet
-No known history of associated microvascular
-Janumet held, added on ISS upon admission
-Blood glucose goal 140-180
#Primary HTN
-Home medications include lisinopril and amlodipine
-No known history of hypertensive systemic disease
-Blood pressure here currently well-controlled
-Holding amlodipine for now due to soft BP
#H/O CVA with residual right sided weakness
-Unclear etiology; no known history of AF/AFL; possibly cerebrovascular in origin
-Home regimen includes high intensity statin and baby aspirin
-Suspect this is related to his chronic Rey as well
#Depression
-Home regimen includes lamotrigine as mood stabilizer, Abilify, and bupropion
-Mood appears stable at this time
#H/O DVT not on AC
DVT prophylaxis: Subcutaneous heparin
Diet: Carbohydrate controlled
CODE STATUS: DNR
Disposition: [facility] when medically stable
Anticipated Discharge: Within 24 hours
Subjective/Interval History
-
Date of Service: May 22, 2024
Seen and examined at the bedside. No acute events reported overnight. AFVSS as of this
Urine culture still pending sensitivities. No leukocytosis and renal function stable
Denies any new complaints as of this
Objective Data
-
Labs:
Laboratory Results
05/22/24
06:19
WBC 9.1
Hgb 11.8 L
Hct 34.3 L
Plt Count 264
Vital Signs:
Vital Signs
Temp Pulse Resp BP Pulse Ox
97.7 F 78 18 143/81 96
05/22/24 07:00 05/22/24 07:00 05/22/24 07:00 05/22/24 07:00 05/22/24 07:00
I&O
05/21/24 05/22/24 05/23/24
05:59 06:59 06:59
Intake Total
Output Total
Balance
Review of Systems
-
History Source: Patient
All other systems: Reviewed and negative
Physical Exam
-
General: Well Developed, No Apparent Distress and Comfortable
HEENT: Normocephalic, Atraumatic and Moist Mucous Membranes
Respiratory: Clear to Auscultation and Non Labored Respirations
Cardiac: Regular Rhythm and S1/S2; Negative Murmur, Rub or Gallop
GI: Soft, Nontender, Nondistended and Normal Bowel Sounds
Genito-urinary: No Costovertebral Tender, Clear Urine and Rey
Musculoskeletal: No Clubbing, No Cyanosis, No Edema and Other (Chronic contracture of RUE)
Skin: Warm and Dry; Negative Rash
Neuro: AO x 3 and Other (Chronic right extremity deficits; no other new FND or cranial nerve deficits )
Psych: Calm
Data Reviewed
-
Labs: Labs Reviewed by me, Discussed with Physician (Infectious disease) and Discussed with Patient
[2024-05-22 11:41] LABS: Glucose - Point of Care 146 mg/dl (70-99)
--- NOTE | 2024-05-22 14:59 | CM ---
CM reviewed chart, patient seen asleep bedside. Patient LTC resident [facility], likely discharge within 24 hours. Ambulance transport forms on chart. CM will continue to follow for all discharge planning needs.
Plan; return to [facility], likely tomorrow
[facility]
Report [phone]
[2024-05-22 15:00] VITALS: BP 146/78
--- NOTE | 2024-05-22 15:16 | W.PN.ID1 ---
Date of Service
Date of Service: May 22, 2024
Today's Communication
Add Bactrim to Zosyn.
Assessment / Plan
Reported hematuria
Leukocytosis -resolved
Suspected complicated urinary tract infection
Fever -resolved
PAOLO - resolved
HTN
Urinary retention; Hx chronic Rey catheter
DM
Dyslipidemia
Hx CVA (2014)
Aphasia
Depression
GERD
IBS
Dysphagia
Recommendations:
Renal US mildly thickened bladder wall.
blood cultures neg to date
Ucx: preliminary Morganella, Enterococcus, 2nd GNR
Morganella intermediate resistant to Zosyn. Add Bactrim DS 1 tab po bod
Continue with Zosyn pending final Ucx result.
Further recommendations as additional data is returned.
Chief Complaint
-: UTI
Subjective / Review of Systems
No complaints.
Vital Signs / Physical Exam
Vital Signs
Vital Signs
Temp Pulse Resp BP Pulse Ox
98.0 F 86 18 146/78 95
05/22/24 15:00 05/22/24 15:00 05/22/24 15:00 05/22/24 15:00 05/22/24 15:00
Physical Exam
Constitutional: No Acute Distress
Pulmonary: Clear
Gastrointestinal: Soft, Non Tender and Non Distended
Genito-Urinary: Rey and Clear Urine; Negative CVA Tenderness
Extremities: Negative Edema
Objective Data
Lab Data
Lab Results
05/22/24 06:19
05/21/24 07:14
Estimated Creat Clear 95 ml/min 05/21/24 07:14
Lactic Acid Cancelled 05/19/24 01:15
Total Bilirubin 0.7 mg/dl (0.2-1.3) 05/18/24 21:13
AST 21 U/L (17-59) 05/18/24 21:13
ALT 18 U/L (0-50) 05/18/24 21:13
Alkaline Phosphatase 85 U/L (38-126) 05/18/24 21:13
Most recent labs reviewed.
Micro Results:
05/18/24 21:13 Blood Culture - Preliminary
Blood/Venous No Growth in 72 hours- Final report to follow
05/18/24 21:13 Urine Culture - Preliminary
Urine Morganella morganii
Enterococcus species
Gram negative bacilli
05/18/24 21:13 Blood Culture - Preliminary
Blood/Venous No Growth in 72 hours- Final report to follow
05/18/24 21:16 Influenza Types A & B (CRISTIANO) - Final
Nasal Swab Negative for Influenza A & B, NAAT
Negative results must be combined with clinical observations
and patient history.
Nucleic Acid Amplification test (NAAT)performed on the
[employer] platform.
Imaging:
04/18/2024 CT abdomen/pelvis with contrast: Empty urinary bladder containing Rey catheter/balloon. Findings suggesting diffuse thickening of the wall of the urinary bladder such as cystitis. Prostate gland likely not enlarged, difficult to measure
with this imaging modality particularly due to adjacent/contiguous unopacified urinary bladder. If prostate gland with measurement is warranted, consider dedicated Endorectal Prostate ultrasound.
[2024-05-22 16:45] LABS: Glucose - Point of Care 136 mg/dl (70-99)
[2024-05-22 19:11] VITALS: BP 154/82
[2024-05-22] MEDS: LIPITOR 80 MG PO (20:35)
[2024-05-22] MEDS: BACTRIM DS 800 MG/160 MG 1 TABLET PO (20:35)
[2024-05-22 21:04] LABS: Glucose - Point of Care 142 mg/dl (70-99)
[2024-05-22] MEDS: MELATONIN 5 MG PO (22:02)
[2024-05-22] MEDS: LANTUS 0.05 UNITS SC (22:02)
[2024-05-22 23:19] VITALS: BP 162/90
[2024-05-23] MEDS: ZOSYN 50 IV ×3 (00:52→13:05)
[2024-05-23 02:54] VITALS: BP 143/78
[2024-05-23 05:53] VITALS: BMI 21.7
[2024-05-23 07:00] VITALS: BP 146/85
[2024-05-23 07:51] LABS: Glucose - Point of Care 110 mg/dl (70-99)
[2024-05-23] MEDS: NOVOLOG FLEXPEN-LOW RESISTANCE SC ×2 (08:07→17:29)
[2024-05-23] MEDS: VITAMIN B1 100 MG PO (08:27)
[2024-05-23] MEDS: WELLBUTRIN XL (24 hour extended release) 300 MG PO (08:27)
[2024-05-23] MEDS: LOW STRENGTH ASPIRIN 81 MG PO (08:27)
[2024-05-23] MEDS: LAMICTAL 200 MG PO (08:28)
[2024-05-23] MEDS: ABILIFY 10 MG PO (08:28)
[2024-05-23] MEDS: BACTRIM DS 800 MG/160 MG 1 TABLET PO ×2 (08:28→21:00)
[2024-05-23] MEDS: HEPARIN 5000 UNITS SC ×2 (08:29→21:00)
[2024-05-23] MEDS: FLOMAX 0.4 MG PO (08:29)
[2024-05-23] MEDS: VITAMIN B-12 1000 MCG PO (08:30)
[2024-05-23 11:23] VITALS: BP 152/84
[2024-05-23 13:15] LABS: Glucose - Point of Care 199 mg/dl (70-99)
--- NOTE | 2024-05-23 13:26 | CM ---
Patient to return to [facility] where [facility] a [facility] when stable.
Plan; Patient to return to [facility] when stable.
[facility]
Report [phone]
--- NOTE | 2024-05-23 13:56 | W.PN.HOSP.TC ---
Today's Communication/Plan
-
Abx per ID; check EKG for QTc
Assessment / Plan
Assessment / Plan
Assessment:
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
Acute urine retention with history of neurogenic bladder and BPH with Chronic Rey
Gross hematuria with clots
- Recently hospitalized in April 09 with acute urine retention and UTI complicated by encephalopathy
- Urology at that time suspected neurogenic bladder but cannot rule out obstruction, was DC'd with chronic Ery
- Was recommended to follow-up OP with urology, return with gross hematuria and clots with retention
- Rey catheter was exchanged this hospitalization
- OP Urology f/u
- Urine culture growing Pseudomonas, Enterococcus and Morganella. Continue IV Zosyn/Bactrim. ID following. Check QTC in case of transition to FQ.
Metabolic encephalopathy secondary to sepsis and urinary tract infection with retention
- Currently AO x 3 with advent of urine output and IV antibiotic
- Continue to monitor MSE
- Seems resolved
Postrenal PAOLO
- Highly suspicious this occurred due to obstruction with Rey catheter, blood clots in Rey bag
- Presented with creatinine 2.1; urine output improved after changing Rey catheter
- Resolved with IV fluids and advent of UOP
- Avoid unnecessary nephrotoxins
T2DM
- Insulin-dependent; Home regimen includes Lantus 12 units nightly, as well as Janumet
- No known history of associated microvascular
- Janumet held, added on ISS upon admission
- Blood glucose goal 140-180
Primary HTN
- Home medications include lisinopril and amlodipine; initially held now can resume with rising BP And improved renal function
H/O CVA with residual right sided weakness
- Unclear etiology; no known history of AF/AFL; possibly cerebrovascular in origin
- Home regimen includes high intensity statin and baby aspirin
Depression
- Home regimen includes lamotrigine as mood stabilizer, Abilify, and bupropion
- Mood appears stable at this time
H/O DVT not on AC
DVT ppx: SC Heparin
Code: DNR/DNI
Anticipated Discharge: 24 - 48 hours
Subjective/Interval History
-
Date of Service: May 23, 2024
reports improvement in weakness related to UTI
Objective Data
-
Vital Signs:
Vital Signs
Temp Pulse Resp BP Pulse Ox
97.5 F 90 20 152/84 100
05/23/24 11:23 05/23/24 11:23 05/23/24 11:23 05/23/24 11:23 05/23/24 11:23
I&O
05/22/24 05/23/24 05/24/24
06:59 06:59 06:59
Intake Total 1540 / 1540
Output Total 1999
Balance -460 / -460
Physical Exam
-
General: No Apparent Distress
HEENT: Normocephalic and Atraumatic
Respiratory: Clear to Auscultation; Negative Wheezes
Cardiac: Regular Rhythm and S1/S2
GI: Soft and Nontender
Musculoskeletal: No Edema
Neuro: AO x 3
Hematologic / Lymphatic: No Lymphadenopathy
Psych: Calm
Data Reviewed
-
Total Time Spent with Patient (in minutes): 42
Labs: Labs Reviewed by me
--- NOTE | 2024-05-23 14:57 | W.PN.ID1 ---
Date of Service
Date of Service: May 23, 2024
Today's Communication
Continue abx. See below...
Assessment / Plan
Reported hematuria
Leukocytosis -resolved
Suspected complicated urinary tract infection
Fever -resolved
PAOLO - resolved
HTN
Urinary retention; Hx chronic Rey catheter
DM
Dyslipidemia
Hx CVA (2014)
Aphasia
Depression
GERD
IBS
Dysphagia
Recommendations:
Renal US mildly thickened bladder wall.
blood cultures neg to date
Ucx: preliminary Morganella, Enterococcus, 2nd GNR
Morganella intermediate resistant to Zosyn. Continue Bactrim DS 1 tab po BID
Transition to levaquin 500 mg PO qDay. EKG with FJy=865 (05/23/24)
Chief Complaint
-: UTI
Subjective / Review of Systems
Review of Systems: No Fever and No Chills
Vital Signs / Physical Exam
Vital Signs
Vital Signs
Temp Pulse Resp BP Pulse Ox
97.5 F 90 20 152/84 100
05/23/24 11:23 05/23/24 11:23 05/23/24 11:23 05/23/24 11:23 05/23/24 11:23
Physical Exam
Constitutional: No Acute Distress, Chronically Ill and Non-toxic
Eyes: Sclera Anicteric
Cardiovascular: S1/S2; Negative S3/S4
Pulmonary: Clear
Gastrointestinal: Soft, Non Tender and Non Distended
Genito-Urinary: Rey and Clear Urine; Negative CVA Tenderness, Turbid Urine or Hematuria
Extremities: Negative Edema
Neurological: Awake and Alert
Psychological: Calm
Objective Data
Lab Data
Lab Results
05/22/24 06:19
05/21/24 07:14
Estimated Creat Clear 95 ml/min 03/08/25 07:14
Lactic Acid Cancelled 05/19/24 01:15
Total Bilirubin 0.7 mg/dl (0.2-1.3) 05/18/24 21:13
AST 21 U/L (17-59) 05/18/24 21:13
ALT 18 U/L (0-50) 05/18/24 21:13
Alkaline Phosphatase 85 U/L (38-126) 05/18/24 21:13
Most recent labs reviewed.
Micro Results:
05/18/24 21:13 Urine Culture - Final
Urine Morganella morganii
Enterococcus faecalis
Pseudomonas aeruginosa
05/18/24 21:13 Blood Culture - Preliminary
Blood/Venous No Growth in 4 days- Final report to follow
05/18/24 21:13 Blood Culture - Preliminary
Blood/Venous No Growth in 4 days- Final report to follow
05/18/24 21:16 Influenza Types A & B (CRISTIANO) - Final
Nasal Swab Negative for Influenza A & B, NAAT
Negative results must be combined with clinical observations
and patient history.
Nucleic Acid Amplification test (NAAT)performed on the
[employer] platform.
Imaging:
04/18/2024 CT abdomen/pelvis with contrast: Empty urinary bladder containing Rey catheter/balloon. Findings suggesting diffuse thickening of the wall of the urinary bladder such as cystitis. Prostate gland likely not enlarged, difficult to measure
with this imaging modality particularly due to adjacent/contiguous unopacified urinary bladder. If prostate gland with measurement is warranted, consider dedicated Endorectal Prostate ultrasound.
[2024-05-23 15:00] VITALS: BP 149/76
[2024-05-23] MEDS: NOVOLOG FLEXPEN-LOW RESISTANCE 1 UNITS SC (15:15)
[2024-05-23] MEDS: LEVAQUIN 500 MG PO (15:34)
[2024-05-23 17:23] LABS: Glucose - Point of Care 138 mg/dl (70-99)
[2024-05-23 19:55] VITALS: BP 166/96
[2024-05-23] MEDS: MELATONIN 5 MG PO (21:20)
[2024-05-23] MEDS: LIPITOR 80 MG PO (21:20)
[2024-05-23 21:43] LABS: Glucose - Point of Care 178 mg/dl (70-99)
[2024-05-23] MEDS: LANTUS 0.05 UNITS SC (22:14)
[2024-05-23 23:10] VITALS: BP 135/79
[2024-05-24 03:38] VITALS: BP 154/80
[2024-05-24 07:00] VITALS: BP 134/63
[2024-05-24 07:29] LABS: Hematocrit 36.6 % (39.0-52.0); Hemoglobin 12.3 g/dL (13.0-18.0); Mean Corp Hgb Conc. 33.6 g/dL (33.0-37.0); Mean Corpuscular Hgb 29.7 pg (27.0-31.0); Mean Corpuscular Volume 88.4 fL (80.0-94.0); Mean Platelet Volume 9.9 fL (7.4-10.4); Platelet Count 313 10^3/uL (130-400); Red Blood Cell Count 4.14 10^6/uL (4.70-6.10); Red Cell Dist. Width 13.2 % (11.5-14.5); White Blood Cell Count 10.7 10^3/uL (4.8-10.8)
[2024-05-24 07:58] LABS: Blood Urea Nitrogen 11 mg/dl (9-20); Calcium 9.2 mg/dl (8.4-10.2); Carbon Dioxide 25 mmol/L (22-30); Chloride 105 mmol/L (98-107); Estimated Creatinine Clearance 81 ml/min; Glucose 129 mg/dl (70-99); Potassium 4.4 mmol/L (3.5-5.1); Sodium 136 mmol/L (135-145); eGFR > 60.00
[2024-05-24 08:13] LABS: Glucose - Point of Care 118 mg/dl (70-99)
[2024-05-24] MEDS: NOVOLOG FLEXPEN-LOW RESISTANCE SC (08:19)
[2024-05-24] MEDS: LAMICTAL 200 MG PO (08:29)
[2024-05-24] MEDS: ZESTRIL 40 MG PO (08:29)
[2024-05-24] MEDS: LOW STRENGTH ASPIRIN 81 MG PO (08:29)
[2024-05-24] MEDS: WELLBUTRIN XL (24 hour extended release) 300 MG PO (08:29)
[2024-05-24] MEDS: ABILIFY 10 MG PO (08:29)
[2024-05-24] MEDS: LEVAQUIN 500 MG PO (08:30)
[2024-05-24] MEDS: BACTRIM DS 800 MG/160 MG 1 TABLET PO (08:30)
[2024-05-24] MEDS: NORVASC 5 MG PO (08:30)
[2024-05-24] MEDS: FLOMAX 0.4 MG PO (08:30)
[2024-05-24] MEDS: VITAMIN B1 100 MG PO (08:31)
[2024-05-24] MEDS: HEPARIN 5000 UNITS SC (08:31)
[2024-05-24] MEDS: VITAMIN B-12 1000 MCG PO (08:31)
--- NOTE | 2024-05-24 10:08 | W.PN.HOSP.TC ---
Today's Communication/Plan
-
dc back to SNF today
Assessment / Plan
Assessment / Plan
Assessment:
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
Acute urine retention with history of neurogenic bladder and BPH with Chronic Rey
Gross hematuria with clots
- Recently hospitalized in April 09 with acute urine retention and UTI complicated by encephalopathy
- Urology at that time suspected neurogenic bladder but cannot rule out obstruction, was DC'd with chronic Rey
- Was recommended to follow-up OP with urology, return with gross hematuria and clots with retention
- Rey catheter was exchanged this hospitalization
- OP Urology f/u
- Urine culture growing Pseudomonas, Enterococcus and Morganella. d/w ID And dc on Bactrim and Levaquin through 05/31/24.
Metabolic encephalopathy secondary to sepsis and urinary tract infection with retention
- Currently AO x 3 with sikh of urine output and IV antibiotic
- Continue to monitor MSE
- Seems resolved
Postrenal PAOLO
- Highly suspicious this occurred due to obstruction with Rey catheter, blood clots in Rey bag
- Presented with creatinine 2.1; urine output improved after changing Rey catheter
- Resolved with IV fluids and sikh of UOP
- Avoid unnecessary nephrotoxins
T2DM
- Insulin-dependent; Home regimen includes Lantus 12 units nightly, as well as Janumet
- No known history of associated microvascular
- Janumet held, added on ISS upon admission
- Blood glucose goal 140-180
Primary HTN
- Home medications include lisinopril and amlodipine; initially held now can resume with rising BP And improved renal function
H/O CVA with residual right sided weakness
- Unclear etiology; no known history of AF/AFL; possibly cerebrovascular in origin
- Home regimen includes high intensity statin and baby aspirin
Depression
- Home regimen includes lamotrigine as mood stabilizer, Abilify, and bupropion
- Mood appears stable at this time
H/O DVT not on AC
DVT ppx: SC Heparin
Code: DNR/DNI
More than 30 minutes spent in discharge including
Final examination of the patient
Summarizing hospital stay
Instructions for continuing care to all relevant caregivers
Preparation of discharge records, prescriptions, and referral forms
Total time spent (in minutes): 41
Anticipated Discharge: Today
Subjective/Interval History
-
Date of Service: May 24, 2024
no complaints at present
Objective Data
-
Labs:
Laboratory Results
05/24/24
06:59
WBC 10.7
Hgb 12.3 L
Hct 36.6 L
Plt Count 313
Sodium 136
Potassium 4.4
Chloride 105
Carbon Dioxide 25
BUN 11
Creatinine 0.8
Glucose 129 H
Calcium 9.2
Vital Signs:
Vital Signs
Temp Pulse Resp BP Pulse Ox
97.4 F 80 16 134/63 98
05/24/24 07:00 05/24/24 07:00 05/24/24 07:00 05/24/24 08:29 05/24/24 09:47
I&O
05/23/24 05/24/24 05/25/24
06:59 06:59 06:59
Intake Total 1540 / 1540 720 / 720
Output Total 1999 2250 / 2250
Balance -460 / -460 -1530 / -1530
Physical Exam
-
General: No Apparent Distress
HEENT: Normocephalic and Atraumatic
Respiratory: Negative Wheezes
Cardiac: Regular Rhythm and S1/S2
GI: Soft
Genito-urinary: No Costovertebral Tender
Musculoskeletal: No Edema
Neuro: AO x 3
Hematologic / Lymphatic: No Lymphadenopathy
Psych: Calm
Data Reviewed
-
Total Time Spent with Patient (in minutes): 41
Labs: Labs Reviewed by me
--- NOTE | 2024-05-24 10:13 | W.DS.TRANS ---
DC Summary - Slag Dumper
-
Discharge Instructions:
Discharge Diagnosis/Procedures CAUTI
Obstructive PAOLO
Urosepsis
Metabolic encephalopathy
Diet As tolerated,Diabetic, Carb Controlled
Activity As tolerated
Driving Restrictions No driving
Bathing Restrictions As prior to hospitlization
Blood Work CBC w/ diff and BMP 1 week after discharge
Others Tests Cystoscopy (follow up with his urologist with-in
1-2 weeks of discharge)
Other Services PT,OT
Instructions: Lowering the risk of a catheter-associated urinary tract infection
Stand-Alone Forms:
Changes to Home Medications: Yes
Discharge Medications:
DC Medications w/original date entered in Rule.
lamotrigine 200 mg tablet 200 mg PO DAILY Mental Health/Anxiety 09/10/20
lisinopril 40 mg tablet 40 mg PO DAILY Blood pressure 09/10/20
sitagliptin phosphate 50 mg-metformin 500 mg tablet (Janumet) 1 tab PO BID Diabetes 04/14/24
thiamine HCl (vitamin B1) 100 mg tablet 100 mg PO DAILY Supplement 04/15/24
tamsulosin 0.4 mg capsule 0.4 mg PO DAILY #1 cap 04/19/24
acetaminophen 325 mg tablet 650 mg PO Q6HPRN PRN FEVER>100/MILD PAIN 05/18/24
amlodipine 5 mg tablet 5 mg PO DAILY Blood Pressure 05/18/24
aripiprazole 10 mg tablet 10 mg PO DAILY Mental Health/Anxiety 05/18/24
aspirin 81 mg chewable tablet 81 mg PO DAILY Blood Clot Prevention/Tx 05/18/24
atorvastatin 80 mg tablet 80 mg PO HS High Cholesterol 05/18/24
bisacodyl 10 mg rectal suppository 10 mg CA DAILYPRN PRN MOM INEFFECTIVE 05/18/24
bupropion HCl 300 mg 24 hr tablet, extended release 300 mg PO DAILY Depression 05/18/24
cyanocobalamin (vitamin B-12) 1,000 mcg tablet 1,000 mcg PO DAILY Supplement 05/18/24
diphenoxylate-atropine 2.5 mg-0.025 mg tablet 1 tab PO Q6HPRN PRN DIARRHEA 05/18/24
insulin glargine 100 unit/mL (3 mL) subcutaneous pen, sensor (Basaglar Tempo Pen (U-100) Insulin) 12 unit SC HS Diabetes 05/18/24
magnesium hydroxide 400 mg/5 mL oral suspension (Milk of Magnesia) 2,400 mg PO [id number] PRN NO BM FOR 3 DAYS 05/18/24
melatonin 5 mg tablet 5 mg PO HS Sleep 05/18/24
sodium phosphates 19 gram-7 gram/118 mL enema (Fleet Enema) 118 ml CA DAILYPRN PRN BISACODYL INEFFECTIVE 05/18/24
levofloxacin 500 mg tablet 500 mg PO DAILY #7 tabs 05/24/24
sulfamethoxazole 800 mg-trimethoprim 160 mg tablet 1 tab PO BID #13 tabs 05/24/24
Home Medication Changes
Mobic stopped
Pending Results: No
Total time spent discharging patient (in min): 41
--- NOTE | 2024-05-24 10:43 | CM ---
Patient to return to [facility] today.
[facility]
Report [phone]
[2024-05-24 11:00] VITALS: BP 140/79
[2024-05-24 12:48] LABS: Glucose - Point of Care 166 mg/dl (70-99)
[2024-05-24] MEDS: NOVOLOG FLEXPEN-LOW RESISTANCE 1 UNITS SC (12:48)
== END 2024-05-24 14:19 | DRG 698 ==
LOC: 4 WEST ACU 22:36
PROVIDERS: Internal Medicine; Registered Nurse; ADMITTING PHYSICIAN Internal Medicine; ATTENDING PHYSICIAN Internal Medicine; CONSULT PHYSICIAN Internal Medicine Infectious Disease; EMERGENCY PHYSICIAN Emergency Medicine; FAMILY PHYSICIAN Student in an Organized Health Care Education/Training Program
DX: T83.511A Infection and inflammatory reaction due to indwelling urethral catheter, initial encounter (principal); A41.9 Sepsis, unspecified organism; G93.41 Metabolic encephalopathy; N17.9 Acute kidney failure, unspecified; I69.351 Hemiplegia and hemiparesis following cerebral infarction affecting right dominant side; N39.0 Urinary tract infection, site not specified; Y84.6 Urinary catheterization as the cause of abnormal reaction of the patient, or of later complication, without mention of misadventure at the time of the procedure; N31.9 Neuromuscular dysfunction of bladder, unspecified; N40.1 Benign prostatic hyperplasia with lower urinary tract symptoms; R31.0 Gross hematuria; B96.5 Pseudomonas (aeruginosa) (mallei) (pseudomallei) as the cause of diseases classified elsewhere; B95.2 Enterococcus as the cause of diseases classified elsewhere; E11.9 Type 2 diabetes mellitus without complications; Z79.4 Long term (current) use of insulin; I10 Essential (primary) hypertension; F32.A Depression, unspecified; Z86.718 Personal history of other venous thrombosis and embolism; Z79.82 Long term (current) use of aspirin; Z66 Do not resuscitate; K21.9 Gastro-esophageal reflux disease without esophagitis; K58.9 Irritable bowel syndrome, unspecified; Z79.899 Other long term (current) drug therapy; R13.10 Dysphagia, unspecified; I69.320 Aphasia following cerebral infarction; E78.00 Pure hypercholesterolemia, unspecified; Z11.52 Encounter for screening for COVID-19; Z96.651 Presence of right artificial knee joint
CPT/HCPCS: 51702; 71045; 76770; 80048; 80053; 81003; 81015; 82962; 83036; 83605; 85025; 85027; 87040; 87077; 87086; 87186; 87502; 87811; 92526; 92610; 93005; 96361; 96365; 97162; 97167; 97530; 99291

== ENCOUNTER 2024-05-31 16:54 | Inpatient (IN) | payer MEDICARE, OTHER, SELFPAY ==
[2024-05-31] VITALS (22 sets, daily range): BP systolic 96–134; BP diastolic 62–87; BMI 21.2
--- NOTE | 2024-05-31 11:04 | ED.GENMED ---
History of Present Illness
General
Chief Complaint: Breathing Problem
Time Seen by Provider: 05/31/24 11:01
History of Present Illness
History of Present Illness:
73-year-old male with history of CVA with residual right-sided weakness, neurogenic bladder with chronic indwelling Rey, hypertension, diabetes presenting to the emergency department for cough and hypoxia. Patient presents from halfway
facility where he was noted to be hypoxic to 60%. Patient notes that he did start coughing this morning, productive. Denies fever. Denies chest pain. Notes recent hospital admission, and on review of EMR, admitted from 05/18 to 05/24 for sepsis
from urinary source, PAOLO, metabolic encephalopathy. Per medics, on their arrival patient was on 4 L, 80% saturations. Patient is not O2 dependent. No additional history obtained at this time
Past History
Past History
ED Past Medical History: CVA (Left MCA 2023), GERD, HTN, Hypercholesterolemia, Psychiatric and Other (DVT, IBS)
ED Past Surgical History: Orthopedic (Left subacromial decompression, right TKA) and Other (Bilateral bunionectomy)
Social History
Tobacco: Non-smoker
Alcohol: Chronic alcoholic
Drug: None
Personal:
Living: alone
Employment: Disabled
Family History
Family History: Other
Phy Exam
Physical Exam
Physical Exam:
General: Well-appearing, no clinical signs of dehydration, nontoxic and in no acute distress
HEENT: protecting airway
Neck: appears supple
CV: Tachycardic, regular rhythm, no evidence of cyanosis
Resp: Mild tachypnea with mild rhonchorous breath sounds bilaterally
Abd: Soft and non-distended, no tenderness to palpation
Extremities: No deformities, no swelling. Chronic contracture to the right upper extremity.
Neuro: alert. Right-sided hemiparesis, chronic
: deferred
Rectal: deferred
Psych: Normal affect
Skin: Intact
Scores
Heart Failure Risk
Heart Failure Risk Score: Not Applicable
Sepsis
Sepsis Screening
Sepsis Assessment: Severe Sepsis
Sepsis Screening: Lactate >2mmol/L and Hypotension
Sepsis Screen
Sepsis Screen: Severe Sepsis
Date: 05/31/24
Time: 14:30
Course
Orders/Labs/Results
Orders:
Orders
05/31/24 10:58
Electrocardiogram (*1) Urgent
Reason for Study: Chest Pain
Cardiac Monitoring- Treatment ONCE
EKG- Treatment ONCE
IV Insert/Care/Rem.- Treatment PRN
O2 Therapy [RESP] Urgent
Titrate/Wean O2 to maintain O2 sat greater than (%): 90
Special Instructions: Maintain sats >/=90%
Pulse Ox/spot Check [RESP] Urgent
Quantity: 1
Special Instructions: ON ROOM AIR
05/31/24 11:05
Basic Metabolic Panel Urgent
COVID-19 Antigen Urgent
Source: Nasal Swab
Complete Blood Count/With Diff Urgent
Lactic Acid Urgent
Influenza A+B Rapid Molecular Urgent
REHANA Source: Nasal Swab
Specimen Description:
05/31/24 11:37
0.9% Sodium Chloride 1000 ml [Nss] 1,000 ml IV BOLUS
05/31/24 11:51
NT-proBNP Urgent
Troponin I Urgent
Comment: \\
Blood Culture Q30M
REHANA Source: Blood/Venous
Specimen Description:
Blood Culture Q30M
REHANA Source: Blood/Venous
Specimen Description:
05/31/24 11:59
Urinalysis Reflex To Culture Urgent
Date Specimen was Collected: 05/31/24
Time Specimen was Collected: 11:56
Urine Microscopic Reflex Cult Urgent
05/31/24 12:30
Basic Metabolic Panel Urgent
05/31/24 12:34
CT Chest PE Study Urgent
Comment:
Reason For Exam: hypoxia, tachy, SOB
05/31/24 12:35
0.9% Sodium Chloride 1000 ml [Nss] 1,000 ml IV BOLUS
Cefepime HCl [Maxipime] 2,000 mg IV NOW STA
05/31/24 12:41
Vancomycin [Vancocin] 1,500 mg 0.9% Sodium Chloride 500 ml [Nss] 500 ml IV NOW
05/31/24 12:47
Sterile Water [Sterile Water For Injection] 10 ml .ROUTE .STK-MED ONE
05/31/24 12:49
Sterile Water [Sterile Water For Injection] 10 ml .ROUTE .STK-MED ONE
05/31/24 14:09
CMP [Comprehensive Metabolic Panel] Urgent
Abnormal Lab Results
05/31/24 05/31/24 05/31/24
11:05 11:51 11:59
WBC 21.9 H 10^3/uL
(4.8-10.8)
Abs Immat Gran (auto) 0.2 H 10^3/uL
(0-0.05)
Absolute Neuts (auto) 19.0 H 10^3/uL
(1.4-6.5)
Absolute Monos (auto) 0.7 H 10^3/uL
(0.1-0.6)
Immature Gran % 0.9 H %
(0-0.5)
Neutrophils % 86.9 H %
(42.2-75.2)
Lymphocytes % 6.9 L %
(20.5-51.1)
Chloride
Carbon Dioxide 17 L mmol/L
(22-30)
Creatinine
Glucose 195 H mg/dl
(70-99)
Lactic Acid 3.7 H mmol/L
(0.7-2.0)
Calcium
Troponin I 0.547 H* ng/ml
Urine Ketones 1+ A
(Negative)
Ur Occult Blood Reflex 4+ A
(Negative)
Urine RBC 50-60 A /HPF
(0-2)
Urine Bacteria (Reflex) Few A
(Negative)
Urine Glucose 3+ A
(Negative)
Urine Albumin (Reflex) 2+ A
(Neg - Trace)
05/31/24
12:30
WBC
Abs Immat Gran (auto)
Absolute Neuts (auto)
Absolute Monos (auto)
Immature Gran %
Neutrophils %
Lymphocytes %
Chloride 123 H mmol/L
(98-107)
Carbon Dioxide 13 L* mmol/L
(22-30)
Creatinine 0.5 L mg/dL
(0.7-1.3)
Glucose
Lactic Acid
Calcium 5.0 L* D mg/dl
(8.4-10.2)
Troponin I
Urine Ketones
Ur Occult Blood Reflex
Urine RBC
Urine Bacteria (Reflex)
Urine Glucose
Urine Albumin (Reflex)
05/31/24 11:05
Vital Signs
Initial and Last Documented VS:
Initial Vital Signs
Temp Pulse Resp Pulse Ox
97.6 F 118 23 92
05/31/24 10:58 05/31/24 10:58 05/31/24 10:58 05/31/24 10:58
Last Documented Vital Signs
Temp Pulse Resp BP Pulse Ox
97.6 F 120 21 96/65 93
05/31/24 10:58 05/31/24 11:20 05/31/24 11:20 05/31/24 11:20 05/31/24 11:20
MDM/Problems Addressed
MDM/Problems Addressed:
73-year-old male with history of CVA with residual right-sided weakness, neurogenic bladder with chronic indwelling Rey, hypertension, diabetes presenting for hypoxia and cough. Vital signs on arrival are significant for tachycardia and hypoxia.
On exam, patient is resting comfortably, mild increased work of breathing. He is afebrile, nontoxic, however from a respiratory standpoint, requiring supplemental O2. In the setting of cough and hypoxia, concern for pneumonia versus viral
respiratory infection. Patient is meeting SIRS criteria. Will add lactic acid. Recent admission for sepsis.
11:50 -lactic acid is 3.7. Patient also with leukocytosis and mildly low blood pressure. Adding on cultures and starting patient on IV fluids
12:30 -patient's troponin is also elevated. Patient without chest pain, however concern for heart strain or ischemic demand. In the setting of tachycardia, hypoxia and elevated troponin, we will proceed with CT PE study
13:15 -calcium reported as 5, however suspected error, with preceding BMP today with a normal calcium. Will send additional sample
14:10 - CT is consistent with pneumonia, possibly aspiration. Antibiotics had already been ordered. Plan for admission
*EKG
Interpreted by ED Provider?: Yes
EKG Intrepretation Date: 05/31/24
EKG Intrepretation Time: 11:11
Interpretation: normal
Comparison EKG: no changes (05/23/24)
Heart Rate: 120
Rate: tachycardiac
Rhythm: sinus
[place]: left axis deviation
Interval: normal interval
QRS Pattern: normal QRS
Ischemia: non-specific ST changes
*Critical Care Note
Total Time (30-74mins, 75-104mins- exclusive of procedures): 42
comment:
The high probability of a clinically significant, sudden or life threatening deterioration of the pulmonary system(s), sepsis, required my full and direct attention, intervention and personal management. The aggregate critical care time was 42
minutes. This time is in addition to time spent performing reported procedures but includes the following:
[x] Data Review and interpretation
[x] Patient assessment and monitoring of vital signs
[x] Documentation
[x] Medication orders and management
ED Attending Note
-
Portions of this chart may have been created with voice recognition software.� Occasional wrong word or��sound alike� substitutions may have occurred due to the inherent limitations of voice recognition software.
Discharge Plan
Departure
Patient Disposition: Admit
Date of Disposition: 05/31/24
Time of Disposition: 14:14
Presentation/result/management discussed w/ accepting MD/DO: Hospitalist
Patient with high blood pressure during this ER visit?: No
Condition: Fair
Discharge Problem:
Multifocal pneumonia, Sepsis
Prescriptions:
No Action
lamotrigine 200 MG tablet
200 mg PO DAILY
lisinopril 40 MG tablet
40 mg PO DAILY
Janumet 50-500 mg Tablet
1 tab PO BID
thiamine HCl (vitamin B1) 100 MG tablet
100 mg PO DAILY
tamsulosin 0.4 mg Capsule
0.4 mg PO DAILY Qty: 1 0RF
atorvastatin 80 mg Tablet
80 mg PO HS
acetaminophen 325 mg Tablet
650 mg PO Q6HPRN PRN (Reason: FEVER>100/MILD PAIN)
cyanocobalamin (vitamin B-12) 1,000 mcg Tablet
1,000 mcg PO DAILY
diphenoxylate-atropine 2.5-0.025 mg Tablet
1 tab PO Q6HPRN PRN (Reason: DIARRHEA)
amlodipine 5 mg Tablet
5 mg PO DAILY
magnesium hydroxide [Milk of Magnesia] 400 mg/5 mL Suspension
2,400 mg PO [id number] PRN (Reason: NO BM FOR 3 DAYS)
bisacodyl 10 mg Suppository
10 mg MN DAILYPRN PRN (Reason: MOM INEFFECTIVE)
Fleet Enema 19-7 gram/118 mL Enema
118 ml MN DAILYPRN PRN (Reason: BISACODYL INEFFECTIVE)
aspirin 81 mg Tablet,Chewable
81 mg PO DAILY
melatonin 5 MG tablet
5 mg PO HS
bupropion HCl 300 mg Tablet Extended Release 24 Hr
300 mg PO DAILY
insulin glargine 100 unit/mL Solution
12 unit SC HS
aripiprazole [Abilify] 5 mg Tablet
5 mg PO DAILY
Referrals:
Gordo Medeiros I., DO [Family Provider] -
Interventions
Interventions:
*Risk Screen - Suicide Last Done: 05/31/24 10:58
*General Assessment Last Done: 05/31/24 10:58
*Neglect/Abuse Screening Last Done: 05/31/24 10:58
*ED- Fall Risk Assessment Last Done: 05/31/24 10:58
*ED COVID-19 Vaccine History Last Done: 05/31/24 10:58
ED- Cardiac Assessment Last Done: 05/31/24 10:58
ED- Pulmonary Assessment Last Done: 05/31/24 10:58
Discharge Date and Time
Print Language: KHMER
[2024-05-31 11:19] LABS: % Basophils 0.5 % (0-2); % Eosinophils 1.5 % (0-6); % Immature Granulocytes 0.9 % (0-0.5); % Lymphocytes 6.9 % (20.5-51.1); % Monocytes 3.3 % (1.7-9.3); % Neutrophils 86.9 % (42.2-75.2); Absolute Basophils 0.1 10^3/uL (0-0.2); Absolute Eosinophils 0.3 10^3/uL (0-0.7); Absolute Immature Granulocytes 0.2 10^3/uL (0-0.05); Absolute Lymphocytes 1.5 10^3/uL (1.2-3.4); Absolute Monocytes 0.7 10^3/uL (0.1-0.6); Hematocrit 42.9 % (39.0-52.0); Hemoglobin 14.3 g/dL (13.0-18.0); Mean Corp Hgb Conc. 33.3 g/dL (33.0-37.0); Mean Corpuscular Hgb 29.7 pg (27.0-31.0); Mean Corpuscular Volume 89.2 fL (80.0-94.0); Mean Platelet Volume 9.9 fL (7.4-10.4); Nucleated Red Blood Cells % 0 % (-); Platelet Count 379 10^3/uL (130-400); Red Blood Cell Count 4.81 10^6/uL (4.70-6.10); Red Cell Dist. Width 13.7 % (11.5-14.5); White Blood Cell Count 21.9 10^3/uL (4.8-10.8)
[2024-05-31 11:42] LABS: COVID-19 Antigen Negative (Negative)
[2024-05-31 11:45] LABS: Lactic Acid 3.7 mmol/L (0.7-2.0)
[2024-05-31] MEDS: NSS 1000 IV ×3 (11:55→17:33)
[2024-05-31 12:00] LABS: Blood Urea Nitrogen 15 mg/dl (9-20); Calcium 9.3 mg/dl (8.4-10.2); Carbon Dioxide 17 mmol/L (22-30); Chloride 105 mmol/L (98-107); Estimated Creatinine Clearance 81 ml/min; Glucose 195 mg/dl (70-99); Sodium 137 mmol/L (135-145); eGFR > 60.00
[2024-05-31 12:18] LABS: Urine Albumin 2+ (Neg - Trace); Urine Bilirubin Negative (Negative); Urine Character Clear (Clear); Urine Color Yellow; Urine Glucose 3+ (Negative); Urine Ketone 1+ (Negative); Urine Leukocyte Negative (Negative); Urine Nitrite Negative (Negative); Urine Occult Blood 4+ (Negative); Urine Urobilinogen 1+ (Neg - 1+)
[2024-05-31 12:29] LABS: NT-proBNP 136 pg/ml; Troponin I 0.547 ng/ml
[2024-05-31 12:43] LABS: Urine Bacteria Few (Negative); Urine Mucus Few; Urine Red Blood Cell 50-60 /HPF (0-2); Urine Squamous Cell 0-2 /LPF (Few); Urine White Cell 0-2 /HPF (0-5)
[2024-05-31] MEDS: MAXIPIME 2000 MG IV (12:56)
[2024-05-31] MEDS: VANCOCIN 530 MG IV (12:57)
[2024-05-31 13:10] LABS: Blood Urea Nitrogen 10 mg/dl (9-20); Carbon Dioxide 13 mmol/L (22-30); Chloride 123 mmol/L (98-107); Estimated Creatinine Clearance 109 ml/min; Glucose 81 mg/dl (70-99); Sodium 141 mmol/L (135-145); eGFR > 60.00
[2024-05-31 14:38] LABS: ALT (SGPT) 19 U/L (0-50); AST (SGOT) 20 U/L (17-59); Albumin 3.8 g/dl (3.5-5.0); Alkaline Phosphatase 104 U/L (38-126); Blood Urea Nitrogen 14 mg/dl (9-20); Calcium 8.3 mg/dl (8.4-10.2); Carbon Dioxide 20 mmol/L (22-30); Chloride 108 mmol/L (98-107); Estimated Creatinine Clearance 93 ml/min; Glucose 79 mg/dl (70-99); Potassium 3.9 mmol/L (3.5-5.1); Sodium 139 mmol/L (135-145); Total Bilirubin 0.4 mg/dl (0.2-1.3); Total Protein 6.2 g/dl (6.3-8.2); eGFR > 60.00
--- NOTE | 2024-05-31 14:56 | HPS.HSE ---
Family Physician
-
Family Physician: Gordo Medeiros
Chief Complaint
-
Cough, hypoxia
History of Present Illness
73-year-old male from senior care facility where he was noted to be hypoxic at 60%. The patient reported he ate egg casserole and a bite of an French muffin as soon as he started eating he states he started to cough up his breakfast and then
started having shortness of breath. He was noted to be hypoxic at 60% per [facility]. Per EMS on their arrival he was 80% on 4 L nasal cannula he is currently 93% on 3 L nasal cannula. He is currently stable on 3 L nasal
cannula awake and alert not lethargic. He is complaining of right leg cramping. He has past medical history of CVA with cognitive impairment short and long-term he is currently oriented to name, year, place but not all of history patient unsure
when he had his stroke could not remember he had history of DVT right lower extremity
The patient had a recent admission 05/18 - 05/24/2024 for catheter associated UTI with urine culture growing Pseudomonas Enterococcus and Morganella he was discharged on Bactrim and Levaquin through 05/21/2024 while inpatient he did have Rey catheter
exchanged. He also had obstructive PAOLO, gross hematuria with clots which was corrected with Rey catheter exchange/IV fluids. His metabolic acidosis resolved in setting of sepsis.
The patient has past medical history of neurogenic bladder, BPH with chronic Rey catheter, recent Pseudomonas Enterococcus Morganella in urine culture on 05/31/2024, history of metabolic encephalopathy in setting of sepsis, PAOLO due to sepsis and
obstructive PAOLO from urinary clots, DM2, HTN�benign, CVA with right residual weakness 2013, GERD, IBS depression, Right lower extremity DVT secondary to immobility requiring treatment with thrombolysis and balloon angioplasty 08/30.
Medical History
Past Medical History
Past Medical History: Reports Other
Additional Past Medical History:
Neurogenic bladder with chronic Rey catheter
BPH
05/18 - 05/24/2024 for catheter associated UTI with urine culture growing Pseudomonas Enterococcus and Morganella
05/18/2024 obstructive PAOLO, gross hematuria with clots which was corrected with Rey cather
DM2
HTN�benign
CVA with right residual weakness 2014 chronic right arm contracture
Chronic bedbound status secondary to CVA
IBS
Depression
Bipolar disorder
Right lower extremity DVT secondary to immobility requiring treatment with thrombolysis and balloon angioplasty 08/30
History of alcohol abuse daily 1 bottle of wine-sober since 09/02/2016
Herniated disks lower back
Past Surgical History: Reports Other
Additional Past Surgical History:
Right lower extremity DVT secondary to immobility requiring treatment with thrombolysis and balloon angioplasty 08/30
Tonsillectomy
Right knee arthroscopy
Bilateral bunionectomy
Social History
Tobacco: Non-smoker
Alcohol: Former (1 bottle a day sober since 09/02/2016)
Personal: Single
Living: Custodial ([facility])
Employment: Disabled
Family History
Family History: Unable to Obtain
Allergies / Home Medications
Allergies reflects when Allergies were last updated in [employer].
Home Medications with original date entered in [employer]
Allergy/Medication List:
Allergies
Allergy/AdvReac Type Severity Reaction Status Date / Time
influenza virus vaccine, Allergy made him Verified 05/18/24 22:07
specific sick and
got the flu
steri strips Allergy Rash Uncoded 04/14/24 14:02
Home Medications
lamotrigine 200 mg tablet 200 mg PO DAILY Mental Health/Anxiety 09/10/20
lisinopril 40 mg tablet 40 mg PO DAILY Blood pressure 09/10/20
sitagliptin phosphate 50 mg-metformin 500 mg tablet (Janumet) 1 tab PO BID Diabetes 04/14/24
thiamine HCl (vitamin B1) 100 mg tablet 100 mg PO DAILY Supplement 04/15/24
tamsulosin 0.4 mg capsule 0.4 mg PO DAILY #1 cap 04/19/24
acetaminophen 325 mg tablet 650 mg PO Q6HPRN PRN FEVER>100/MILD PAIN 05/18/24
amlodipine 5 mg tablet 5 mg PO DAILY Blood Pressure 05/18/24
aspirin 81 mg chewable tablet 81 mg PO DAILY Blood Clot Prevention/Tx 05/18/24
atorvastatin 80 mg tablet 80 mg PO HS High Cholesterol 05/18/24
bisacodyl 10 mg rectal suppository 10 mg DC DAILYPRN PRN MOM INEFFECTIVE 05/18/24
bupropion HCl 300 mg 24 hr tablet, extended release 300 mg PO DAILY Depression 05/18/24
cyanocobalamin (vitamin B-12) 1,000 mcg tablet 1,000 mcg PO DAILY Supplement 05/18/24
diphenoxylate-atropine 2.5 mg-0.025 mg tablet 1 tab PO Q6HPRN PRN DIARRHEA 05/18/24
magnesium hydroxide 400 mg/5 mL oral suspension (Milk of Magnesia) 2,400 mg PO [id number] PRN NO BM FOR 3 DAYS 05/18/24
melatonin 5 mg tablet 5 mg PO HS Sleep 05/18/24
sodium phosphates 19 gram-7 gram/118 mL enema (Fleet Enema) 118 ml DC DAILYPRN PRN BISACODYL INEFFECTIVE 05/18/24
aripiprazole 5 mg tablet (Abilify) 5 mg PO DAILY 05/31/24
insulin glargine 100 unit/mL subcutaneous solution 12 unit SC HS 05/31/24
Review of Systems
-
History Source: Patient
A 12 point ROS was completed and negative except as noted: Yes
Constitutional: Denies Fever, Fatigue or Chills
EENT: Denies Sore Throat or Runny Nose
Respiratory: Reports Cough (Earlier today while eating a casserole and bite of French muffin); Denies Trouble Breathing
Cardiac: Denies Chest Pain, Diaphoresis, Palpitations or Syncope
Abdomen/GI: Denies Abdominal Pain, Nausea, Vomiting, Diarrhea, Constipated, Bloody Stools or Black Stools
: Reports Rey (Draining yellow in color)
Musculoskeletal: Reports Muscle Pain (Right calf pain) and Other (Chronic right hemiplegia, contracture right arm bent at elbow and wrist to chest); Denies Joint Pain or Edema
Skin: Denies Itching or Rash
Neurological: Denies Dizzy, Headache or Weakness
Endocrine: Reports No Symptoms
Hematologic/Lymphatic: Reports No Symptoms
Psych: Reports Calm
Physical Exam
Vital Signs
Vital Signs
Temp Pulse Resp BP Pulse Ox
97.6 F 120 21 96/65 93
05/31/24 10:58 05/31/24 11:20 05/31/24 11:20 05/31/24 11:20 05/31/24 11:20
Physical Exam
General: Conversant, Pain (Right lower extremity) and Other (Chronic memory impairment secondary to prior stroke); No Fever
HEENT: NormoCephalic, Anicteric, PERRLA, [place] Conjunctivae, No Ptosis and Oxygen (3 L nasal cannula)
Respiratory: Clear; No Wheezes, Rales or Rhonchi
Cardiac: S1/S2 and Regular Rhythm; No Murmur, Rub, Gallop or Peripheral Edema
Breast: Deferred by me
GI: Soft, Non Tender, Non Distended, Normal Bowel Sounds and No Hepatosplenomegaly
Rectal: Deferred by Provider
Genito-urinary: Rey (Present on admission yellow in color)
Musculoskeletal: No Clubbing, No Cyanosis, No Edema and Other (Chronic right hemiplegia, contracture right arm bent at elbow and wrist to chest)
Skin: Warm and Dry; No Rash
Neuro: Awake, Alert, Oriented (To name, year, some of history only was not aware had history of DVT unsure year of stroke) and Other (Chronic right hemiplegia, contracture right arm bent at elbow and wrist to chest); No Slurred Speech or Facial Droop
Psych: Calm
Laboratory Results
-
05/31/24 11:05
05/31/24 14:09
Laboratory Results
Lactic Acid 3.7 mmol/L (0.7-2.0) H 05/31/24 11:05
Total Bilirubin 0.4 mg/dl (0.2-1.3) 05/31/24 14:09
AST 20 U/L (17-59) 05/31/24 14:09
ALT 19 U/L (0-50) 05/31/24 14:09
Alkaline Phosphatase 104 U/L (38-126) 05/31/24 14:09
Troponin I 0.547 ng/ml H* 05/31/24 11:51
Data Reviewed
-
Lab Data: Labs Reviewed by me
Impression/Plan
-
Impression/plan:
Admit to IMU
#Septic shock secondary to 2/2 RLL PNA-likely aspiration
#Acute hypoxic respiratory insufficiency 2/2 mild bronchitis and RLL aspiration PNA
WBC 21.9 with left shift, HR 120, 97.6F,
90% RA, 93% 3 LNC
COVID/influenza negative
-2 L IV NSS given in ER sepsis bolus, continue IV NSS 100 cc/h EF normal 55-60% on echo 04/18/2024
-Blood cultures x 2
-Lactic acid 3.7 will follow
-IV cefepime, IV Vancomycin given in ER
-Will give IV vancomycin, IV Zosyn for aspiration coverage
-Speech swallow eval
-Incentive spirometry
-Consult PT/OT/case management
CT PE study:
1.) Mild amount of centrilobular ground-glass opacity in the RIGHT LOWER LOBE superior, posterior basilar, and lateral basilar segments and in the posterior right upper lobe which is most consistent with
MILD PNEUMONIA (possibly aspiration pneumonia).
2.) Mild bronchial wall thickening in the lower lobes consistent with mild bronchitis. Endobronchial filling defects in the posterior basilar segmental bronchus of the right lower lobe which is
probably secondary to endobronchial infection.
3.) Severe calcific atherosclerotic plaque in the coronary arteries.
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
#Hypotensive shock secondary to sepsis/PNA
#Hx HTN�benign
BP 96/65 > 127/79 improving
-2 L IV NSS sepsis bolus given, continue IV NSS 100 cc/h
-Hold lisinopril 40 mg daily, amlodipine 5 mg daily
# Nonischemic myocardial injury secondary to Septic shock and Hypoxia
Reported hypoxia 60% at half-way, 80% by EMS on arrival and 90% on room air upon arrival in ER
- Currently 93% 3 L nasal cannula
Troponin 0.547 will trend
-Follows with [facility]
EKG: Sinus tach 120 bpm, QTc 449 MS prior inferior infarct no significant change compared to May 23, 2024
2D echo 04/18/2024: Left ventricle small in size, EF 55-60%, normal LVSF, normal diastolic function, wall motion analysis limited by image quality no change from March 2013
#Right lower extremity cramping concern for DVT
#Right lower extremity DVT secondary to immobility requiring treatment with thrombolysis and balloon angioplasty 08/30.
-Will check venous duplex bilateral leg since chronic immobile/bedbound
#DM2
Accu-Cheks with SSI
Recent A1c 5.91 on 05/19/2024
-Hold Janumet 1 tab twice daily, continue insulin glargine At half dose 6 units at bedtime instead of 12 units until patient seen and cleared by speech to eat
#Recent sepsis secondary to CAUTI(Rey present on admission) urine retention with history of neurogenic bladder and BPH with Chronic Rey
#Recent gross hematuria with clots
-Patient had Rey cath replaced during hospitalization 05/18 - 05/24/2024-Rey cath present on admission
Urine culture grew: Pseudomonas enterococcus and Morganella and he was discharged on Bactrim and Levaquin through 05/31/2024.
-Current urinalysis negative with Rey cath draining yellow in color clear
-Continue Flomax 0.4 mg daily
-Monitor LAILA
#Hx recent obstructive acute injury-resolved
Creat 0.7
-Rey catheter draining yellow in color, UA negative, per MAR completed Bactrim and Levaquin on 05/29/2024
-Follow BMP
#Hx recent metabolic encephalopathy secondary to Cauti-resolved
#Hx LEFT hemispheric CVA in 2013 with right hemiparesis and cognitive impairment short and long-term
#Currently oriented to name, place year but not history
-Continue aspirin 81 mg daily, atorvastatin 80 mg at bedtime
-Hold amlodipine 5 mg daily due to hypotension
#Chronic bedbound secondary to CVA
#Chronic right arm contracture bent at elbow to chest very limited movement approximately 5 degrees off chest
Consult PT/OT/case management
#Bipolar disorder
#Depression
-Patient states he started Abilify 4 days ago this does concur with his MAR as he still is depressed
-Continue Wellbutrin 300 mg daily, Lamictal 200 mg p.o. daily
#Prior alcohol abuse
States used to drink 1 bottle of wine daily sober since 09/02/2016
-Continue thiamine 100 mg daily, B12 supplement
#hx Severe DISH in the thoracic spine
Continue Tylenol as needed
Per MAR used to be on meloxicam appears it was stopped On recent admission 05/24/2024 due to PAOLO and history of stroke
DVT prophylaxis
Subcu Lovenox until venous Dopplers pending
DNR per patient and on chart
--- NOTE | 2024-05-31 15:59 | W.PN.UPDATE ---
Update Note
Progress Note Update
This note serves as an addendum to the H&P by sports administrator BRAD Aura RUSHING
HPI
73M Former ETOH use disorder from SNF HX CVA with residual right-sided weakness, Post CVA, cognitive impairment , neurogenic bladder, chronic indwelling Rey, hypertension, diabetes
- pw cough and hypoxia
- at the facility noted to be hypoxic to 60%.
- start coughing this morning, productive.
Recent hospital admission, (05/18 to 05/24) for sepsis from urinary source, PAOLO, metabolic encephalopathy.
Not Home O2 dependent.
EMS
- on their arrival patient was on 4 L, 80% saturations.
At ER
Hypotensive/tachy/hypoxic
Leukocytosis and lactate 3.7.
Troponin bumped
ROS
Denies fever.
Denies chest pain.
Vital Signs
Temp Pulse Resp BP Pulse Ox
97.6 F 120 21 96/65 93
05/31/24 10:58 05/31/24 11:20 05/31/24 11:20 05/31/24 11:20 05/31/24 11:20
PE
Gen: lethargic
HEENT: anicteric
Neck: supple
Lungs: limited exam
Cor: RRR
Abdomen: soft
; POS F cath
LIQUID HYDROGEN PLANT OPERATOR: Rt sided hemiparesis with f contracture of Rt hand
MS: no edema
Psych: mt ot examine due to lethargy
Selected Entries
05/31/24
10:58 05/31/24
11:01 05/31/24
11:02
Temp 97.6 F
Pulse 118
Blood pressure 105/68
SaO2 92 90
Oxygen Mode of Delivery Room air
Nasal Cannula flow liters per minute
05/31/24
11:11 05/31/24
11:15
Temp
Pulse
Blood pressure 96/68
SaO2
Oxygen Mode of Delivery
Nasal Cannula flow liters per minute 3
Laboratory Tests
05/24/24 05/31/24 05/31/24
06:59 11:05 11:51
WBC 10.7 21.9 H
Hgb 12.3 L 14.3
Plt Count 313 379
MPV 9.9 9.9
Sodium
Chloride
Carbon Dioxide
BUN
Creatinine
eGFR
Glucose
Calcium
Troponin I 0.547 H*
Rts-Z-Sqrmeklubfm Pept 136
Total Protein
Leukocyte Esterase Rfl
Urine RBC
Urine WBC (Reflex)
SARS-CoV-2 Antigen Negative
05/31/24 05/31/24 05/31/24
11:59 14:09 18:00
WBC
Hgb
Plt Count
MPV
Sodium 139
Chloride 108 H
Carbon Dioxide 20 L
BUN 14
Creatinine 0.7
eGFR > 60.00
Glucose 79
Calcium 8.3 L D
Troponin I Pending
Kqe-V-Tjgmyrqcjkb Pept
Total Protein 6.2 L
Leukocyte Esterase Rfl Negative
Urine RBC 50-60 A
Urine WBC (Reflex) 0-2
SARS-CoV-2 Antigen
NEG Flu A & B
NEG Covid
BCx sent
CT Chest PE Study
1. Mild amount of centrilobular ground-glass opacity in the RIGHT LOWER LOBE superior, posterior basilar, and lateral basilar segments and in the posterior right upper lobe which is most consistent with MILD PNEUMONIA (possibly aspiration
pneumonia).
2. Mild bronchial wall thickening in the lower lobes consistent with mild bronchitis. Endobronchial filling defects in the posterior basilar segmental bronchus of the right lower lobe which is probably secondary to endobronchial infection.
3. Severe calcific atherosclerotic plaque in the coronary arteries.
4. Severe DISH in the thoracic spine.
EKG
SINUS TACHYCARDIA
LEFT AXIS DEVIATION
INFERIOR INFARCT (CITED ON OR BEFORE 14-JUN-2013)
ABNORMAL ECG
WHEN COMPARED WITH ECG OF 23-MAY-2024 14:42,
NO SIGNIFICANT CHANGE WAS FOUND
Confirmed by LUKE PALACIOS MD, LITO ([id number]) on 05/31/2024 11:31:52 AM
04/18/24 TTE
LVEF 55-60
Normal diastolic function.
Since echo March 2013, there is no significant change.
Last hospitalist admission: 05/18/2024 - 05/24/2024
1. Catheter-associated UTI
2. Obstructive PAOLO
3. Urosepsis.
4. Metabolic encephalopathy.
ASSESSMENT & PLAN
Sepsis due to PNA presumed aspiration; CTC PE No PE. But shows multifocal PNA
Asso. acute hypoxic RI supporting on 3 L NC O2
- Recently hospitalized 05/18 to 05/24) for sepsis due to CAUTI complicated by encephalopathy
- Rey catheter was exchanged on last hospitalization
- Empiric ABX; agree with IV Vanco. Switched to Zosyn in place of CFP due to probably aspiration PNA
- BCx
- Septic Fluid and IVF
Elevated TPNI suspect NIMI vs. T2 OK ( Ischemic imbalance due to supply & demand mismatch in setting of acute Hypoxia
- no CP
- No EKG changes
- Trend TPNI
At risk for TME
Recent HX Metabolic encephalopathy secondary to sepsis
- Currently AO x 3
- Continue to monitor MSE
IDDMT2
- c/w Lantus but 50 % on DIRT BIKE MECHANIC dose
- Janumet held,
- added on ISS low
- Blood glucose goal 140-180
Primary HTN
- Home medications include lisinopril and amlodipine; initially held now can resume with rising BP And improved renal function
H/O CVA with residual right sided weakness
B/L fixed contracture of Rt hand > Lt hand
- Unclear etiology; no known history of AF/AFL; possibly cerebrovascular in origin
- Home regimen includes high intensity statin and baby aspirin
Depression
- Home regimen includes lamotrigine as mood stabilizer, Abilify, and bupropion
- Mood appears stable at this time
Rt CONNOR cramp pain
HX Rt DVT August 2016 requiring Thrombolysis and Balloon angioplasty
Currently not on AC
- US both legs
DVT Px: LMWH
DNR
ICU
[2024-05-31] MEDS: FLAGYL 500 MG 100 IV (17:33)
[2024-05-31 18:52] LABS: Glucose - Point of Care 74 mg/dl (70-99)
[2024-05-31] MEDS: LOVENOX 40 MG SC (18:58)
[2024-05-31 19:03] LABS: Lactic Acid 2.1 mmol/L (0.7-2.0)
--- NOTE | 2024-05-31 19:26 | PHA.VAN.IN ---
Assessment
- Assessment
Renal Function: Appears similar to baseline
AUC Dosing Plan
- Dosing Variables
Dosing Weight (kg): 69
Dosing CrCl (ml/min): 81
Vd coefficient (L/kg): 0.7
- Empiric Dosing
Initial / Loading Dose: vanc 1500mg administered @ 1257
Maintenance Regimen: vanc 750mg Q12H
Estimated AUC (mcg*h/mL): 449
Estimated Peak (mcg*h/mL): 26.9
Estimated Trough (mcg/ml): 12.2
Estimated Half Life (H): 9.7
- Monitoring
No levels ordered at this time: consider levels in next few days
MRSA Screen: Ordered per protocol
Pharmacokinetics Vancomycin I
- -
Patient Age: 73
Patient Sex: Male
Vancomycin Day #: 1
Indication: Pulmonary/Respiratory
Requesting Provider: Aura Curry
Pertinent Antimicrobial Allergies:
no pertinent antimicrobial allergies
Height / Weight:
Height 5 ft 11 in
Actual Weight 69 kg
Pertinent Past Medical History: chronic bedbound status
- Vital Signs / Lab Results
Temp Pulse Resp BP Pulse Ox
97.6 F 102 22 122/77 100
05/31/24 10:58 05/31/24 18:43 05/31/24 18:43 05/31/24 18:43 05/31/24 18:43
Lab Results - Hematology
05/31/24
11:05
WBC 21.9 H
Lab Results - Chemistry
05/31/24 05/31/24 05/31/24
11:05 11:51 12:30
BUN 15 Cancelled 10
Creatinine 0.8 Cancelled 0.5 L
Estimated Creat Clear 81 Cancelled 109
Albumin Cancelled Cancelled Cancelled
05/31/24
14:09
BUN 14
Creatinine 0.7
Estimated Creat Clear 93
Albumin 3.8
05/31/24 05/31/24
11:05 18:43
Lactic Acid 3.7 H 2.1 H
Lab Results - Urine
05/31/24
11:59
Urine Nitrite (Reflex) Negative
Leukocyte Esterase Rfl Negative
Urine WBC (Reflex) 0-2
Ur Squamous Epith Cells 0-2
Urine Bacteria (Reflex) Few A
Microbiology Results
05/31/24 11:05 Influenza Types A & B (CRISTIANO) - Final
Nasal Swab Negative for Influenza A & B, NAAT
Negative results must be combined with clinical observations
and patient history.
Nucleic Acid Amplification test (NAAT)performed on the
[employer] platform.
[2024-05-31] MEDS: ZOSYN 50 IV (21:00)
[2024-05-31] MEDS: OFIRMEV 100 IV (21:37)
[2024-05-31] MEDS: MELATONIN PO (21:42)
[2024-05-31] MEDS: LIPITOR PO (21:42)
--- NOTE | 2024-05-31 21:49 | PTCARENOTE ---
pt c/o RLE leg cramping. 4/10 up to 8/10 pain. REID Henriquez made aware. order for IV tylenol x1 given.
pt passed bedside RN swallow eval with sips of water. PO meds held for safety as pt has hiccups after sips of water, but no coughing or signs of aspiration. pt has baseline aphasia and forgetfulness.
[2024-05-31 23:22] LABS: Glucose - Point of Care 79 mg/dl (70-99)
[2024-05-31] MEDS: LANTUS SC (23:26)
[2024-06-01] VITALS (10 sets, daily range): BP systolic 105–165; BP diastolic 62–86; BMI 20.7
[2024-06-01 00:25] LABS: Lactic Acid 1.3 mmol/L (0.7-2.0)
[2024-06-01] MEDS: ZOSYN 50 IV ×4 (02:59→20:18)
[2024-06-01 05:26] LABS: Glucose - Point of Care 69 mg/dl (70-99)
[2024-06-01] MEDS: DEXTROSE 50% SYRINGE 12.5 GRAMS IV (05:30)
[2024-06-01] MEDS: VANCOCIN 150 IV (05:34)
[2024-06-01] MEDS: NSS 1000 IV (05:34)
[2024-06-01 05:36] LABS: % Basophils 0.6 % (0-2); % Eosinophils 1.1 % (0-6); % Immature Granulocytes 0.8 % (0-0.5); % Lymphocytes 6.6 % (20.5-51.1); % Monocytes 4.7 % (1.7-9.3); % Neutrophils 86.2 % (42.2-75.2); Absolute Basophils 0.1 10^3/uL (0-0.2); Absolute Eosinophils 0.2 10^3/uL (0-0.7); Absolute Immature Granulocytes 0.2 10^3/uL (0-0.05); Absolute Lymphocytes 1.4 10^3/uL (1.2-3.4); Absolute Neutrophils 18.7 10^3/uL (1.4-6.5); Hematocrit 39.3 % (39.0-52.0); Hemoglobin 13.2 g/dL (13.0-18.0); Mean Corp Hgb Conc. 33.6 g/dL (33.0-37.0); Mean Corpuscular Hgb 29.6 pg (27.0-31.0); Mean Corpuscular Volume 88.1 fL (80.0-94.0); Mean Platelet Volume 10.1 fL (7.4-10.4); Nucleated Red Blood Cells % 0 % (-); Platelet Count 300 10^3/uL (130-400); Red Blood Cell Count 4.46 10^6/uL (4.70-6.10); Red Cell Dist. Width 13.6 % (11.5-14.5); White Blood Cell Count 21.7 10^3/uL (4.8-10.8)
[2024-06-01 05:59] LABS: ALT (SGPT) 16 U/L (0-50); AST (SGOT) 25 U/L (17-59); Albumin 3.3 g/dl (3.5-5.0); Alkaline Phosphatase 89 U/L (38-126); Blood Urea Nitrogen 12 mg/dl (9-20); Calcium 8.9 mg/dl (8.4-10.2); Carbon Dioxide 19 mmol/L (22-30); Chloride 110 mmol/L (98-107); Estimated Creatinine Clearance 93 ml/min; Glucose 61 mg/dl (70-99); Potassium 4.2 mmol/L (3.5-5.1); Sodium 139 mmol/L (135-145); Total Protein 5.8 g/dl (6.3-8.2); eGFR > 60.00
--- NOTE | 2024-06-01 05:59 | DOWNTIME ---
There was a [employer] Client Senior Java Web Application Developer Downtime on 06/01/2024 from 0100 to 06/02/2023 at 0420 . Downtime documentation of patient's care, including medication administrations, has been reconciled in the electronic record per guidelines. Refer to the
patient's paper chart under the miscellaneous tab to see printed paper medication records and downtime forms.
[2024-06-01 06:00] LABS: Glucose - Point of Care 127 mg/dl (70-99)
--- NOTE | 2024-06-01 06:00 | PTCARENOTE ---
Blood sugar 69 this morning. Dextrose provided IV per protocol. Blood sugar recheck was 127. Pt asymptomatic.
Large BM in diaper. chronic jackson in place. NSR on tele. NPO pending speech eval. repositioning provided, heels floated. pt appreciative of care. call mckinnon within reach.
[2024-06-01 08:05] LABS: Glucose - Point of Care 92 mg/dl (70-99)
--- NOTE | 2024-06-01 08:40 | W.PN.HOSP.TC ---
Addendum entered and electronically signed by Maxim Woodson MD 06/01/24 15:19:
Sepsis on admission with hypoxia, elevated WBC
Original Note:
Today's Communication/Plan
-
see PN
Assessment / Plan
Assessment / Plan
73yo M with PMHx of ambulatory deficciency, HX of alcohol abuse, bedbound, with PMHx of CVA and R sided weakness, neurogenic bladder on chronic Rey, HTN, HLD, DM, depression came from SNF with cough started after breackfast, found hypoxia (O2sat
60%) and CT showed RLL pneumonia with bronchial impaction with mucus. Managed for aspiration pneumonia
A/P:
#Aspiration pneumonia with PMHx of dysphagia
#Acute hypoxic insufficiency - resolved
VAnco/Zosyn
Sputum Cx
Legionella and S.pneumonia urinary AG
Patient reported significant amount of mucus that he was coughing up day prior and has resolved hypoxia on the second day of admission - no need in Vest therapy
Mucinex
COVID-19 and Influenza PCR neg
ENTRY LEVEL ACCOUNTING CLERK: previously recommended for regular solids, thin liquids, start dysphagia diet
Bcx pending
#Liver cyst
#mild hiatal hernia
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
No follow up advised
#DISH
#DJD
tylenol
#Chronic urinary retention
cont Rey
#DM type 2 with neuropathy
Insulin, Accuchekcs, DM diet
Decrease Glagrine with hypoglycemia
#Essential HTN, multidrug resistant
#IBS
#Hx of RLL DVT s/p thrombolysis and angio in 2017
#HLD
#ASCVD
#Seizure d/o
#BPPH
#Hx of CVA
#Bipolar d/o
cont home meds
#Elevated troponin, suspect non-ischemic myocardial injury 2/2 hypoxia
follow troponin
EKG on admission without TWI or ST changes that could indicate ACS
No previous cardiac Hx. No chest pain reported by the patient
Cardiology cosnult
#Hx of DVT
no LE DVT on US
DVT ppx lovenox
DNR/DNI
I have spent at least 59min reviewing chart, test results, communication with consultants and providding direct patient care
Anticipated Discharge: > 48 hours
Subjective/Interval History
-
Date of Service: June 01, 2024
Objective Data
-
Labs:
Laboratory Results
06/01/24
05:08
WBC 21.7 H
Hgb 13.2
Hct 39.3
Plt Count 300 D
Sodium 139
Potassium 4.2
Chloride 110 H
Carbon Dioxide 19 L
BUN 12
Creatinine 0.7
Glucose 61 L
Calcium 8.9
Total Bilirubin 1.0
AST 25
ALT 16
Alkaline Phosphatase 89
Vital Signs:
Vital Signs
Temp Pulse Resp BP Pulse Ox
98.4 F 66 21 105/62 99
06/01/24 03:00 06/01/24 06:45 06/01/24 06:45 06/01/24 06:00 06/01/24 06:45
I&O
05/31/24 06/01/24 06/02/24
06:59 06:59 06:59
Intake Total 150 / 150
Output Total 1550 / 1550
Balance -1400 / -1400
Review of Systems
-
History Source: Patient
All other systems: Reviewed and negative
Physical Exam
-
General: No Apparent Distress and Comfortable
Respiratory: Clear to Auscultation
Cardiac: Regular Rhythm
GI: Soft, Nontender and Nondistended
Genito-urinary: Clear Urine and Rey
Neuro: Awake, Alert, Oriented, AO x 3 and Other (quadriparesis)
Psych: Calm
--- NOTE | 2024-06-01 08:45 | PTOTSP ---
Speech Language Pathology
Pt seen for clinical bedside swallow evaluation. Admitted after cough/low Sp02 following choking episode with muffin. Pt reported this has not happened to him before and endorsed PNA x1 in past. P.O. trials of jello, regular solids, and thin
liquids provided. Also seen for med pass with RN with meds whole with liquid, up to 3 at a time. Adequate mastication, bolus formation, and A-P transit noted with no oral residue. No overt signs of aspiration.
Recommend:
(1) VSE given choking episode as reason for admit
(2) Regular solids/thin liquids for now
(3) General aspiration precautions
(4) Meds as tolerated
(5) DATA BASE DESIGN ANALYST to continue to follow
[2024-06-01] MEDS: ABILIFY 5 MG PO (09:06)
[2024-06-01] MEDS: LAMICTAL 200 MG PO (09:07)
[2024-06-01] MEDS: WELLBUTRIN XL (24 hour extended release) 300 MG PO (09:07)
[2024-06-01] MEDS: LOW STRENGTH ASPIRIN 81 MG PO (09:07)
[2024-06-01] MEDS: VITAMIN B1 100 MG PO (09:09)
[2024-06-01] MEDS: MUCINEX 600 MG PO ×2 (09:09→20:20)
[2024-06-01] MEDS: VITAMIN B-12 1000 MCG PO (09:10)
[2024-06-01] MEDS: FLOMAX 0.4 MG PO (09:10)
--- NOTE | 2024-06-01 09:33 | PHA.VAN.FU ---
Vancomycin Assessment / Plan
- Assessment
Renal Function: Stable
WBC's are: Stable
In the past 24 hrs, patient has been: Afebrile
Concomitant Antimicrobials: piperacillin/tazobactam
- Dosing Plan
Continue: Vanc 750mg Q12H
- Monitoring Plan
No level(s) ordered at this time: consider levels in next few days
- Follow Up
Pharmacy will continue to follow.
Vancomycin Follow UP
- -
Patient Age: 73
Patient Sex: Male
Vancomycin Day #: 2
Indication: Pulmonary/Respiratory
Requesting Provider: Aura Curry
Pertinent Antimicrobial Allergies:
no pertinent antimicrobial allergies
Height / Weight:
Height 5 ft 11 in
Actual Weight 67.3 kg
Pertinent Past Medical History: chronic bedbound status
- Vital Signs / Lab Results
Temp Pulse Resp BP Pulse Ox
98.4 F 66 21 105/62 99
06/01/24 03:00 06/01/24 06:45 06/01/24 06:45 06/01/24 06:00 06/01/24 06:45
Lab Results - Hematology
05/31/24 06/01/24
11:05 05:08
WBC 21.9 H 21.7 H
Lab Results - Chemistry
05/31/24 05/31/24 05/31/24
11:05 11:51 12:30
BUN 15 Cancelled 10
Creatinine 0.8 Cancelled 0.5 L
Estimated Creat Clear 81 Cancelled 109
Albumin Cancelled Cancelled Cancelled
05/31/24 06/01/24
14:09 05:08
BUN 14 12
Creatinine 0.7 0.7
Estimated Creat Clear 93 93
Albumin 3.8 3.3 L
05/31/24 05/31/24 05/31/24
11:05 18:43 23:59
Lactic Acid 3.7 H 2.1 H 1.3
06/01/24
05:00
Lactic Acid Cancelled
Lab Results - Urine
05/31/24
11:59
Urine Nitrite (Reflex) Negative
Leukocyte Esterase Rfl Negative
Ur Squamous Epith Cells 0-2
Microbiology Results
05/31/24 11:05 Influenza Types A & B (CRISTIANO) - Final
Nasal Swab Negative for Influenza A & B, NAAT
Negative results must be combined with clinical observations
and patient history.
Nucleic Acid Amplification test (NAAT)performed on the
[employer] platform.
--- NOTE | 2024-06-01 10:13 | CON.CAR ---
Addendum entered and electronically signed by Dallas Galloway MD 06/01/24 16:45:
I saw and examined the patient.
The Hat Lining Blocker's note was reviewed and I agree with the note.
Comment: Briefly, 73-year-old man past medical history of CVA with residual right hemiparesis who presented with cough and dyspnea found to be hypoxic and was admitted for aspiration pneumonia. Patient with significant leukocytosis and lactic
acidosis concerning for severe sepsis. In the setting of this a troponin was checked which was elevated, peaking at 1.9.
Patient tells me he has not been experiencing any chest discomfort during his admission here
Twelve-lead ECG from 05/31/2024 is unchanged from prior
Would continue empiric medical management with aspirin, high intensity statin as well as amlodipine as antianginal
Could consider addition of beta-josephine as hemodynamics tolerate
Reviewed that we could arrange for outpatient ischemic evaluation with stress testing however he does not seem inclined to proceed with this which is reasonable given his limited functional capacity
For completeness would recommend checking limited echo in a.m.
Rest per Pao Higginbotham
Original Note:
Consultation
Consultation Request
Date/Time Consultation Performed: 06/01/24
Requesting Provider: Dr. Woodson
Performing Provider: Pao Higginbotham PA-C for Dr. Galloway
Reason for Consultation: elevated troponin
Medical History
-
Chief Complaint: cough, SOB
History of Present Illness:
Patient is a 73 yo M with PMH type 2 diabetes, hypertension, hyperlipidemia, thrombocytosis, history of strokes with right-sided hemiparesis and cognitive impairment, neurogenic bladder and BPH with chronic indwelling Jackson catheter, depression,
history of right lower extremity DVT status post thrombolysis and balloon angioplasty in 2017 who is resident of [facility]. He presented to ER as after eating breakfast yesterday he had significant coughing and shortness of
breath with hypoxia. He is being treated for aspiration pneumonia. Cardiology consulted as noted to have troponin up to 1.9 and trending down. Patient without chest pain.
PMH:
History of multidrug resistant HTN
History of stroke x 3-old strokes noted on recent CT scan this admission
Cognitive dysfunction related to stroke
Expressive aphasia
Right sided hemiparesis
Chronic bedbound status
Hyperlipidemia
Diabetes
Thrombocytosis
Right lower extremity DVT status post thrombolysis and balloon angioplasty 08/2016
Neurogenic bladder and BPH with chronic Jackson catheter
History of alcohol abuse, quit 2016
Depression
Past Medical History
Past Medical History: Other (in HPI)
Social History
Alcohol: Former
Personal: Single
Living: [facility]
Employment: Disabled
Family History
Family History: Unable to Obtain
Allergies / Home Medications
Allergy/AdvReac Type Severity Reaction Status Date / Time
influenza virus vaccine, Allergy made him Verified 05/18/24 22:07
specific sick and
got the flu
steri strips Allergy Rash Uncoded 04/14/24 14:02
�Medication �Instructions �Recorded �Confirmed �Type
lamotrigine 200 mg tablet 200 mg PO DAILY Mental 09/10/20 05/31/24 History
Health/Anxiety
lisinopril 40 mg tablet 40 mg PO DAILY Blood pressure 09/10/20 05/31/24 History
sitagliptin phosphate 50 1 tab PO BID Diabetes 04/14/24 05/31/24 History
mg-metformin 500 mg tablet
(Janumet)
thiamine HCl (vitamin B1) 100 mg 100 mg PO DAILY Supplement 04/15/24 05/31/24 History
tablet
tamsulosin 0.4 mg capsule 0.4 mg PO DAILY #1 cap 04/19/24 05/31/24 Rx
acetaminophen 325 mg tablet 650 mg PO Q6HPRN PRN 05/18/24 05/31/24 History
FEVER>100/MILD PAIN
amlodipine 5 mg tablet 5 mg PO DAILY Blood Pressure 05/18/24 05/31/24 History
aspirin 81 mg chewable tablet 81 mg PO DAILY Blood Clot 05/18/24 05/31/24 History
Prevention/Tx
atorvastatin 80 mg tablet 80 mg PO HS High Cholesterol 05/18/24 05/31/24 History
bisacodyl 10 mg rectal suppository 10 mg OH DAILYPRN PRN MOM 05/18/24 05/31/24 History
INEFFECTIVE
bupropion HCl 300 mg 24 hr tablet, 300 mg PO DAILY Depression 05/18/24 05/31/24 History
extended release
cyanocobalamin (vitamin B-12) 1,000 mcg PO DAILY Supplement 05/18/24 05/31/24 History
1,000 mcg tablet
diphenoxylate-atropine 2.5 1 tab PO Q6HPRN PRN DIARRHEA 05/18/24 05/31/24 History
mg-0.025 mg tablet
magnesium hydroxide 400 mg/5 mL 2,400 mg PO E48OUUS PRN NO BM FOR 05/18/24 05/31/24 History
oral suspension (Milk of Magnesia) 3 DAYS
melatonin 5 mg tablet 5 mg PO HS Sleep 05/18/24 05/31/24 History
sodium phosphates 19 gram-7 118 ml OH DAILYPRN PRN BISACODYL 05/18/24 05/31/24 History
gram/118 mL enema (Fleet Enema) INEFFECTIVE
aripiprazole 5 mg tablet (Abilify) 5 mg PO DAILY 05/31/24 05/31/24 History
insulin glargine 100 unit/mL 12 unit SC HS 05/31/24 05/31/24 History
subcutaneous solution
Review of Systems
-
History Source: Patient
All other systems: Negative unless noted
Physical Exam
Vital Signs
Temp Pulse Resp BP Pulse Ox
98.4 F 66 21 105/62 99
06/01/24 03:00 06/01/24 06:45 06/01/24 06:45 06/01/24 06:00 06/01/24 06:45
Lab Results
06/01/24 05:08
06/01/24 05:08
Troponin I 1.600 ng/ml H* 05/31/24 23:59
Tnc-Q-Puohbyjgphq Pept 136 pg/ml 05/31/24 11:51
Physical Exam
General: No Apparent Distress and Comfortable
HEENT: Normocephalic, Anicteric and Moist Mucous Membranes
Respiratory: Clear (anterolaterally) and Non Labored Respirations
Cardiac: S1/S2 and Regular Rhythm
GI: Soft, Non Tender, Non Distended and Normal Bowel Sounds
Genito-urinary: Other (jackson catheter)
Musculoskeletal: No Clubbing, No Cyanosis and No Edema
Skin: Warm and Dry
Neuro: Awake, Alert, Oriented (to self) and Other (R sided weakness with RUE contracture)
Psych: Calm
Impression / Plan
-
Primary Senior Energy Consultant: none
Assessment:
Presentation with cough, SOB, hypoxia
Aspiration PNA
Elevated troponin
Severe atherosclerotic plaque in coronary arteries by chest CT 05/31/24
History of multidrug resistant HTN
History of stroke x 3-old strokes noted on recent CT scan this admission
Cognitive dysfunction related to stroke
Expressive aphasia
Right sided hemiparesis
Chronic bedbound status
Hyperlipidemia
Diabetes
Thrombocytosis
Right lower extremity DVT status post thrombolysis and balloon angioplasty 08/2016
Neurogenic bladder and BPH with chronic Jackson catheter
History of alcohol abuse, quit 2016
Depression
Echo 04/18/2024: EF 55 to 60%, wall motion analysis limited by image quality, no significant change compared to prior
Plan:
-Patient presents from longterm with cough, shortness of breath, hypoxia and being treated for aspiration pneumonia
-Cardiology consulted as noted to have elevated troponin, peak of 1.9 and trending down. Patient without chest pain
-EKG sinus rhythm with evidence of prior inferior infarct, however no acute ST changes noted
-Recent echo from 04/2024 with results as above
-Was noted by chest CT this admission to have evidence of severe atherosclerotic plaque in coronary arteries
-Given comorbidities and lack of symptoms, would plan to manage elevated troponin conservatively
-continue outpatient aspirin and statin
-Resume outpatient Norvasc as able. Would also consider addition of low-dose beta-josephine as blood pressure allows
-Discussed with nursing
Data Reviewed
-
EKG: Tracing Personally Visualized and interpreted
CT Scan: Report Reviewed by me
Medical Tests (Nuc Med, Echo etc): Report Reviewed by me
Labs: Labs Reviewed by me
Old Records: Reviewed
--- NOTE | 2024-06-01 10:15 | PTOTSP ---
Speech Language Pathology
VIDEOFLUOROSCOPIC SWALLOWING EXAMINATION (VSE) completed. Mild oral and mild-mod pharyngeal dysphagia noted. Only trace pharyngeal residue noted during study, mostly in pyriform sinuses. Penetration/aspiration with spillover from pyriform sinuses
along posterior wall. Rounded bulge noted anterior to the pyriform sinus/PES area. Supraglottic penetration noted with thin liquids via single cup/consecutive straw sips and mildly thick liquids via cup. Silent aspiration (PAS 8) noted with
mildly thick liquids via tsp and consecutive straw sips. Cleared aspiration to supraglottic space with cued cough.
Recommend:
(1) Regular solids/thin liquids
(2) Aspiration precautions: sit upright, slow rate, intermittent cough and reswallow
(3) Meds as tolerated
(4) Consider ENT consult to further assess visualized rounded bulge with some aspiration originating from this area/pyriform sinuses
(5) STEEL PAN FORM PLACING SUPERVISOR to continue to follow
--- NOTE | 2024-06-01 11:10 | PTCARENOTE ---
Pt off floor for VSE from [id number], therefore missing his 0945 accucheck.
[2024-06-01 11:23] LABS: Glucose - Point of Care 96 mg/dl (70-99)
--- NOTE | 2024-06-01 14:52 | PN.CDI ---
Addendum entered and electronically signed by Maxim Woodson MD 06/01/24 15:18:
no shock
Original Note:
CDI
- -
CDI:
Physician Documentation Request
Admit Date: 05/31/24 16:54
Dear Doctor Kandice,
Clinical Indicators:
Patient admitted with aspiration pneumonia.
05/31 H & P, 'Hypotensive shock secondary to sepsis/PNA...BP 96/65 > 127/79 improving-2 L IV NSS sepsis bolus given.'
WBC/Lactic Acid on admission:
05/31/24
11:05
WBC 21.9 H
Lactic Acid 3.7 H
HR/RR trend on admission:
05/31/24
10:58 05/31/24
11:30 05/31/24
12:00
Pulse 118 119 121
Resp Rate 23 21 19
05/31/24
13:00 05/31/24
14:30 05/31/24
15:30
Pulse 109 109 107
Resp Rate 22 23 23
05/31/24
15:00 05/31/24
15:30
Pulse 110 107
Resp Rate 32 23
Please clarify which of the following most accurately describes the status of the patient's infection:
Sepsis, POA
- Systemic manifestations of infection, with 2 or more SIRS criteria which include:
- Fever >100.4 degrees F or hypothermia < 96.8 degrees F
- Leukocytosis - WBC > 12,000 or leukopenia - WBC < 4,000 or > 10% bands
- Tachycardia > 90 beats per minute
- Tachypnea - RR > 20 breaths per minute or PaCO2 , 32mmHg
Source: Merck Manual 2013
Septic Shock, POA
- Severe sepsis associated with circulatory failure, evidenced by hypotension and hypoperfusion
Aspiration Pneumonia Only, Without Systemic Illness
Other, please specify
Use of terms such as suspected, likely, concern for, or probable (associated with a specific diagnosis that is being evaluated, monitored, or treated as if it exists) are acceptable and can be coded in the inpatient setting, when documented at the
time of discharge.
Thank you,
Ivelisse Alexandra RN BSN
CDI Specialist
available via tiger text
Please use your independent medical judgment in providing your response.
--- NOTE | 2024-06-01 15:15 | CM ---
CM spoke with nursing at [facility]
Pt is a LTC resident, MA bed hold
He is mostly bed/chair bound
2 person assist for transfers, unable to stand/pivot
He requires se up for meals and is able to feed himself
AxO at times, mostly forgetful
Has a chronic jackson since Mar 2024
Good skin integrity
PCP- Tasha Medeiros
Rx- [facility]/Philomena WILSON
Return SNF referral sent via [facility]
Discharge Disposition- return to [facility] for LTC
Phone- [phone] Fax- [phone]
[2024-06-01 16:28] LABS: Glucose - Point of Care 131 mg/dl (70-99)
--- NOTE | 2024-06-01 17:38 | PTCARENOTE ---
Recd pt this AM. Pt able to make needs known. Incontinent of large amount of stool. jackson draining clear, yellow urine. vital signs stable. Off cloor for CT scan at this time.
--- NOTE | 2024-06-01 17:45 | PTCARENOTE ---
Update son via phone on patient's progress.
[2024-06-01] MEDS: LOVENOX 40 MG SC (18:47)
[2024-06-01] MEDS: LIPITOR 80 MG PO (20:19)
[2024-06-01] MEDS: MELATONIN 5 MG PO (20:19)
[2024-06-01 23:23] LABS: Glucose - Point of Care 210 mg/dl (70-99)
[2024-06-01] MEDS: LANTUS 0.06 UNITS SC (23:31)
[2024-06-02] VITALS (14 sets, daily range): BP systolic 141–176; BP diastolic 66–95; PULSE 83–85; O2SAT 97–99; BMI 21.0
[2024-06-02] MEDS: ZOSYN 50 IV ×2 (02:54→08:05)
[2024-06-02 04:52] LABS: % Basophils 0.6 % (0-2); % Eosinophils 2.2 % (0-6); % Immature Granulocytes 0.5 % (0-0.5); % Lymphocytes 13.4 % (20.5-51.1); % Monocytes 6.5 % (1.7-9.3); % Neutrophils 76.8 % (42.2-75.2); Absolute Basophils 0.1 10^3/uL (0-0.2); Absolute Eosinophils 0.3 10^3/uL (0-0.7); Absolute Immature Granulocytes 0.1 10^3/uL (0-0.05); Absolute Lymphocytes 1.7 10^3/uL (1.2-3.4); Absolute Monocytes 0.8 10^3/uL (0.1-0.6); Absolute Neutrophils 9.8 10^3/uL (1.4-6.5); Hematocrit 32.4 % (39.0-52.0); Hemoglobin 10.8 g/dL (13.0-18.0); Mean Corp Hgb Conc. 33.3 g/dL (33.0-37.0); Mean Corpuscular Hgb 29.1 pg (27.0-31.0); Mean Corpuscular Volume 87.3 fL (80.0-94.0); Mean Platelet Volume 9.8 fL (7.4-10.4); Nucleated Red Blood Cells % 0 % (-); Platelet Count 275 10^3/uL (130-400); Red Blood Cell Count 3.71 10^6/uL (4.70-6.10); Red Cell Dist. Width 13.6 % (11.5-14.5); White Blood Cell Count 12.8 10^3/uL (4.8-10.8)
[2024-06-02 05:16] LABS: ALT (SGPT) 11 U/L (0-50); AST (SGOT) 17 U/L (17-59); Albumin 2.8 g/dl (3.5-5.0); Alkaline Phosphatase 81 U/L (38-126); Blood Urea Nitrogen 12 mg/dl (9-20); Calcium 8.6 mg/dl (8.4-10.2); Carbon Dioxide 21 mmol/L (22-30); Chloride 110 mmol/L (98-107); Estimated Creatinine Clearance 92 ml/min; Glucose 98 mg/dl (70-99); Potassium 3.6 mmol/L (3.5-5.1); Sodium 137 mmol/L (135-145); Total Bilirubin 0.6 mg/dl (0.2-1.3); eGFR > 60.00
--- NOTE | 2024-06-02 05:31 | PTCARENOTE ---
Patient rang call mckinnon and stated he was coughing on dinner last night. dinner tray taken away. pt was sat more up right in bed and swallowed water and pills with applesauce, no s/s of aspiration. no coughing noted. Sp02 WNL on RA. pt incont of BM;
dariusz care and CHG done. barrier cream applied to sacrum; red and blanchable. turned and repositioned throughout the night. heels floated. Rey in place, clear yellow urine. Denies any pain, denies leg cramping. tolerating IV abx. Right arm
contracted. Aphasia present with forgetfulness; pt baseline. pt pleasant and appreciative of care. call mckinnon and tray table within reach. pt calls appropriately for assistance.
[2024-06-02 07:47] LABS: Glucose - Point of Care 93 mg/dl (70-99)
[2024-06-02] MEDS: ABILIFY 5 MG PO (08:05)
[2024-06-02] MEDS: FLOMAX 0.4 MG PO (08:05)
[2024-06-02] MEDS: LAMICTAL 200 MG PO (08:05)
[2024-06-02] MEDS: WELLBUTRIN XL (24 hour extended release) 300 MG PO (08:05)
[2024-06-02] MEDS: VITAMIN B-12 1000 MCG PO (08:05)
[2024-06-02] MEDS: LOW STRENGTH ASPIRIN 81 MG PO (08:05)
[2024-06-02] MEDS: VITAMIN B1 100 MG PO (08:05)
[2024-06-02] MEDS: MUCINEX 600 MG PO ×2 (08:05→19:45)
--- NOTE | 2024-06-02 08:11 | PTCARENOTE ---
Patient received from weight shifter. Patient resting comfortably in bed. AAO, VSS. No events noted overnight. No complaints of pain at this time. Currently on Room Air. Continuing ABX. ECHO scheduled for this AM. Call mckinnon in reach.
--- NOTE | 2024-06-02 10:36 | W.PN.HOSP.TC ---
Today's Communication/Plan
-
ENT consult
switch to unasyn
If cont to improve - d/c in AM
Assessment / Plan
Assessment / Plan
73yo M with PMHx of ambulatory deficciency, HX of alcohol abuse, bedbound, with PMHx of CVA and R sided weakness, neurogenic bladder on chronic Rey, HTN, HLD, DM, depression came from SNF with cough started after breackfast, found hypoxia (O2sat
60%) and CT showed RLL pneumonia with bronchial impaction with mucus. Managed for aspiration pneumonia
A/P:
#Aspiration pneumonia with PMHx of dysphagia
#Acute hypoxic insufficiency - resolved
VAnco stopped since MRSA screen neg
Zosyn switch to unasyn on 06/02/24
Sputum Cx - was not able to provide
Legionella and S.pneumonia urinary AG ordered
Patient reported significant amount of mucus that he was coughing up day prior and has resolved hypoxia on the second day of admission - no need in Vest therapy
Mucinex
COVID-19 and Influenza PCR neg
MOTION PICTURE PROJECTIONIST APPRENTICE: previously recommended for regular solids, thin liquids, start dysphagia diet
Bcx NTD
MOTION PICTURE PROJECTIONIST APPRENTICE advised VSE, that found rounded bulge with some aspiration originating from it anterior to the pyriform sinus/PES area
#Bulge in posterior larynx
CT soft tissue neck: Prominent anterior spurring/calcification of the anterior longitudinal ligament in the cervical spine, which does cause compression of the cervical esophagus
ENT consult
#Liver cyst
#mild hiatal hernia
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
No follow up advised
#DISH
#DJD
tylenol
#Chronic urinary retention
cont Rey
#DM type 2 with neuropathy
Insulin, Accuchekcs, DM diet
Decrease Glargine with hypoglycemia
#Essential HTN, multidrug resistant
#IBS
#Hx of RLL DVT s/p thrombolysis and angio in 2017
#HLD
#ASCVD
#Seizure d/o
#BPPH
#Hx of CVA
#Bipolar d/o
cont home meds
#Elevated troponin, suspect non-ischemic myocardial injury 2/2 hypoxia
follow troponin
EKG on admission without TWI or ST changes that could indicate ACS
No previous cardiac Hx. No chest pain reported by the patient
Cardiology consult: could consider BB, outpatient iscemic w/u, but patient not interested in it, Echo
#Hx of DVT
no LE DVT on US
DVT ppx lovenox
DNR/DNI
I have spent at least 56min reviewing chart, test results, communication with consultants and providding direct patient care
Anticipated Discharge: 24 - 48 hours
Subjective/Interval History
-
Date of Service: June 02, 2024
Objective Data
-
Labs:
Laboratory Results
06/02/24
04:36
WBC 12.8 H
Hgb 10.8 L
Hct 32.4 L
Plt Count 275
Sodium 137
Potassium 3.6
Chloride 110 H
Carbon Dioxide 21 L
BUN 12
Creatinine 0.7
Glucose 98
Calcium 8.6
Total Bilirubin 0.6
AST 17
ALT 11
Alkaline Phosphatase 81
Vital Signs:
Vital Signs
Temp Pulse Resp BP Pulse Ox
97.5 F 83 19 143/66 97
06/02/24 07:05 06/02/24 06:00 06/02/24 06:00 06/02/24 06:00 06/02/24 06:00
I&O
06/01/24 06/02/24 06/03/24
06:59 06:59 06:59
Intake Total 150 / 150 100 / 100
Output Total 1550 / 1550 1000 / 1000
Balance -1400 / -1400 -900 / -900
Review of Systems
-
History Source: Patient
All other systems: Reviewed and negative
Physical Exam
-
General: No Apparent Distress
HEENT: Normocephalic, Atraumatic and Moist Mucous Membranes
Respiratory: Clear to Auscultation
Cardiac: Regular Rhythm
Musculoskeletal: No Clubbing, No Cyanosis and No Edema
Neuro: Awake, Alert, Oriented, AO x 3 and Other (RUE and RLE hemiparesis)
Psych: Calm
--- NOTE | 2024-06-02 12:07 | W.PN.CARDCBS ---
Addendum entered and electronically signed by Wayne Pierce MD 06/02/24 13:24:
I saw and examined the patient.
The It Support Technician's note was reviewed and I agree with the note.
Comment:
GEN: No distress, awake, Ox3
HEENT: supple, anicteric, mmm
LUNGS: scatt rhonchi
CV: Reg, S1/S2, 1/6 syst LSB, no gallop
ABD: soft, BS+, NT/ND
EXT: No edema
NEURO: Gross non-focal
SKIN: No rash
Plan:
Troponin is trending down. He has no chest pain. Continue Norvasc and add Toprol.
Will await echocardiogram.
With his multiple strokes and poor functional capacity and DNR will likely treat this abnormal troponin conservatively.
Continue aspirin and atorvastatin.
Original Note:
Today's Communication / Plan
-
resume OP norvasc. add toprol 12.5mg daily
follow up echo pending
plan for conservative mgmt of elevated troponin
Impression / Plan
-
Primary Processing Specialist: none
Assessment:
Presentation with cough, SOB, hypoxia
Aspiration PNA
Elevated troponin
Severe atherosclerotic plaque in coronary arteries by chest CT 05/31/24
History of multidrug resistant HTN
History of stroke x 3-old strokes noted on recent CT scan this admission
Cognitive dysfunction related to stroke
Expressive aphasia
Right sided hemiparesis
Chronic bedbound status
Hyperlipidemia
Diabetes
Thrombocytosis
Right lower extremity DVT status post thrombolysis and balloon angioplasty 08/2016
Neurogenic bladder and BPH with chronic Rey catheter
History of alcohol abuse, quit 2016
Depression
Echo 04/18/2024: EF 55 to 60%, wall motion analysis limited by image quality, no significant change compared to prior
Plan:
-Patient presents from detention with cough, shortness of breath, hypoxia and being treated for aspiration pneumonia
-Cardiology consulted as noted to have elevated troponin, peak of 1.9 and trending down. Patient without chest pain
-EKG sinus rhythm with evidence of prior inferior infarct, however no acute ST changes noted
-Recent echo from 04/2024 with results as above. follow up echo pending 06/02
-Was noted by chest CT this admission to have evidence of severe atherosclerotic plaque in coronary arteries
-Given comorbidities and lack of symptoms, would plan to manage elevated troponin conservatively
-continue outpatient aspirin and statin
-Resume outpatient Norvasc today. As BPs elevated today, will add toprol 12.5mg daily and can uptitrate as able. is also on lisinopril 40mg daily as OP which is presently on hold, resume as able
-Discussed with nursing
Progress Note - Processing Specialist
Subjective
Date of Service: June 02, 2024
no CP
Objective
Labs:
06/02/24 04:36
06/02/24 04:36
Labs
Hgb 10.8 g/dL (13.0-18.0) L 06/02/24 04:36
Hct 32.4 % (39.0-52.0) L 06/02/24 04:36
Plt Count 275 10^3/uL (130-400) 06/02/24 04:36
Sodium 137 mmol/L (135-145) 06/02/24 04:36
Potassium 3.6 mmol/L (3.5-5.1) 06/02/24 04:36
BUN 12 mg/dl (9-20) 06/02/24 04:36
Creatinine 0.7 mg/dL (0.7-1.3) 06/02/24 04:36
Glucose 98 mg/dl (70-99) 06/02/24 04:36
Troponins
05/31/24 05/31/24 05/31/24
11:05 11:51 18:43
Troponin I Cancelled 0.547 H* 1.920 H* D
05/31/24 06/01/24
23:59 09:30
Troponin I 1.600 H* 0.920 H*
Vital Signs and I&O:
Vital Signs
Temp Pulse Resp BP Pulse Ox
97.5 F 83 19 143/66 97
06/02/24 07:05 06/02/24 06:00 06/02/24 06:00 06/02/24 06:00 06/02/24 06:00
Vital Signs
Temp Pulse Resp BP Pulse Ox
97.5 F 83 19 143/66 97
06/02/24 07:05 06/02/24 06:00 06/02/24 06:00 06/02/24 06:00 06/02/24 06:00
Intake & Output
05/31/24 06/01/24 06/02/24 06/03/24
07:59 07:59 07:59 07:59
Intake Total 150 / 150 100 / 100
Output Total 1550 / 1550 1000 / 1000
Balance -1400 / -1400 -900 / -900
Physical Exam
Physical Exam
GEN: No distress, awake, alert, oriented x3
HEENT: supple, anicteric, mmm, eomi
LUNGS: CTA anterolaterally, no wheezes
CV: Reg, S1/S2, no murmur
ABD: soft, BS+, NT/ND
EXT: No cyanosis, clubbing, edema
NEURO: R sided weakness/RUE contracture
SKIN: Warm, pink, dry. No rash
[2024-06-02] MEDS: NORVASC 5 MG PO (12:27)
[2024-06-02] MEDS: UNASYN IV ×2 (12:28→17:43)
[2024-06-02 12:31] LABS: Glucose - Point of Care 99 mg/dl (70-99)
[2024-06-02] MEDS: TOPROL XL 12.5 MG PO (16:17)
--- NOTE | 2024-06-02 17:26 | PTCARENOTE ---
1510 Pt received from IMU via stretcher. Pt transferred from stretcher to bed with use of sliding transfer sheet and two nursing staff. Pt tolerated well. Rey cath placed to gravity. Pt oriented to staff and call light system. All needs met.
No report of distress at this time.
[2024-06-02] MEDS: LOVENOX 40 MG SC (17:50)
[2024-06-02 18:02] LABS: Glucose - Point of Care 100 mg/dl (70-99)
[2024-06-02] MEDS: LIPITOR 80 MG PO (19:45)
[2024-06-02 21:44] LABS: Glucose - Point of Care 136 mg/dl (70-99)
[2024-06-02] MEDS: LANTUS 0.06 UNITS SC (21:47)
[2024-06-02] MEDS: MELATONIN 5 MG PO (21:47)
[2024-06-03] MEDS: UNASYN IV ×3 (00:59→11:40)
[2024-06-03 03:00] VITALS: BP 141/82
[2024-06-03 07:05] VITALS: BP 140/78
[2024-06-03 07:47] LABS: Glucose - Point of Care 83 mg/dl (70-99)
--- NOTE | 2024-06-03 08:33 | W.PN.UPDATE ---
Update Note
Progress Note Update
echo 06/02 with preserved EF and no RWMA or significant valvular disease. continue norvasc, toprol, asa, statin. will plan to sign off. please call with questions.
[2024-06-03] MEDS: MUCINEX 600 MG PO (09:27)
[2024-06-03] MEDS: ABILIFY 5 MG PO (09:27)
[2024-06-03] MEDS: LAMICTAL 200 MG PO (09:27)
[2024-06-03] MEDS: NORVASC 5 MG PO (09:28)
[2024-06-03] MEDS: WELLBUTRIN XL (24 hour extended release) 300 MG PO (09:28)
[2024-06-03] MEDS: VITAMIN B1 100 MG PO (09:28)
[2024-06-03] MEDS: FLOMAX 0.4 MG PO (09:28)
[2024-06-03] MEDS: LOW STRENGTH ASPIRIN 81 MG PO (09:28)
[2024-06-03] MEDS: TOPROL XL 12.5 MG PO (09:28)
[2024-06-03] MEDS: VITAMIN B-12 1000 MCG PO (09:28)
[2024-06-03 10:18] LABS: % Basophils 0.8 % (0-2); % Eosinophils 2.3 % (0-6); % Immature Granulocytes 0.6 % (0-0.5); % Lymphocytes 15.9 % (20.5-51.1); % Monocytes 6.3 % (1.7-9.3); % Neutrophils 74.1 % (42.2-75.2); Absolute Basophils 0.1 10^3/uL (0-0.2); Absolute Eosinophils 0.2 10^3/uL (0-0.7); Absolute Immature Granulocytes 0.1 10^3/uL (0-0.05); Absolute Lymphocytes 1.4 10^3/uL (1.2-3.4); Absolute Monocytes 0.6 10^3/uL (0.1-0.6); Absolute Neutrophils 6.6 10^3/uL (1.4-6.5); Hematocrit 33.5 % (39.0-52.0); Hemoglobin 11.4 g/dL (13.0-18.0); Mean Corpuscular Hgb 29.3 pg (27.0-31.0); Mean Corpuscular Volume 86.1 fL (80.0-94.0); Mean Platelet Volume 9.8 fL (7.4-10.4); Nucleated Red Blood Cells % 0 % (-); Platelet Count 278 10^3/uL (130-400); Red Blood Cell Count 3.89 10^6/uL (4.70-6.10); Red Cell Dist. Width 13.7 % (11.5-14.5); White Blood Cell Count 8.9 10^3/uL (4.8-10.8)
--- NOTE | 2024-06-03 10:53 | W.PN.HOSP.TC ---
Today's Communication/Plan
-
dc
Assessment / Plan
Assessment / Plan
73yo M with PMHx of ambulatory deficciency, HX of alcohol abuse, bedbound, with PMHx of CVA and R sided hemiparesis, neurogenic bladder on chronic Rey, HTN, HLD, DM, depression came from SNF with cough started after breackfast, found hypoxia
(O2sat 60%) and CT showed RLL pneumonia with bronchial impaction with mucus. Managed for aspiration pneumonia, with improving leukocytosis on Unasyn, not hypoxic on RA and afebrile >24h before d/c, so reasonable to switch to Augmentin to complete
therapy in SNF. Medically stable for d/c
A/P:
#Aspiration pneumonia with PMHx of dysphagia
#Acute hypoxic insufficiency - resolved
VAnco stopped since MRSA screen neg
Zosyn switch to unasyn on 06/02/24, leukocytosis kept improving
Sputum Cx - was not able to provide
Legionella and S.pneumonia urinary AG ordered
Patient reported significant amount of mucus that he was coughing up day prior and has resolved hypoxia on the second day of admission - no need in Vest therapy
Mucinex
COVID-19 and Influenza PCR neg
PROJECT SCIENTIST: previously recommended for regular solids, thin liquids, start dysphagia diet
Bcx NTD
PROJECT SCIENTIST advised VSE, that found rounded bulge with some aspiration originating from it anterior to the pyriform sinus/PES area
#Bulge in posterior larynx
CT soft tissue neck: Prominent anterior spurring/calcification of the anterior longitudinal ligament in the cervical spine, which does cause compression of the cervical esophagus
ENT consult: no acute findings
#Liver cyst
#mild hiatal hernia
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
No follow up advised
#DISH
#DJD
tylenol
#Chronic urinary retention
cont Rey
#DM type 2 with neuropathy
Insulin, Accuchekcs, DM diet
Decrease Glargine with hypoglycemia
#Essential HTN, multidrug resistant
#IBS
#Hx of RLL DVT s/p thrombolysis and angio in 2017
#HLD
#ASCVD
#Seizure d/o
#BPPH
#Hx of CVA
#Bipolar d/o
cont home meds
#Elevated troponin, suspect non-ischemic myocardial injury 2/2 hypoxia
follow troponin
EKG on admission without TWI or ST changes that could indicate ACS
No previous cardiac Hx. No chest pain reported by the patient
Cardiology consult: could consider BB, outpatient ischemic w/u, but patient not interested in it,
Echo EF 55-60%, no valvular pathology, no regional wall motion abnormality.
#Hx of DVT
no LE DVT on US
DVT ppx lovenox
DNR/DNI
I have spent at least 56min reviewing chart, test results, communication with consultants and providding direct patient care
Anticipated Discharge: Today
Subjective/Interval History
-
Date of Service: June 03, 2024
Objective Data
-
Labs:
Laboratory Results
06/03/24
10:05
WBC 8.9
Hgb 11.4 L
Hct 33.5 L
Plt Count 278
Vital Signs:
Vital Signs
Temp Pulse Resp BP Pulse Ox
97.8 F 80 17 140/78 98
06/03/24 07:05 06/03/24 09:28 06/03/24 07:05 06/03/24 09:28 06/03/24 07:05
I&O
06/02/24 06/03/24 06/04/24
06:59 06:59 06:59
Intake Total 100 / 100 1540 / 1540
Output Total 1000 / 1000 1785 / 1785
Balance -900 / -900 -245 / -245
Review of Systems
-
History Source: Patient
All other systems: Reviewed and negative
Physical Exam
-
General: No Apparent Distress
HEENT: Normocephalic
Cardiac: Regular Rhythm
Neuro: Awake, Alert, Oriented and AO x 3
Psych: Calm
[2024-06-03 10:59] VITALS: BP 157/81
--- NOTE | 2024-06-03 11:01 | W.DCSUMMARY ---
Discharge Summary
Discharge Data
Date of Admission: 05/31/24
Date of Discharge: 06/03/24
-
Pending Results: No
Hospital Course
73yo M with PMHx of ambulatory deficciency, HX of alcohol abuse, bedbound, with PMHx of CVA and R sided hemiparesis, neurogenic bladder on chronic Rey, HTN, HLD, DM, depression came from SNF with cough started after breakfast, found hypoxia (O2sat
60%) and CT showed RLL pneumonia with bronchial impaction with mucus. Managed for aspiration pneumonia, with improving leukocytosis on Unasyn, not hypoxic on RA and afebrile >24h before d/c, so reasonable to switch to Augmentin to complete therapy
in SNF. Medically stable for d/c
Lisinopril decreased, Toprol added, Insulin Glargine decreased
I have spent at least 56min reviewing chart, test results, communication with consultants and providing direct patient care
Patient was managed for:
#Aspiration pneumonia with PMHx of dysphagia
#Acute hypoxic insufficiency - resolved
#Bulge in posterior larynx
#Liver cyst
#mild hiatal hernia
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
#DISH
#DJD
#Chronic urinary retention
#DM type 2 with neuropathy
#Essential HTN, multidrug resistant
#IBS
#Hx of RLL DVT s/p thrombolysis and angio in 2017
#HLD
#ASCVD
#Seizure d/o
#BPPH
#Hx of CVA
#Bipolar d/o
#Elevated troponin, suspect non-ischemic myocardial injury 2/2 hypoxia
#Hx of DVT
Discharge Plan
-
Patient Disposition: Halfway/SNF
Discharge Diagnosis/Procedures: Pneumonia
Diet: Low Cholesterol
Activity: As tolerated
Referrals:
Gordo Medeiros I., DO [Family Provider] -
Prescriptions:
New
metoprolol succinate 25 mg Tablet Extended Release 24 Hr
12.5 mg PO DAILY Qty: 30 0RF
guaifenesin 600 mg Tablet Extended Release 12hr
600 mg PO Q12 Qty: 30 0RF
lisinopril 10 mg tablet
10 mg PO DAILY Qty: 30 0RF
amoxicillin-pot clavulanate 875-125 mg tablet
1 tab PO Q12H Qty: 14 0RF
Continued
lamotrigine 200 MG tablet
200 mg PO DAILY
Janumet 50-500 mg Tablet
1 tab PO BID
thiamine HCl (vitamin B1) 100 MG tablet
100 mg PO DAILY
tamsulosin 0.4 mg Capsule
0.4 mg PO DAILY Qty: 1 0RF
atorvastatin 80 mg Tablet
80 mg PO HS
acetaminophen 325 mg Tablet
650 mg PO Q6HPRN PRN (Reason: FEVER>100/MILD PAIN)
cyanocobalamin (vitamin B-12) 1,000 mcg Tablet
1,000 mcg PO DAILY
diphenoxylate-atropine 2.5-0.025 mg Tablet
1 tab PO Q6HPRN PRN (Reason: DIARRHEA)
amlodipine 5 mg Tablet
5 mg PO DAILY
magnesium hydroxide [Milk of Magnesia] 400 mg/5 mL Suspension
2,400 mg PO [id number] PRN (Reason: NO BM FOR 3 DAYS)
bisacodyl 10 mg Suppository
10 mg FL DAILYPRN PRN (Reason: MOM INEFFECTIVE)
Fleet Enema 19-7 gram/118 mL Enema
118 ml FL DAILYPRN PRN (Reason: BISACODYL INEFFECTIVE)
aspirin 81 mg Tablet,Chewable
81 mg PO DAILY
melatonin 5 MG tablet
5 mg PO HS
bupropion HCl 300 mg Tablet Extended Release 24 Hr
300 mg PO DAILY
aripiprazole [Abilify] 5 mg Tablet
5 mg PO DAILY
Changed
insulin glargine 100 unit/mL Solution
6 unit SC HS Qty: 0 0RF
Discontinued
lisinopril 40 MG tablet
40 mg PO DAILY
Discharge Orders:
Discharge Patient (As Directed); Ordered 06/03/24
Ordered By: Maxim Woodsno
Discharge Date and Time
Print Language: GABONESE
[2024-06-03 11:46] LABS: Glucose - Point of Care 124 mg/dl (70-99)
--- NOTE | 2024-06-03 13:02 | CM ---
Received notification that patient is medically cleared for discharge. Called admissions who confirmed that patient can return today. Called patient's son, Vipin, who is agreeable to d/c and transfer back to [facility].
Reviewed IMM. It is now on chart.
Medical necessity and transfer sheet completed and provided to [facility] unit control clerk.
Plan: Case management will continue to follow and assist with discharge planning. Back to [facility].
--- NOTE | 2024-06-03 14:32 | PTCARENOTE ---
called [facility] to give report, spoke with person who transferred call to extension with VM. JACOBSONM to call [facility] directly for report
== END 2024-06-03 15:02 | DRG 871 ==
LOC: 3 WEST ACU 16:54
PROVIDERS: Clinical Nurse Specialist Family Health; ADMITTING PHYSICIAN Internal Medicine; ATTENDING PHYSICIAN Internal Medicine; CONSULT PHYSICIAN Internal Medicine Cardiovascular Disease; EMERGENCY PHYSICIAN Student in an Organized Health Care Education/Training Program; FAMILY PHYSICIAN Internal Medicine
DX: A41.9 Sepsis, unspecified organism (principal); J18.9 Pneumonia, unspecified organism; J69.0 Pneumonitis due to inhalation of food and vomit; I69.351 Hemiplegia and hemiparesis following cerebral infarction affecting right dominant side; I5A Non-ischemic myocardial injury (non-traumatic); Z16.24 Resistance to multiple antibiotics; J40 Bronchitis, not specified as acute or chronic; R06.89 Other abnormalities of breathing; R09.02 Hypoxemia; E11.40 Type 2 diabetes mellitus with diabetic neuropathy, unspecified; Z74.01 Bed confinement status; F31.9 Bipolar disorder, unspecified; Z79.899 Other long term (current) drug therapy; Z66 Do not resuscitate; Z79.82 Long term (current) use of aspirin; K76.89 Other specified diseases of liver; M48.14 Ankylosing hyperostosis [Forestier], thoracic region; K44.9 Diaphragmatic hernia without obstruction or gangrene; M19.90 Unspecified osteoarthritis, unspecified site; I10 Essential (primary) hypertension; Z11.52 Encounter for screening for COVID-19; G40.909 Epilepsy, unspecified, not intractable, without status epilepticus
CPT/HCPCS: 93308; 70491; 71275; 74230; 80048; 80053; 81003; 81015; 82962; 83605; 83880; 84484; 85025; 87040; 87502; 87641; 87811; 92526; 92610; 92611; 93005; 93970; 94669; 96365; 96366; 96375; 97163; 97167; 99291; Q9967